=== PATIENT | female | born 1960 | race Caucasian/White ===

== ENCOUNTER 2022-04-22 12:53 | Inpatient (IN) | payer OTHER, SELFPAY ==
--- NOTE | 2022-04-22 | ECG_ITS ---
Test Reason : MED CLEARANCE Blood Pressure : / mmHG Vent. Rate : 072 BPM Atrial Rate : 072 BPM P-R Int : 142 ms QRS Dur : 066 ms QT Int : 376 ms P-R-T Axes : 040 073 053 degrees QTc Int : 411 ms Normal sinus rhythm Normal ECG No previous ECGs available Referred By: Emma Shelton Electronically Signed By:VONNIE BURLESON
--- NOTE | ~2022-04-22 | XR_ITS ---
EXAMINATION: XR ABDOMEN KUB CLINICAL INDICATION: Constipation. COMPARISON: None TECHNIQUE: AP view of the abdomen. FINDINGS: There is a nonobstructive bowel gas pattern. Mild to moderate gas and stool are seen within the colon distally to the rectum. The osseous structures are unremarkable. XR/XR KUB IMPRESSION: Nonobstructive bowel gas pattern. Mild to moderate colonic stool burden.
--- NOTE | 2022-04-22 13:24 | ED_ITS ---
HPI - General Adult General Chief complaint: Psychiatric Symptoms Stated complaint: SI Time Seen by Provider: 04/22/22 13:24 Source: patient Mode of arrival: ambulatory Limitations: no limitations History of Present Illness HPI narrative: Patient is a 61 year old female presenting to the emergency department today with suicidal ideation and depression. Patient states that lately she has been much more depressed and yesterday, she had thoughts of hurting herself. Patient denies any dizziness, lightheadedness, abdominal pain, nausea, vomiting, fever, chills, blurry vision, double vision, loss of vision, chest pain, difficulty breathing, shortness of breath, back pain, night sweats, pain with urination, increased urinary frequency, increased urinary urgency, blood in her urine or stool, syncope or a near syncopal episode, recent trauma or falls, bowel incontinence, bladder incontinence, bowel retention, bladder retention, or any other complaints at this time. Onset (ago): day(s) Severity: mild Severity scale (1-10): 2 Relieving factors: none Exacerbating factors: none Associated symptoms: denies other symptoms Treatments prior to arrival: none Related Data Allergies Allergy/AdvReac Type Severity Reaction Status Date / Time Unable to Assess Allergy Verified 04/22/22 13:28 Review of Systems Constitutional: Constitutional: Reports no additional constitutional complaints, Denies chills, Denies fever(s) and Denies night sweats Eyes: Eyes: Reports no additional eye complaints, Denies blurry vision, Denies change in vision, Denies diplopia, Denies eye discharge, Denies loss of vision and Denies eye pain ENT: Denies dizziness Cardiovascular: Cardiovascular: Reports no additional cardiovascular complaints, Denies chest pain, Denies lightheadedness, Denies Loss of Consciousness and Denies dyspnea Respiratory: Respiratory: Reports no additional respiratory complaints and Denies dyspnea Gastrointestinal: Gastrointestinal: Reports no additional gastrointestinal complaints, Denies abdominal pain, Denies melena, Denies hematochezia, Denies change in bowel habits and Denies change in stool character Genitourinary: Genitourinary: Denies hematuria, Denies urinary frequency, Denies dysuria, Denies urinary incontinence, Denies urinary hesitancy and Denies urinary urgency Musculoskeletal: Musculoskeletal: Reports no additional musculoskeletal complaints, Denies numbness and Denies tingling Neurologic: Denies dizziness, Denies loss of vision, Denies numbness and De nies tingling Psychiatric: Psychiatric: Reports no additional psychiatric complaints, Reports depression and Reports suicidal ideation Endocrine: Endocrine: Reports no additional endocrine complaints Hematologic/Lymphatic: Hematologic/Lymphatic: Reports no additional hematologic/lymphatic complaints Allergic/Immunologic: Allergic/Immunologic: Reports no additional allergic/immunologic complaints [facility] Past Medical History Attestation statement: The following information was validated with the patient. Source: old records reviewed Social History Social History Advance Directives: No Advance Directives Information Provided: Yes Physical Exam ED Vital Signs: Vital Signs - 24 hr 04/22/22 15:02 Temperature 97.9 F Blood Pressure 130/79 Pulse Oximetry 97 Oxygen Delivery Method Room Air BMI result Body Mass Index 22.6 Const General: cooperative, no acute distress, alert and awake Nutritional Appearance: well nourished Orientation/consciousness: patient oriented x3 Limitations: no limitations HENMT Head: Yes normal to inspection and Yes atraumatic Ears: hearing grossly normal bilaterally and external ears normal General nose exam: Normal external nose present, no nasal discharge noted and no epistaxis Face and sinus: Yes normal facial exam, No abrasion and No laceration Mouth: Normal oral and palatal mucosa present, no drooling and no muffled voice Eyes General: appearance normal, both eyes and all related structures Periorbital: periorbital findings normal Eyelids: Yes eyelids normal Conjunctivae: conjunctivae normal Pupils: Equal, round and reactive pupils present EOM: EOMs intact bilaterally Neck Neck: Yes normal visual inspection, Yes full ROM and Yes no lymphadenopathy Chest Chest palpation & inspection: normal inspection of the chest Resp Effort & Inspection: normal respiratory effort and able to speak in complete se ntences Auscultation: clear to auscultation bilaterally Cardio Rate: regular rate Rhythm: regular rhythm GI Inspection: Yes normal to inspection Neuro General: patient oriented x3 and moves all extremities Cranial nerves: Yes Equal, round and reactive pupils present Cognition (Neuro): normal cognition Motor exam (neuro): 5/5 motor strength present throughout Sensory Exam: Normal double simultaneous stimulation for sensation Coordination: [id number] test normal Extrem General: Yes normal to inspection, Yes full ROM and Yes capillary refill normal Psych Appearance: grossly normal Mental Status: mental status grossly normal Affect: Sad affect present Attitude: cooperative Thought process: Normal thought process present Thought content: Suicidality present Insight: Good insight present (Psych) Medical Decision Making MDM Narrative Medical decision making narrative: Patient is a 61 year old female presenting to the emergency department today with increased depression and suicidal ideation. Patient's physical exam was unremarkable. Patient's blood work was unremarkable. Patient's urine showed an acute urinary tract infection. I explained my physical exam findings as well as all test results to the patient. I answered all questions asked by the patient. Patient was started on PO Keflex for her urinary tract infection. Patient is currently awaiting crisis evaluation. Differential Diagnosis Differential Diagnosis: depression, SI, UTI Medical Records Medical records reviewed: Yes I reviewed the patient's medical records. Lab Data Lab results reviewed: Yes I reviewed the patient's lab results. Labs: Lab Results 04/22/22 04/22/22 04/22/22 Range/Units 13:24 14:17 14:17 Urine Color Yellow Urine Appearance Clear Urine pH 7.0 (5.0-8.0) Ur Specific [place] 1.020 (1.005-1.025) Urine Protein Negative (Neg-Trace) mg/dL Urine Glucose (UA) Negative (Negative) mg/dL Urine Ketones 40 (Negative) mg/dL Urine Blood Negative (Negative) Urine Nitrite Negative (Negative) Ur Leukocyte Esterase Moderate (2+) H (Negative) Urine RBC 6-10 H (0-2) /HPF Urine WBC 11-20 H (0-5) /HPF Ur Squamous Epith Cells 3-5 (0-2) /HPF Urine Bacteria None Seen (None Seen) Hyaline Casts 0-2 (0-2) /LPF Urine Opiates Screen Not Detected (Not Detect) Urine Fentanyl Screen POSITIVE H (Not Detect) Ur Barbiturates Screen Not Detected (Not Detect) Valproic Acid (50.0-100.0) mcg/mL Ur Phencyclidine Scrn Not Detected (Not Detect) Ur Amphetamines Screen Not Detected (Not Detect) U Benzodiazepines Scrn Not Detected (Not Detect) Urine Cocaine Screen Not Detected (Not Detect) U Marijuana (THC) Screen Not Detected (Not Detect) COVID-19 ([facility]) Negative (Negative) COVID-19 Clin Com See Note 04/22/22 Range/Units 16:23 Urine Color Urine Appearance Urine pH (5.0-8.0) Ur Specific [place] (1.005-1.025) Urine Protein (Neg-Trace) mg/dL Urine Glucose (UA) (Negative) mg/dL Urine Ketones (Negative) mg/dL Urine Blood (Negative) Urine Nitrite (Negative) Ur Leukocyte Esterase (Negative) Urine RBC (0-2) /HPF Urine WBC (0-5) /HPF Ur Squamous Epith Cells (0-2) /HPF Urine Bacteria (None Seen) Hyaline Casts (0-2) /LPF Urine Opiates Screen (Not Detect) Urine Fentanyl Screen (Not Detect) Ur Barbiturates Screen (Not Detect) Valproic Acid 92.3 (50.0-100.0) mcg/mL Ur Phencyclidine Scrn (Not Detect) Ur Amphetamines Screen (Not Detect) U Benzodiazepines Scrn (Not Detect) Urine Cocaine Screen (Not Detect) U Marijuana (THC) Screen (Not Detect) COVID-19 ([facility]IS) (Negative) COVID-19 Clin Com Discharge Plan Discharge Clinical Impression: Depression, Suicidal ideation, Urinary tract infection Patient Disposition: Still a Patient Instructions: Depression (ED), Urinary Tract Infection in Women (ED) Print Language: Chinese
[2022-04-22 13:51] LABS: COVID-19 Test Negative (Negative); IDNOW Serial# 16C4AD1C
[2022-04-22 14:33] LABS: Appearance Urine Clear; Color Urine Yellow; Glucose Urine UA Negative (Negative); Leukocyte Esterase Urine Moderate (2+) (Negative); Nitrite Urine Negative (Negative); Urine Blood Negative (Negative); Urine Ketones 40 mg/dL (Negative); Urine Protein Negative (Neg-Trace)
[2022-04-22 14:47] LABS: Bacteria Urine None Seen (None Seen); Hyaline Casts Urine 0-2 /LPF (0-2); UACC Culture Trigger YES
[2022-04-22 14:49] LABS: Amphetamine Screen Urine Not Detected (Not Detect); Barbiturates, Urine Not Detected (Not Detect); Benzodiazepines Screen Urine Not Detected (Not Detect); Cannabinoid Screen Urine Not Detected (Not Detect); Cocaine Screen Urine Not Detected (Not Detect); Fentanyl, urine POSITIVE (Not Detect); Opiate Screen Urine Not Detected (Not Detect); Phencyclidine Screen Urine Not Detected (Not Detect)
[2022-04-22 15:02] VITALS: BP 130/79; TEMP 36.6; O2SAT 97; BMI 22.6
[2022-04-22 16:49] LABS: Valproate 92.3 mcg/mL (50.0-100.0)
[2022-04-22] MEDS: LORazepam 1 MG TABLET 2 MG PO (17:28)
[2022-04-22] MEDS: cephALEXin 500 MG CAPSULE PO ×2 (17:28→22:07)
[2022-04-22 21:35] LABS: Glucose, Whole Blood 106 mg/dL (60-115)
[2022-04-22 21:50] LABS: Alanine Aminotransferase 15 U/L (0-31); Albumin Level 3.8 g/dL (3.5-5.0); Alkaline Phosphatase 52 U/L (39-117); Anion Gap 13 (12-20); Aspartate Amino Transferase 20 U/L (5-31); Bilirubin Total < 0.2 mg/dL (0.0-1.0); Blood Urea Nitrogen 15 mg/dL (9-16); Calcium 8.5 mg/dL (8.4-10.2); Carbon Dioxide 30 mmol/L (22-29); Chloride 105 mmol/L (96-108); Creatinine Clr Calc Pharmacy 63.1; Estimated Glomerular Filt Rate > 60; Glucose Random 127 mg/dL (60-115); Potassium 5.3 mmol/L (3.3-5.1); Sodium 143 mmol/L (135-145); Total Protein 6.1 g/dL (6.5-8.0)
[2022-04-22 23:02] LABS: TSH reflex Free T4 2.42 uIU/mL (0.32-4.0)
[2022-04-23 04:25] VITALS: BP 129/69; PULSE 79; RESP 14; TEMP 36.4; O2SAT 95
--- NOTE | 2022-04-23 06:45 | PC.NURSE ---
Patient slept through the night, no distress observed/reported, med rec completed/pending provider's approval, medication will be resumed after psych consult, patient's daughter Ti cell # [phone] called to jazmin barrera hand, daughter reported it all started after patient was started on Depakote early March, provider notified of the news, behavior appropriate, VSS, disposition per [facility] is section 12 inpatient bed search, will continue to monitor.
--- NOTE | 2022-04-23 07:31 | PC.NURSE ---
patient appears to remain asleep at present respirations are even and unlabored patient appears in no distress
[2022-04-23 09:53] LABS: Ammonia 50 umol/L (13-55)
[2022-04-23 09:57] LABS: Basophils Percent Auto 0.6 % (0-2); Eosinophils Absolute Auto 0.1 X10*3/uL (0.0-0.4); Eosinophils Percent Auto 2.7 % (0-4); Hematocrit 44.8 % (37.0-47.0); Hemoglobin 14.4 g/dl (12.0-16.0); Imm Gran Abs Auto 0.01 X10*3/uL (0.00-0.03); Imm Gran Pct Auto 0.2 % (0.0-0.4); Lymphocytes Absolute Auto 1.9 X10*3/uL (1.2-4.9); Lymphocytes Percent Auto 35.7 % (20-40); MANUAL DIFF FLAG SCAN; Mean Corpuscular HGB Conc 32.1 g/dl (31.0-35.0); Mean Corpuscular Hemoglobin 29.6 pg (27.0-33.0); Mean Corpuscular Volume 92.2 fL (80.0-98.0); Mean Platelet Volume 11.9 fL (9.4-12.3); Monocytes Absolute Auto 0.4 X10*3/uL (0.1-1.2); Monocytes Percent Auto 7.6 % (2-11); Neutrophils Absolute Auto 2.8 x10*3/uL (2.0-8.3); Neutrophils Percent Auto 53.2 % (45-73); PLT CLUMP 1; Red Blood Count 4.86 X10*6/uL (4.20-5.50); Red Cell Distribution Width 13.8 % (11.0-16.0); SCAN SMEAR FLAG 1
[2022-04-23] MEDS: cephALEXin 500 MG CAPSULE PO ×4 (10:15→21:44)
[2022-04-23] MEDS: hydrOXYzine HCL 25 MG TABLET PO (10:15)
--- NOTE | 2022-04-23 10:24 | PC.NURSE ---
while administering meds, patient exhibits continued confusion aeb client took meds in mouth then placed pills back in med cup and floated them in water, patient started to hand back to t/w and i explained she should take the medication.
[2022-04-23 10:46] LABS: White Blood Count 5.3 X10*3/uL (4.8-10.8)
[2022-04-23 10:49] LABS: SLIDE REVIEW VERIFIED
--- NOTE | 2022-04-23 13:35 | PHA.MEDREC ---
Pharmacy Consult ? Medication Reconciliation Pharmacy has completed the medication reconciliation. Reviewed med rec done by nursing
[2022-04-23 14:06] VITALS: BP 92/48; PULSE 80; RESP 12; TEMP 36.4; O2SAT 97
[2022-04-23] MEDS: FLUoxetine HCl 20 MG CAPSULE PO (14:42)
[2022-04-23] MEDS: Divalproex Sodium ER 250 MG TAB.ER.24H PO (14:43)
[2022-04-23] MEDS: ARIPiprazole 10 MG TABLET PO ×2 (14:43→21:40)
--- NOTE | 2022-04-23 15:22 | PC.NURSE ---
Pt seen this date for individual OT tx. Pt presents with depressed mood however reports feeling better than yesterday as well as sleeping through the night. Pt is receptive to crossword puzzles, coloring pages, and sensory item provided.
[2022-04-23 17:25] VITALS: BP 120/77; PULSE 85; RESP 16; TEMP 36.4; O2SAT 98
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
--- NOTE | 2022-04-23 19:30 | PC.NURSE ---
Pt is a COVID-negative female who presented to ED with depression and passive SI at request of daughter due to pt?s erratic, paranoid and bizarre behavior, not sleeping, talking to herself, AVH, possibly olfactory hallucinations, impaired insight and judgment. Recent weight loss of up to 20+ lbs., low appetite, low energy. Pt reports a fall at [facility] where she tripped. MedHx: Trouble opening right eye in a.m., reports intermittent tachycardia, reports left lung pain/points to back, poor appetite per daughter, UTI per [id number] (on Keflex), dry skin, right leg swelling in stein area. Reports hx of sleep apnea but inability to use the CPAP. PsycheHx: Schizoaffective disorder, bipolar type. Daughter reported pt packing bag and dressing in heels to go to the bathroom, letting dogs out in middle of the night, and VH of worms on food and on her hands.? High fall risk due to unclear fall hx. Pt reported falling at [facility] in the past few days.
[2022-04-23] MEDS: Divalproex Sodium ER 500 MG TAB.ER.24H 1000 MG PO (21:40)
[2022-04-24] MEDS: Levothyroxine Sodium 25 MCG TABLET PO (06:17)
[2022-04-24] MEDS: Omeprazole 40 MG CAPSULE.DR PO (06:17)
[2022-04-24 09:44] LABS: Estimated Average Glucose 111 mg/dL; Hemoglobin A1c % 5.5 %
[2022-04-24 10:00] LABS: Alanine Aminotransferase 16 U/L (0-31); Alkaline Phosphatase 43 U/L (39-117); Anion Gap 15 (12-20); Aspartate Amino Transferase 21 U/L (5-31); Bilirubin Total 0.4 mg/dL (0.0-1.0); Blood Urea Nitrogen 16 mg/dL (9-16); Carbon Dioxide 29 mmol/L (22-29); Chloride 103 mmol/L (96-108); Cholesterol 195 mg/dL; Creatinine Clr Calc Pharmacy 59.1; Estimated Glomerular Filt Rate > 60; Glucose Fasting 96 mg/dL (60-99); HDL Cholesterol 73 mg/dL; LDL Cholesterol Calculated 110 mg/dl; Potassium 4.6 mmol/L (3.3-5.1); Sodium 142 mmol/L (135-145); Total Protein 6.6 g/dL (6.5-8.0); Triglycerides 61 mg/dL
[2022-04-24 10:13] VITALS: BP 128/65; PULSE 87; RESP 16; TEMP 36.6; O2SAT 99
[2022-04-24] MEDS: Divalproex Sodium ER 250 MG TAB.ER.24H PO (10:15)
[2022-04-24] MEDS: FLUoxetine HCl 20 MG CAPSULE PO (10:15)
[2022-04-24] MEDS: ARIPiprazole 10 MG TABLET PO (10:15)
[2022-04-24] MEDS: cephALEXin 500 MG CAPSULE PO ×4 (10:15→20:20)
[2022-04-24] MEDS: Cholecalciferol (Vitamin D3) 10 MCG TABLET PO (10:16)
[2022-04-24 10:22] LABS: Thyroid Stimulating Hormone 5.06 uIU/mL (0.32-4.0)
[2022-04-24 10:36] LABS: Vitamin B12 885 pg/mL (200-900)
[2022-04-24] MEDS: Acetaminophen 325 MG TABLET 650 MG PO ×2 (14:50→20:20)
[2022-04-24] MEDS: Throat Lozenge, Medicated LOZENGE 1 LOZENGE MUCOUS MEM ×2 (17:09→19:08)
--- NOTE | 2022-04-24 17:24 | P.PNPSI_ITS ---
Subjective Subjective Date of Service: 04/24/22 Reason For Visit: psychosis Subjective Notes: Benjamin Warning and Conditional Voluntary Healthcare Proxy: No Guardianship: No Medical Problems Affecting Mental Status: No Interim History: I discussed pt with team. I evaluated pt this evening and upon interview pt reports she feels ?better,? has a cough. Still feels ?depressed.? She slept 8-7 hours last night. Anxiety is ?so, so.? Endorses AH, but says ?I dont understand? what they are saying. Denies having fears. Ate all of her dinner. Denies SI/SIB/HI. Says she feels safe. Mental Status Exam Mental Status Exam Narrative: A&O. In casual attire, appears older than stated age. Good eye contact, attentive. No Tics or Tremors. No abnormal involuntary movements. Calm, however appears to be minimizing sx or has poor insight, guarded. Non-pressured speech, spontaneous with regular rate and rhythm, normal volume and prosody. No prolonged speech latency or dysarthria. Mood is ?depressed,? affect is constricted. Denies SI/SIB/HI upon inquiry. Endorses AH, denies VH. Has paranoid delusional thought content. Thoughts are concrete, linear. No known cognitive or memory impairment. Insight/ Judgment limited. Diagnostics Vital Signs (24Hr): Vital Signs - 24 hr 04/23/22 17:25 04/24/22 10:13 Temperature 97.5 F 97.9 F Pulse Rate 85 87 Respiratory Rate 16 16 Blood Pressure 120/77 128/65 Pulse Oximetry 98 99 Oxygen Delivery Method Room Air Room Air BMI result Body Mass Index 22.6 Labs Results: 04/23/22 09:40 04/24/22 09:16 Labs: Laboratory Results - last 48 hr 04/22/22 04/22/22 04/23/22 21:20 21:21 09:40 WBC 5.3 RBC 4.86 Hgb 14.4 Hct 44.8 MCV 92.2 MCH 29.6 MCHC 32.1 RDW 13.8 Plt Count TNP MPV 11.9 Immature Gran % (Auto) 0.2 Neut % (Auto) 53.2 Lymph % (Auto) 35.7 [place] % (Auto) 7.6 Eos % (Auto) 2.7 Baso % (Auto) 0.6 Lymph # (Auto) 1.9 [place] # (Auto) 0.4 Eos # (Auto) 0.1 Baso # (Auto) 0.0 Abs Immat Gran (auto) 0.01 Absolute Neuts (auto) 2.8 Absolute Nucleated RBC 0.000 Nucleated RBC % (auto) 0.0 Smear Tech's Comments VERIFIED Sodium 143 Potassium 5.3 H Chloride 105 Carbon Dioxide 30 H Anion Gap 13 BUN 15 Creatinine 0.74 Estim Creat Clear Calc 63.1 Estimated GFR > 60 POC Glucose 106 Random Glucose 127 H Fasting Glucose Estimat Average Glucose Hemoglobin A1c % Calcium 8.5 Total Bilirubin < 0.2 AST 20 ALT 15 Alkaline Phosphatase 52 Ammonia Total Protein 6.1 L Albumin 3.8 Triglycerides Cholesterol LDL Cholesterol, Calc HDL Cholesterol Vitamin B12 TSH 2.42 04/23/22 04/24/22 04/24/22 09:41 09:16 09:16 WBC RBC Hgb Hct MCV MCH MCHC RDW Plt Count MPV Immature Gran % (Auto) Neut % (Auto) Lymph % (Auto) [place] % (Auto) Eos % (Auto) Baso % (Auto) Lymph # (Auto) [place] # (Auto) Eos # (Auto) Baso # (Auto) Abs Immat Gran (auto) Absolute Neuts (auto) Absolute Nucleated RBC Nucleated RBC % (auto) Smear Tech's Comments Sodium 142 Potassium 4.6 Chloride 103 Carbon Dioxide 29 Anion Gap 15 BUN 16 Creatinine 0.79 Estim Creat Clear Calc 59.1 Estimated GFR > 60 POC Glucose Random Glucose Fasting Glucose 96 Estimat Average Glucose 111 Hemoglobin A1c % 5.5 Calcium 9.0 Total Bilirubin 0.4 AST 21 ALT 16 Alkaline Phosphatase 43 Ammonia 50 Total Protein 6.6 Albumin 4.0 Triglycerides 61 Cholesterol 195 LDL Cholesterol, Calc 110 HDL Cholesterol 73 Vitamin B12 TSH 5.06 H 04/24/22 09:16 WBC RBC Hgb Hct MCV MCH MCHC RDW Plt Count MPV Immature Gran % (Auto) Neut % (Auto) Lymph % (Auto) [place] % (Auto) Eos % (Auto) Baso % (Auto) Lymph # (Auto) [place] # (Auto) Eos # (Auto) Baso # (Auto) Abs Immat Gran (auto) Absolute Neuts (auto) Absolute Nucleated RBC Nucleated RBC % (auto) Smear Tech's Comments Sodium Potassium Chloride Carbon Dioxide Anion Gap BUN Creatinine Estim Creat Clear Calc Estimated GFR POC Glucose Random Glucose Fasting Glucose Estimat Average Glucose Hemoglobin A1c % Calcium Total Bilirubin AST ALT Alkaline Phosphatase Ammonia Total Protein Albumin Triglycerides Cholesterol LDL Cholesterol, Calc HDL Cholesterol Vitamin B12 885 TSH Medications Medications Current Medications Acetaminophen (Acetaminophen 325 Mg Tablet) 650 mg PO Q6H PRN PRN Reason: Headache/Pain Mild Scale (1-3) Last Admin: 04/24/22 14:50 Dose: 650 mg Al Hydroxide/Mg Hydroxide (Magnesium Hydrox/Alum Hydrox 30 Ml Oral.Susp) 30 ml PO Q6H PRN PRN Reason: Heartburn/Nausea Aripiprazole (Aripiprazole 10 Mg Tablet) 10 mg PO BID [facility] Last Admin: 04/24/22 10:15 Dose: 10 mg Benzocaine (Throat Lozenge, Medicated Lozenge) 1 lozenge MUCOUS MEM Q2H PRN PRN Reason: Sore Throat Last Admin: 04/24/22 17:09 Dose: 1 lozenge Benztropine Mesylate (Benztropine Mesylate 0.5 Mg Tablet) 0.5 mg PO BID PRN PRN Reason: Extrapyramidal Effects/Symptoms Cephalexin HCl (Cephalexin 500 Mg Capsule) 500 mg PO QID [facility] Stop: 04/29/22 17:10 Last Admin: 04/24/22 17:09 Dose: 500 mg Divalproex Sodium (Divalproex Sodium Er 500 Mg Tab.Er.24h) 1,000 mg PO BEDTIME [facility] Last Admin: 04/23/22 21:40 Dose: 1,000 mg Divalproex Sodium (Divalproex Sodium Er 250 Mg Tab.Er.24h) 250 mg PO DAILY [facility] Last Admin: 04/24/22 10:15 Dose: 250 mg Fluoxetine HCl (Fluoxetine Hcl 20 Mg Capsule) 20 mg PO DAILY [facility] Last Admin: 04/24/22 10:15 Dose: 20 mg Hydroxyzine HCl (Hydroxyzine Hcl 25 Mg Tablet) 25 mg PO Q6H PRN PRN Reason: Anxiety Levothyroxine Sodium (Levothyroxine Sodium 25 Mcg Tablet) 25 mcg PO DAILY@0600 [facility] Last Admin: 04/24/22 06:17 Dose: 25 mcg Magnesium Hydroxide (Milk Of Magnesia 30 Ml Oral.Susp) 30 ml PO DAILY PRN PRN Reason: Constipation Omeprazole (Omeprazole 40 Mg Capsule.Dr) 40 mg PO DAILY@0630 [facility] Last Admin: 04/24/22 06:17 Dose: 40 mg Trazodone HCl (Trazodone Hcl 50 Mg Tablet) 50 mg PO BEDTIME PRN PRN Reason: Insomnia Trazodone HCl (Trazodone Hcl 50 Mg Tablet) 50 mg PO BEDTIME PRN PRN Reason: Insomnia Vitamin D (Cholecalciferol (Vitamin D3) 10 Mcg Tablet) 10 mcg PO DAILY [facility] Last Admin: 04/24/22 10:16 Dose: 10 mcg Allergies Allergies Allergy/AdvReac Type Severity Reaction Status Date / Time No Known Allergies Allergy Verified 04/22/22 18:53 Assessment & Plan Assessment & Plan (1) Schizoaffective disorder, bipolar type: Status: Acute Code(s): F25.0 - Schizoaffective disorder, bipolar type Plan Martina is a 61 y.o. Female who carries a dx schizoaffective disorder, bipolar type. She presented to [facility] on 04/22/22 due to her daughter being concerned with her behavior i.e. has not slept x 2 weeks, packs her bags and tries to leave the house in the middle of the night, pouring bleach on meat due to believing there are worms in it. Pt recently discharged from [facility] in 03/2022 due to med non-adherence and decompensation. She has been med adherent since discharge, however daughter does not notice any change in behavior. Pt has hx of paranoid ideations, believing she has worms in her body, and AH. ? of dementia. Plan: Pt's daughter reports depakote is causing tremor, this was not observed but will consider tapering down due to questionable benefit VPA 92.3 on admission. Pt's abilify recently increased on 04/15/22 from 15 mg daily to 10 mg BID, unclear benefit. Pt has hx of med non-adherence but daughter does not want NÚÑEZ again due to hx of EPS on invega sustenna. Will consider zydis to help with sleep and psychosis. 04/24: Will start propranolol 10 mg BID for depakote related tremor and lower depakote to 750 mg daily due to stated SE. Will start zydis 5 mg QHS and lower abilify to 5 mg BID as cross titration for sx of psychosis. Q15 min safety checks, CV Monitor response to medications. Monitor for safety in the milieu. Discharge on stabilization. Patient seen. Chart reviewed. Discussed with team. Obtain collateral contact info?as needed I spent minutes with the patient and/or on the patient floor today, greater than?50% of which was spent counseling/coordinating care. Patient educated on: diagnosis, medication risk/benefits and therapeutic strategies Reason for contiued inpatient stay Substantial Risk for: inability to function, rapid decompensation and med/psych decompensation
[2022-04-24 20:20] VITALS: BP 135/77; PULSE 95; RESP 18; TEMP 36.8; O2SAT 99
[2022-04-24] MEDS: OLANZapine ODT 10 MG TAB.RAPDIS 5 MG TRANSLINGU (20:20)
[2022-04-24] MEDS: Divalproex Sodium ER 500 MG TAB.ER.24H PO (20:21)
[2022-04-24] MEDS: Propranolol HCL 10 MG TABLET PO (20:21)
[2022-04-24] MEDS: ARIPiprazole 5 MG TABLET PO (20:21)
[2022-04-24 21:47] LABS: COVID-19 Test Negative (Negative)
[2022-04-25] MEDS: Throat Lozenge, Medicated LOZENGE 1 LOZENGE MUCOUS MEM ×2 (02:39→21:03)
[2022-04-25 09:00] VITALS: BP 133/87; PULSE 77; RESP 18; TEMP 36.4; O2SAT 98
--- NOTE | 2022-04-25 09:12 | HO.PSYCHPN ---
Subjective Subjective Date of Service: 04/25/22 Reason For Visit: psychosis Subjective Notes: Benjamin Warning and Conditional Voluntary Healthcare Proxy: No Guardianship: No Medical Problems Affecting Mental Status: No Interim History: I spoke with pt's team and evaluated pt with dock grader. She says she alright, tremors are a little better. Denies dizziness on propranolol. Appetite is good, but says it has been 3-4 or more days since last BM, will prescrie SANDRA nunez. Sleep is okay, improved on olanzapine. Says she still hears voices but doesnt know what they are saying. Says depression is the same. Feels a little anxious, unable to say why. Medication Compliance: Yes Side effects from medications: No Attending Groups: No Review of Systems Acute medical concerns: No Medical Review of Systems: unchanged Mental Status Exam Mental Status Exam Narrative: A&O. In casual attire, appears older than stated age. Good eye contact, attentive. No Tics or Tremors. No abnormal involuntary movements. Calm, however appears to be minimizing sx or has poor insight, guarded. Non-pressured speech, spontaneous with regular rate and rhythm, normal volume and prosody. No prolonged speech latency or dysarthria. Mood is ?depressed,? affect is constricted. Denies SI/SIB/HI upon inquiry. Endorses AH, denies VH. Has paranoid delusional thought content. Thoughts are concrete, linear. No known cognitive or memory impairment. Insight/ Judgment limited. Diagnostics Vital Signs (24Hr): Vital Signs - 24 hr 04/24/22 10:13 04/24/22 20:20 Temperature 97.9 F 98.2 F Pulse Rate 87 95 Respiratory Rate 16 18 Blood Pressure 128/65 135/77 Pulse Oximetry 99 99 Oxygen Delivery Method Room Air Room Air BMI result Body Mass Index 22.6 Labs Results: 04/23/22 09:40 04/24/22 09:16 Labs: Laboratory Results - last 48 hr 04/23/22 04/23/22 04/24/22 09:40 09:41 09:16 WBC 5.3 RBC 4.86 Hgb 14.4 Hct 44.8 MCV 92.2 MCH 29.6 MCHC 32.1 RDW 13.8 Plt Count TNP MPV 11.9 Immature Gran % (Auto) 0.2 Neut % (Auto) 53.2 Lymph % (Auto) 35.7 [place] % (Auto) 7.6 Eos % (Auto) 2.7 Baso % (Auto) 0.6 Lymph # (Auto) 1.9 [place] # (Auto) 0.4 Eos # (Auto) 0.1 Baso # (Auto) 0.0 Abs Immat Gran (auto) 0.01 Absolute Neuts (auto) 2.8 Absolute Nucleated RBC 0.000 Nucleated RBC % (auto) 0.0 Smear Tech's Comments VERIFIED Sodium 142 Potassium 4.6 Chloride 103 Carbon Dioxide 29 Anion Gap 15 BUN 16 Creatinine 0.79 Estim Creat Clear Calc 59.1 Estimated GFR > 60 Fasting Glucose 96 Estimat Average Glucose Hemoglobin A1c % Calcium 9.0 Total Bilirubin 0.4 AST 21 ALT 16 Alkaline Phosphatase 43 Ammonia 50 Total Protein 6.6 Albumin 4.0 Triglycerides 61 Cholesterol 195 LDL Cholesterol, Calc 110 HDL Cholesterol 73 Vitamin B12 TSH 5.06 H COVID-19 ([facility]) [id number] 04/24/22 04/24/22 04/24/22 09:16 09:16 21:15 WBC RBC Hgb Hct MCV MCH MCHC RDW Plt Count MPV Immature Gran % (Auto) Neut % (Auto) Lymph % (Auto) [place] % (Auto) Eos % (Auto) Baso % (Auto) Lymph # (Auto) [place] # (Auto) Eos # (Auto) Baso # (Auto) Abs Immat Gran (auto) Absolute Neuts (auto) Absolute Nucleated RBC Nucleated RBC % (auto) Smear Tech's Comments Sodium Potassium Chloride Carbon Dioxide Anion Gap BUN Creatinine Estim Creat Clear Calc Estimated GFR Fasting Glucose Estimat Average Glucose 111 Hemoglobin A1c % 5.5 Calcium Total Bilirubin AST ALT Alkaline Phosphatase Ammonia Total Protein Albumin Triglycerides Cholesterol LDL Cholesterol, Calc HDL Cholesterol Vitamin B12 885 TSH COVID-19 ([facility]) Negative COVID-19 [employer] See Note Medications Medications Current Medications Acetaminophen (Acetaminophen 325 Mg Tablet) 650 mg PO Q6H PRN PRN Reason: Headache/Pain Mild Scale (1-3) Last Admin: 04/24/22 20:20 Dose: 650 mg Al Hydroxide/Mg Hydroxide (Magnesium Hydrox/Alum Hydrox 30 Ml Oral.Susp) 30 ml PO Q6H PRN PRN Reason: Heartburn/Nausea Aripiprazole (Aripiprazole 5 Mg Tablet) 5 mg PO BID [facility] Last Admin: 04/24/22 20:21 Dose: 5 mg Benzocaine (Throat Lozenge, Medicated Lozenge) 1 lozenge MUCOUS MEM Q2H PRN PRN Reason: Sore Throat Last Admin: 04/25/22 02:39 Dose: 1 lozenge Benztropine Mesylate (Benztropine Mesylate 0.5 Mg Tablet) 0.5 mg PO BID PRN PRN Reason: Extrapyramidal Effects/Symptoms Cephalexin HCl (Cephalexin 500 Mg Capsule) 500 mg PO QID [facility] Stop: 04/29/22 17:10 Last Admin: 04/24/22 20:20 Dose: 500 mg Divalproex Sodium (Divalproex Sodium Er 250 Mg Tab.Er.24h) 250 mg PO DAILY [facility] Last Admin: 04/24/22 10:15 Dose: 250 mg Divalproex Sodium (Divalproex Sodium Er 500 Mg Tab.Er.24h) 500 mg PO BEDTIME [facility] Last Admin: 04/24/22 20:21 Dose: 500 mg Guaifenesin/Dextromethorphan (Guaifenesin Dm 100/10/5 Ml 5 Ml Syrup) 5 ml PO Q6H PRN PRN Reason: cough Hydroxyzine HCl (Hydroxyzine Hcl 25 Mg Tablet) 25 mg PO Q6H PRN PRN Reason: Anxiety Levothyroxine Sodium (Levothyroxine Sodium 25 Mcg Tablet) 25 mcg PO DAILY@0600 [facility] Last Admin: 04/24/22 06:17 Dose: 25 mcg Magnesium Hydroxide (Milk Of Magnesia 30 Ml Oral.Susp) 30 ml PO DAILY PRN PRN Reason: Constipation Olanzapine (Olanzapine Odt 10 Mg Tab.Rapdis) 5 mg TRANSLINGU BEDTIME [facility] Last Admin: 04/24/22 20:20 Dose: 5 mg Omeprazole (Omeprazole 40 Mg Capsule.Dr) 40 mg PO DAILY@0630 [facility] Last Admin: 04/24/22 06:17 Dose: 40 mg Propranolol HCl (Propranolol Hcl 10 Mg Tablet) 10 mg PO BID [facility]; Protocol Last Admin: 04/24/22 20:21 Dose: 10 mg Trazodone HCl (Trazodone Hcl 50 Mg Tablet) 50 mg PO BEDTIME PRN PRN Reason: Insomnia Vitamin D (Cholecalciferol (Vitamin D3) 10 Mcg Tablet) 10 mcg PO DAILY [facility] Last Admin: 04/24/22 10:16 Dose: 10 mcg Allergies Allergies Allergy/AdvReac Type Severity Reaction Status Date / Time No Known Allergies Allergy Verified 04/22/22 18:53 Assessment & Plan Assessment & Plan (1) Schizoaffective disorder, bipolar type: Status: Acute Code(s): F25.0 - Schizoaffective disorder, bipolar type Plan Martina is a 61 y.o. Female who carries a dx schizoaffective disorder, bipolar type. She presented to [facility] on 04/22/22 due to her daughter being concerned with her behavior i.e. has not slept x 2 weeks, packs her bags and tries to leave the house in the middle of the night, pouring bleach on meat due to believing there are worms in it. Pt recently discharged from [facility] in 03/2022 due to med non-adherence and decompensation. She has been med adherent since discharge, however daughter does not notice any change in behavior. Pt has hx of paranoid ideations, believing she has worms in her body, and AH. ? of dementia. Plan: Pt's daughter reports depakote is causing tremor, this was not observed but will consider tapering down due to questionable benefit VPA 92.3 on admission. Pt's abilify recently increased on 04/15/22 from 15 mg daily to 10 mg BID, unclear benefit. Pt has hx of med non-adherence but daughter does not want NÚÑEZ again due to hx of EPS on invega sustenna. Will consider zydis to help with sleep and psychosis. 04/24: Will start propranolol 10 mg BID for depakote related tremor and lower depakote to 750 mg daily due to stated SE. Will start zydis 5 mg QHS and lower abilify to 5 mg BID as cross titration for sx of psychosis. 04/25: No medication changes, tremor improved Q15 min safety checks, CV Monitor response to medications. Monitor for safety in the milieu. Discharge on stabilization. Patient seen. Chart reviewed. Discussed with team. Obtain collateral contact info?as needed I spent minutes with the patient and/or on the patient floor today, greater than?50% of which was spent counseling/coordinating care. Patient educated on: diagnosis, medication risk/benefits and therapeutic strategies Reason for contiued inpatient stay Substantial Risk for: rapid decompensation and med/psych decompensation
[2022-04-25] MEDS: Cholecalciferol (Vitamin D3) 10 MCG TABLET PO (10:48)
[2022-04-25] MEDS: cephALEXin 500 MG CAPSULE PO ×4 (10:48→21:57)
[2022-04-25] MEDS: Divalproex Sodium ER 250 MG TAB.ER.24H PO (10:48)
[2022-04-25] MEDS: Omeprazole 40 MG CAPSULE.DR PO (10:49)
[2022-04-25] MEDS: ARIPiprazole 5 MG TABLET PO ×2 (10:49→21:57)
[2022-04-25] MEDS: Propranolol HCL 10 MG TABLET PO ×2 (10:49→21:02)
[2022-04-25] MEDS: Levothyroxine Sodium 25 MCG TABLET PO (11:29)
[2022-04-25] MEDS: Acetaminophen 325 MG TABLET 650 MG PO (21:03)
[2022-04-25 21:55] VITALS: BP 133/93; PULSE 87; RESP 18; TEMP 36.2; O2SAT 97
[2022-04-25] MEDS: OLANZapine ODT 10 MG TAB.RAPDIS 5 MG TRANSLINGU (21:57)
[2022-04-25] MEDS: polyethylene glycoL 3350 17 GM POWD.PACK PO (21:59)
[2022-04-25] MEDS: Divalproex Sodium ER 500 MG TAB.ER.24H PO (22:00)
[2022-04-26] MEDS: Throat Lozenge, Medicated LOZENGE 1 LOZENGE MUCOUS MEM (01:30)
[2022-04-26 10:00] VITALS: BP 130/83; PULSE 88; RESP 18; TEMP 36.3; O2SAT 98
[2022-04-26] MEDS: ARIPiprazole 5 MG TABLET PO (10:23)
[2022-04-26] MEDS: Omeprazole 40 MG CAPSULE.DR PO (10:24)
[2022-04-26] MEDS: Cholecalciferol (Vitamin D3) 10 MCG TABLET PO (10:25)
[2022-04-26] MEDS: Divalproex Sodium ER 250 MG TAB.ER.24H PO (10:25)
[2022-04-26] MEDS: Levothyroxine Sodium 25 MCG TABLET PO (10:25)
[2022-04-26] MEDS: cephALEXin 500 MG CAPSULE PO ×4 (10:25→22:43)
[2022-04-26] MEDS: Propranolol HCL 10 MG TABLET PO ×2 (10:26→22:44)
[2022-04-26] MEDS: polyethylene glycoL 3350 17 GM POWD.PACK PO ×2 (10:28→22:44)
--- NOTE | 2022-04-26 12:47 | P.PNPSI_ITS ---
Subjective Subjective Date of Service: 04/26/22 Reason For Visit: psychosis Subjective Notes: Benjamin Warning and Conditional Voluntary Interim History: I spoke with pt with fpga engineer. Says she has no voice today due to sore throat, covid swab negative. Denies concerns or questions. Sleep was okay, mood is good, tremors are a lot less. Still sometimes hears voices, does not understand them. Says she feels safe, denies SI/SIB. She does not endorse delusional thought content about worms or parasites. Medication Compliance: Yes Side effects from medications: No Attending Groups: No Review of Systems Acute medical concerns: No Medical Review of Systems: unchanged Mental Status Exam Mental Status Exam Narrative: A&O. In casual attire, appears older than stated age. Good eye contact, attentive. No Tics or Tremors. No abnormal involuntary movements. Calm, however appears to be minimizing sx or has poor insight, guarded. Non-pressured speech, spontaneous with regular rate and rhythm, normal volume and prosody. No prolonged speech latency or dysarthria. Mood is ?depressed,? affect is constricted. Denies SI/SIB/HI upon inquiry. Endorses AH, denies VH. Has paranoid delusional thought content. Thoughts are concrete, linear. No known cognitive or memory impairment. Insight/ Judgment limited. Diagnostics Vital Signs (24Hr): Vital Signs - 24 hr 04/25/22 21:55 Temperature 97.2 F Pulse Rate 87 Respiratory Rate 18 Blood Pressure 133/93 H Pulse Oximetry 97 Oxygen Delivery Method Room Air BMI result Body Mass Index 22.6 Labs Results: 04/23/22 09:40 04/24/22 09:16 Labs: Laboratory Results - last 48 hr 04/24/22 21:15 COVID-19 ([facility]) Negative COVID-19 [facility] See Note Imaging Radiology Impressions: ITS Impressions [facility] X-Ray 04/25/22 12:06 IMPRESSION: Nonobstructive bowel gas pattern. Mild to moderate colonic stool burden. Medications Medications Current Medications Acetaminophen (Acetaminophen 325 Mg Tablet) 650 mg PO Q6H PRN PRN Reason: Headache/Pain Mild Scale (1-3) Last Admin: 04/25/22 21:03 Dose: 650 mg Al Hydroxide/Mg Hydroxide (Magnesium Hydrox/Alum Hydrox 30 Ml Oral.Susp) 30 ml PO Q6H PRN PRN Reason: Heartburn/Nausea Aripiprazole (Aripiprazole 5 Mg Tablet) 5 mg PO BID [facility] Last Admin: 04/26/22 10:23 Dose: 5 mg Benzocaine (Throat Lozenge, Medicated Lozenge) 1 lozenge MUCOUS MEM Q2H PRN PRN Reason: Sore Throat Last Admin: 04/26/22 01:30 Dose: 1 lozenge Benztropine Mesylate (Benztropine Mesylate 0.5 Mg Tablet) 0.5 mg PO BID PRN PRN Reason: Extrapyramidal Effects/Symptoms Cephalexin HCl (Cephalexin 500 Mg Capsule) 500 mg PO QID [facility] Stop: 04/29/22 17:10 Last Admin: 04/26/22 10:25 Dose: 500 mg Divalproex Sodium (Divalproex Sodium Er 250 Mg Tab.Er.24h) 250 mg PO DAILY [facility] Last Admin: 04/26/22 10:25 Dose: 250 mg Divalproex Sodium (Divalproex Sodium Er 500 Mg Tab.Er.24h) 500 mg PO BEDTIME [facility] Last Admin: 04/25/22 22:00 Dose: 500 mg Guaifenesin/Dextromethorphan (Guaifenesin Dm 100/10/5 Ml 5 Ml Syrup) 5 ml PO Q6H PRN PRN Reason: cough Hydroxyzine HCl (Hydroxyzine Hcl 25 Mg Tablet) 25 mg PO Q6H PRN PRN Reason: Anxiety Levothyroxine Sodium (Levothyroxine Sodium 25 Mcg Tablet) 25 mcg PO DAILY@0600 [facility] Last Admin: 04/26/22 10:25 Dose: 25 mcg Magnesium Hydroxide (Milk Of Magnesia 30 Ml Oral.Susp) 30 ml PO DAILY PRN PRN Reason: Constipation Olanzapine (Olanzapine Odt 10 Mg Tab.Rapdis) 5 mg TRANSLINGU BEDTIME [facility] Last Admin: 04/25/22 21:57 Dose: 5 mg Omeprazole (Omeprazole 40 Mg Capsule.Dr) 40 mg PO DAILY@0630 [facility] Last Admin: 04/26/22 10:24 Dose: 40 mg Polyethylene Glycol (Polyethylene Glycol 3350 17 Gm Powd.Pack) 17 gm PO BID [facility] Last Admin: 04/26/22 10:28 Dose: 17 gm Propranolol HCl (Propranolol Hcl 10 Mg Tablet) 10 mg PO BID [facility]; Protocol Last Admin: 04/26/22 10:26 Dose: 10 mg Trazodone HCl (Trazodone Hcl 50 Mg Tablet) 50 mg PO BEDTIME PRN PRN Reason: Insomnia Vitamin D (Cholecalciferol (Vitamin D3) 10 Mcg Tablet) 10 mcg PO DAILY [facility] Last Admin: 04/26/22 10:25 Dose: 10 mcg Allergies Allergies Allergy/AdvReac Type Severity Reaction Status Date / Time No Known Allergies Allergy Verified 04/22/22 18:53 Assessment & Plan Assessment & Plan (1) Schizoaffective disorder, bipolar type: Status: Acute Code(s): F25.0 - Schizoaffective disorder, bipolar type Plan Martina is a 61 y.o. Female who carries a dx schizoaffective disorder, bipolar type. She presented to [facility] on 04/22/22 due to her daughter being concerned with her behavior i.e. has not slept x 2 weeks, packs her bags and tries to leave the house in the middle of the night, pouring bleach on meat due to believing there are worms in it. Pt recently discharged from [facility] in 03/2022 due to med non-adherence and decompensation. She has been med adherent since discharge, however daughter does not notice any change in behavior. Pt has hx of paranoid ideations, believing she has worms in her body, and AH. ? of dementia. Plan: Pt's daughter reports depakote is causing tremor, this was not observed but will consider tapering down due to questionable benefit VPA 92.3 on admission. Pt's abilify recently increased on 04/15/22 from 15 mg daily to 10 mg BID, unclear benefit. Pt has hx of med non-adherence but daughter does not want NÚÑEZ again due to hx of EPS on invega sustenna. Will consider zydis to help with sleep and psychosis. 04/24: Will start propranolol 10 mg BID for depakote related tremor and lower depakote to 750 mg daily due to stated SE. Will start zydis 5 mg QHS and lower abilify to 5 mg BID as cross titration for sx of psychosis. 04/25: No medication changes, tremor improved 04/26: Decrease abilify to 5 mg daily to reduce polypharm, continue zydis trial Q15 min safety checks, CV Monitor response to medications. Monitor for safety in the milieu. Discharge on stabilization. Patient seen. Chart reviewed. Discussed with team. Obtain collateral contact info?as needed I spent minutes with the patient and/or on the patient floor today, [address]?50% of which was spent counseling/coordinating care. Patient educated on: medication risk/benefits and therapeutic strategies Reason for contiued inpatient stay Substantial Risk for: rapid decompensation and med/psych decompensation
[2022-04-26] MEDS: Acetaminophen 325 MG TABLET 650 MG PO (14:26)
[2022-04-26 22:40] VITALS: BP 132/74; PULSE 88; RESP 16; TEMP 36.2; O2SAT 96
[2022-04-26] MEDS: OLANZapine ODT 10 MG TAB.RAPDIS 5 MG TRANSLINGU (22:43)
[2022-04-26] MEDS: Divalproex Sodium ER 500 MG TAB.ER.24H PO (22:44)
[2022-04-27] MEDS: Acetaminophen 325 MG TABLET 650 MG PO ×3 (02:41→21:27)
[2022-04-27 08:29] VITALS: BP 126/79; PULSE 88; RESP 16; TEMP 36.3; O2SAT 100
[2022-04-27] MEDS: Levothyroxine Sodium 25 MCG TABLET PO (08:33)
[2022-04-27] MEDS: cephALEXin 500 MG CAPSULE PO ×4 (08:33→21:19)
[2022-04-27] MEDS: Omeprazole 40 MG CAPSULE.DR PO (08:34)
[2022-04-27] MEDS: Divalproex Sodium ER 250 MG TAB.ER.24H PO (08:34)
[2022-04-27] MEDS: Propranolol HCL 10 MG TABLET PO ×2 (08:35→21:19)
[2022-04-27] MEDS: polyethylene glycoL 3350 17 GM POWD.PACK PO ×2 (08:35→21:45)
[2022-04-27] MEDS: Cholecalciferol (Vitamin D3) 10 MCG TABLET PO (08:35)
[2022-04-27] MEDS: ARIPiprazole 5 MG TABLET PO (08:35)
--- NOTE | 2022-04-27 12:14 | HO.PSYCHPN ---
Subjective Subjective Date of Service: 04/27/22 Reason For Visit: psychosis Subjective Notes: Conditional Voluntary Interim History: Pt soft spoken. Pt reports she feels better than when she first came in as she feels less depressed, sleeping better. She reports feeling less anxious. She reports fair sleep. She reports she plans to return to her daughter's house once stable. No behavioral concerns. 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: c/o dizziness, denies headache GI: c/o Nausea, denies Vomiting, diarrhea, constipation or heartburn Constitutional: Reports no additional constitutional complaints, Denies chills, Denies fever(s) and Denies night sweats Eyes: Reports no additional eye complaints, Denies blurry vision, Denies change in vision, Denies diplopia, Denies eye discharge, Denies loss of vision and Denies eye pain Denies dizziness Cardiovascular: Reports no additional cardiovascular complaints, Denies chest pain, Denies lightheadedness, Denies Loss of Consciousness and Denies dyspnea Respiratory: Reports no additional respiratory complaints and Denies dyspnea Gastrointestinal: Reports no additional gastrointestinal complaints, Denies abdominal pain, Denies melena, Denies hematochezia, Denies change in bowel habits and Denies change in stool character Musculoskeletal: Reports no additional musculoskeletal complaints, Denies numbness and Denies tingling Denies dizziness, Denies loss of vision, Denies numbness and Denies tingling Psychiatric: Reports no additional psychiatric complaints, Reports depression and Reports suicidal ideation Endocrine: Reports no additional endocrine complaints Hematologic/Lymphatic: Reports no additional hematologic/lymphatic complaints Allergic/Immunologic: Reports no additional allergic/immunologic complaints Mental Status Exam Mental Status Exam Narrative: A&O. In casual attire, appears older than stated age. Good eye contact, attentive. No Tics or Tremors. No abnormal involuntary movements. Calm, however appears to be minimizing sx or has poor insight, guarded. Non-pressured speech, spontaneous with regular rate and rhythm, normal volume and prosody. No prolonged speech latency or dysarthria. Mood is ?depressed,? affect is constricted. Denies SI/SIB/HI upon inquiry. Endorses AH, denies VH. Has paranoid delusional thought content. Thoughts are concrete, linear. No known cognitive or memory impairment. Insight/ Judgment limited. Diagnostics Vital Signs (24Hr): Vital Signs - 24 hr 04/26/22 22:40 04/27/22 08:29 Temperature 97.2 F 97.4 F Pulse Rate 88 88 Respiratory Rate 16 16 Blood Pressure 132/74 126/79 Pulse Oximetry 96 100 Oxygen Delivery Method Room Air Room Air BMI result Body Mass Index 22.6 Labs Results: 04/23/22 09:40 04/24/22 09:16 Imaging Radiology Impressions: ITS Impressions KUB X-Ray 04/25/22 12:06 IMPRESSION: Nonobstructive bowel gas pattern. Mild to moderate colonic stool burden. Medications Medications Current Medications Acetaminophen (Acetaminophen 325 Mg Tablet) 650 mg PO Q6H PRN PRN Reason: Headache/Pain Mild Scale (1-3) Last Admin: 04/27/22 14:36 Dose: 650 mg Al Hydroxide/Mg Hydroxide (Magnesium Hydrox/Alum Hydrox 30 Ml Oral.Susp) 30 ml PO Q6H PRN PRN Reason: Heartburn/Nausea Aripiprazole (Aripiprazole 5 Mg Tablet) 5 mg PO DAILY [facility] Last Admin: 04/27/22 08:35 Dose: 5 mg Benzocaine (Throat Lozenge, Medicated Lozenge) 1 lozenge MUCOUS MEM Q2H PRN PRN Reason: Sore Throat Last Admin: 04/26/22 01:30 Dose: 1 lozenge Benztropine Mesylate (Benztropine Mesylate 0.5 Mg Tablet) 0.5 mg PO BID PRN PRN Reason: Extrapyramidal Effects/Symptoms Cephalexin HCl (Cephalexin 500 Mg Capsule) 500 mg PO QID [facility] Stop: 04/29/22 17:10 Last Admin: 04/27/22 13:46 Dose: 500 mg Divalproex Sodium (Divalproex Sodium Er 250 Mg Tab.Er.24h) 250 mg PO DAILY [facility] Last Admin: 04/27/22 08:34 Dose: 250 mg Divalproex Sodium (Divalproex Sodium Er 500 Mg Tab.Er.24h) 500 mg PO BEDTIME [facility] Last Admin: 04/26/22 22:44 Dose: 500 mg Guaifenesin/Dextromethorphan (Guaifenesin Dm 100/10/5 Ml 5 Ml Syrup) 5 ml PO Q6H PRN PRN Reason: cough Hydroxyzine HCl (Hydroxyzine Hcl 25 Mg Tablet) 25 mg PO Q6H PRN PRN Reason: Anxiety Levothyroxine Sodium (Levothyroxine Sodium 25 Mcg Tablet) 25 mcg PO DAILY@0600 [facility] Last Admin: 04/27/22 08:33 Dose: 25 mcg Magnesium Hydroxide (Milk Of Magnesia 30 Ml Oral.Susp) 30 ml PO DAILY PRN PRN Reason: Constipation Olanzapine (Olanzapine Odt 10 Mg Tab.Rapdis) 5 mg TRANSLINGU BEDTIME [facility] Last Admin: 04/26/22 22:43 Dose: 5 mg Omeprazole (Omeprazole 40 Mg Capsule.Dr) 40 mg PO DAILY@0630 [facility] Last Admin: 04/27/22 08:34 Dose: 40 mg Polyethylene Glycol (Polyethylene Glycol 3350 17 Gm Powd.Pack) 17 gm PO BID [facility] Last Admin: 04/27/22 08:35 Dose: 17 gm Propranolol HCl (Propranolol Hcl 10 Mg Tablet) 10 mg PO BID [facility]; Protocol Last Admin: 04/27/22 08:35 Dose: 10 mg Trazodone HCl (Trazodone Hcl 50 Mg Tablet) 50 mg PO BEDTIME PRN PRN Reason: Insomnia Vitamin D (Cholecalciferol (Vitamin D3) 10 Mcg Tablet) 10 mcg PO DAILY [facility] Last Admin: 04/27/22 08:35 Dose: 10 mcg Allergies Allergies Allergy/AdvReac Type Severity Reaction Status Date / Time No Known Allergies Allergy Verified 04/22/22 18:53 Assessment & Plan Assessment & Plan (1) Schizoaffective disorder, bipolar type: Status: Acute Code(s): F25.0 - Schizoaffective disorder, bipolar type Plan Martina is a 61 y.o. Female who carries a dx schizoaffective disorder, bipolar type. She presented to [facility] on 04/22/22 due to her daughter being concerned with her behavior i.e. has not slept x 2 weeks, packs her bags and tries to leave the house in the middle of the night, pouring bleach on meat due to believing there are worms in it. Pt recently discharged from [facility] in 03/2022 due to med non-adherence and decompensation. She has been med adherent since discharge, however daughter does not notice any change in behavior. Pt has hx of paranoid ideations, believing she has worms in her body, and AH. ? of dementia. Plan: Pt's daughter reports depakote is causing tremor, this was not observed but will consider tapering down due to questionable benefit VPA 92.3 on admission. Pt's abilify recently increased on 04/15/22 from 15 mg daily to 10 mg BID, unclear benefit. Pt has hx of med non-adherence but daughter does not want NÚÑEZ again due to hx of EPS on invega sustenna. Will consider zydis to help with sleep and psychosis. 04/24: Will start propranolol 10 mg BID for depakote related tremor and lower depakote to 750 mg daily due to stated SE. Will start zydis 5 mg QHS and lower abilify to 5 mg BID as cross titration for sx of psychosis. 04/25: No medication changes, tremor improved 04/26: Decrease abilify to 5 mg daily to reduce polypharm, continue zydis trial 04/27 continue current medications. I spent minutes with the patient and/or on the patient floor today, greater than?50% of which was spent counseling/coordinating care. Reason for contiued inpatient stay Substantial Risk for: inability to function
[2022-04-27 21:10] VITALS: BP 130/66; PULSE 90; RESP 16; TEMP 36.4; O2SAT 99
[2022-04-27] MEDS: Divalproex Sodium ER 500 MG TAB.ER.24H PO (21:19)
[2022-04-27] MEDS: OLANZapine ODT 10 MG TAB.RAPDIS 5 MG TRANSLINGU (21:19)
[2022-04-27] MEDS: Throat Lozenge, Medicated LOZENGE 1 LOZENGE MUCOUS MEM (21:27)
[2022-04-28 06:00] VITALS: BP 142/93; PULSE 89; RESP 18; TEMP 36.4; O2SAT 100
[2022-04-28] MEDS: Levothyroxine Sodium 25 MCG TABLET PO (06:36)
[2022-04-28] MEDS: Cholecalciferol (Vitamin D3) 10 MCG TABLET PO (09:44)
[2022-04-28] MEDS: Propranolol HCL 10 MG TABLET PO ×2 (09:44→21:36)
[2022-04-28] MEDS: cephALEXin 500 MG CAPSULE PO ×4 (09:44→21:35)
[2022-04-28] MEDS: polyethylene glycoL 3350 17 GM POWD.PACK PO ×2 (09:44→21:41)
[2022-04-28] MEDS: Divalproex Sodium ER 250 MG TAB.ER.24H PO (09:44)
[2022-04-28 09:51] VITALS: BP 132/71; PULSE 102; RESP 20; TEMP 36.6; O2SAT 100
[2022-04-28] MEDS: Throat Lozenge, Medicated LOZENGE 1 LOZENGE MUCOUS MEM ×2 (11:06→15:45)
[2022-04-28] MEDS: guaiFENesin DM 100/10/5 ML 5 ML SYRUP PO (11:06)
--- NOTE | 2022-04-28 12:08 | HO.PSYCHPN ---
Subjective Subjective Date of Service: 04/28/22 Reason For Visit: psychosis Subjective Notes: Conditional Voluntary Interim History: Pt reports sore throat but no other respiratory symptoms. She denies AH/VH but seen self dialoguing. Pt denies SI/HI. She reports she is feeling fine. Per daughter, pt continues to present as suspicious, guarded and paranoia reporting her daughter's house is infested with bugs. She is taking medications as prescribed. daughter reports pt appears increasingly more confused since started on depakote. 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 GI: c/o Nausea, denies Vomiting, diarrhea, constipation or heartburn Constitutional: Reports no additional constitutional complaints, Denies chills, Denies fever(s) and Denies night sweats Eyes: Reports no additional eye complaints, Denies blurry vision, Denies change in vision, Denies diplopia, Denies eye discharge, Denies loss of vision and Denies eye pain Denies dizziness Cardiovascular: Reports no additional cardiovascular complaints, Denies chest pain, Denies lightheadedness, Denies Loss of Consciousness and Denies dyspnea Respiratory: Reports no additional respiratory complaints and Denies dyspnea Gastrointestinal: Reports no additional gastrointestinal complaints, Denies abdominal pain, Denies melena, Denies hematochezia, Denies change in bowel habits and Denies change in stool character Musculoskeletal: Reports no additional musculoskeletal complaints, Denies numbness and Denies tingling Denies dizziness, Denies loss of vision, Denies numbness and Denies tingling Psychiatric: Reports no additional psychiatric complaints, Reports depression and Reports suicidal ideation Endocrine: Reports no additional endocrine complaints Hematologic/Lymphatic: Reports no additional hematologic/lymphatic complaints Allergic/Immunologic: Reports no additional allergic/immunologic complaints Mental Status Exam Mental Status Exam Narrative: A&O. In casual attire, appears older than stated age. Good eye contact, attentive. No Tics or Tremors. No abnormal involuntary movements. Calm, however appears to be minimizing sx or has poor insight, guarded. Non-pressured speech, spontaneous with regular rate and rhythm, normal volume and prosody. No prolonged speech latency or dysarthria. Mood is ?depressed,? affect is constricted. Denies SI/SIB/HI upon inquiry. Endorses AH, denies VH. Has paranoid delusional thought content. Thoughts are concrete, linear. No known cognitive or memory impairment. Insight/ Judgment limited. Diagnostics Vital Signs (24Hr): Vital Signs - 24 hr 04/29/22 20:18 Temperature 97.2 F Pulse Rate 107 H Respiratory Rate 16 Blood Pressure 128/87 Pulse Oximetry 99 Oxygen Delivery Method Room Air BMI result Body Mass Index 22.6 Labs Results: 04/23/22 09:40 04/24/22 09:16 Imaging Radiology Impressions: ITS Impressions [facility] X-Ray 04/25/22 12:06 IMPRESSION: Nonobstructive bowel gas pattern. Mild to moderate colonic stool burden. Medications Medications Current Medications Acetaminophen (Acetaminophen 325 Mg Tablet) 650 mg PO Q6H PRN PRN Reason: Headache/Pain Mild Scale (1-3) Last Admin: 04/28/22 15:45 Dose: 650 mg Al Hydroxide/Mg Hydroxide (Magnesium Hydrox/Alum Hydrox 30 Ml Oral.Susp) 30 ml PO Q6H PRN PRN Reason: Heartburn/Nausea Benzocaine (Throat Lozenge, Medicated Lozenge) 1 lozenge MUCOUS MEM Q2H PRN PRN Reason: Sore Throat Last Admin: 04/28/22 15:45 Dose: 1 lozenge Benztropine Mesylate (Benztropine Mesylate 0.5 Mg Tablet) 0.5 mg PO BID PRN PRN Reason: Extrapyramidal Effects/Symptoms Guaifenesin/Dextromethorphan (Guaifenesin Dm 100/10/5 Ml 5 Ml Syrup) 5 ml PO Q6H PRN PRN Reason: cough Last Admin: 04/28/22 11:06 Dose: 5 ml Hydroxyzine HCl (Hydroxyzine Hcl 25 Mg Tablet) 25 mg PO Q6H PRN PRN Reason: Anxiety Levothyroxine Sodium (Levothyroxine Sodium 25 Mcg Tablet) 25 mcg PO DAILY@0600 [facility] Last Admin: 04/29/22 06:33 Dose: 25 mcg Magnesium Hydroxide (Milk Of Magnesia 30 Ml Oral.Susp) 30 ml PO DAILY PRN PRN Reason: Constipation Olanzapine (Olanzapine Odt 10 Mg Tab.Rapdis) 10 mg TRANSLINGU BEDTIME [facility] Last Admin: 04/29/22 22:49 Dose: 10 mg Polyethylene Glycol (Polyethylene Glycol 3350 17 Gm Powd.Pack) 17 gm PO BID [facility] Last Admin: 04/29/22 22:49 Dose: 17 gm Trazodone HCl (Trazodone Hcl 50 Mg Tablet) 50 mg PO BEDTIME PRN PRN Reason: Insomnia Vitamin D (Cholecalciferol (Vitamin D3) 10 Mcg Tablet) 10 mcg PO DAILY [facility] Last Admin: 04/29/22 08:55 Dose: 10 mcg Allergies Allergies Allergy/AdvReac Type Severity Reaction Status Date / Time No Known Allergies Allergy Verified 04/22/22 18:53 Assessment & Plan Assessment & Plan (1) Schizoaffective disorder, bipolar type: Status: Acute Code(s): F25.0 - Schizoaffective disorder, bipolar type Plan Martina is a 61 y.o. Female who carries a dx schizoaffective disorder, bipolar type. She presented to [facility] [place] [place] [facility] on 04/22/22 due to her daughter being concerned with her behavior i.e. has not slept x 2 weeks, packs her bags and tries to leave the house in the middle of the night, pouring bleach on meat due to believing there are worms in it. Pt recently discharged from [facility] in 03/2022 due to med non-adherence and decompensation. She has been med adherent since discharge, however daughter does not notice any change in behavior. Pt has hx of paranoid ideations, believing she has worms in her body, and AH. ? of dementia. Plan: Pt's daughter reports depakote is causing tremor, this was not observed but will consider tapering down due to questionable benefit VPA 92.3 on admission. Pt's abilify recently increased on 04/15/22 from 15 mg daily to 10 mg BID, unclear benefit. Pt has hx of med non-adherence but daughter does not want NÚÑEZ again due to hx of EPS on invega sustenna. Will consider zydis to help with sleep and psychosis. 04/24: Will start propranolol 10 mg BID for depakote related tremor and lower depakote to 750 mg daily due to stated SE. Will start zydis 5 mg QHS and lower abilify to 5 mg BID as cross titration for sx of psychosis. 04/25: No medication changes, tremor improved 04/26: Decrease abilify to 5 mg daily to reduce polypharm, continue zydis trial 04/27 continue current medications. 04/28 increase olanzapine to 10mg po qhs. d/c depakote. I spent minutes with the patient and/or on the patient floor today, greater than?50% of which was spent counseling/coordinating care. Reason for contiued inpatient stay Substantial Risk for: inability to function
[2022-04-28] MEDS: Acetaminophen 325 MG TABLET 650 MG PO (15:45)
[2022-04-28] MEDS: OLANZapine ODT 10 MG TAB.RAPDIS 5 MG TRANSLINGU (21:35)
[2022-04-28] MEDS: Divalproex Sodium ER 500 MG TAB.ER.24H PO (21:36)
[2022-04-28 21:39] VITALS: BP 124/76; PULSE 80; TEMP 36.6; O2SAT 98
[2022-04-29] MEDS: Levothyroxine Sodium 25 MCG TABLET PO (06:33)
[2022-04-29 08:54] VITALS: BP 125/79; PULSE 80; RESP 16; TEMP 36.6; O2SAT 98
[2022-04-29] MEDS: Cholecalciferol (Vitamin D3) 10 MCG TABLET PO (08:55)
[2022-04-29] MEDS: Propranolol HCL 10 MG TABLET PO (08:55)
[2022-04-29] MEDS: cephALEXin 500 MG CAPSULE PO ×3 (08:55→18:25)
[2022-04-29] MEDS: Divalproex Sodium ER 250 MG TAB.ER.24H PO (08:55)
[2022-04-29] MEDS: polyethylene glycoL 3350 17 GM POWD.PACK PO ×2 (08:57→22:49)
--- NOTE | 2022-04-29 09:10 | HO.PSYCHPN ---
Subjective Subjective Date of Service: 04/29/22 Reason For Visit: psychosis Subjective Notes: Conditional Voluntary Interim History: Pt denies SI/IH. She continues to denied AH/VH but continues to be seen self dialoguing. She continues to report some suspiciousness towards staff. She is taking medications as prescribed. No behavioral concerns. 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 GI: c/o Nausea, denies Vomiting, diarrhea, constipation or heartburn Constitutional: Reports no additional constitutional complaints, Denies chills, Denies fever(s) and Denies night sweats Eyes: Reports no additional eye complaints, Denies blurry vision, Denies change in vision, Denies diplopia, Denies eye discharge, Denies loss of vision and Denies eye pain Denies dizziness Cardiovascular: Reports no additional cardiovascular complaints, Denies chest pain, Denies lightheadedness, Denies Loss of Consciousness and Denies dyspnea Respiratory: Reports no additional respiratory complaints and Denies dyspnea Gastrointestinal: Reports no additional gastrointestinal complaints, Denies abdominal pain, Denies melena, Denies hematochezia, Denies change in bowel habits and Denies change in stool character Musculoskeletal: Reports no additional musculoskeletal complaints, Denies numbness and Denies tingling Denies dizziness, Denies loss of vision, Denies numbness and Denies tingling Psychiatric: Reports no additional psychiatric complaints, Reports depression and Reports suicidal ideation Endocrine: Reports no additional endocrine complaints Hematologic/Lymphatic: Reports no additional hematologic/lymphatic complaints Allergic/Immunologic: Reports no additional allergic/immunologic complaints Mental Status Exam Mental Status Exam Narrative: A&O. In casual attire, appears older than stated age. Good eye contact, attentive. No Tics or Tremors. No abnormal involuntary movements. Calm, however appears to be minimizing sx or has poor insight, guarded. Non-pressured speech, spontaneous with regular rate and rhythm, normal volume and prosody. No prolonged speech latency or dysarthria. Mood is ?depressed,? affect is constricted. Denies SI/SIB/HI upon inquiry. Endorses AH, denies VH. Has paranoid delusional thought content. Thoughts are concrete, linear. No known cognitive or memory impairment. Insight/ Judgment limited. Diagnostics Vital Signs (24Hr): Vital Signs - 24 hr 04/29/22 20:18 Temperature 97.2 F Pulse Rate 107 H Respiratory Rate 16 Blood Pressure 128/87 Pulse Oximetry 99 Oxygen Delivery Method Room Air BMI result Body Mass Index 22.6 Labs Results: 04/23/22 09:40 04/24/22 09:16 Imaging Radiology Impressions: ITS Impressions KUB X-Ray 04/25/22 12:06 IMPRESSION: Nonobstructive bowel gas pattern. Mild to moderate colonic stool burden. Medications Medications Current Medications Acetaminophen (Acetaminophen 325 Mg Tablet) 650 mg PO Q6H PRN PRN Reason: Headache/Pain Mild Scale (1-3) Last Admin: 04/28/22 15:45 Dose: 650 mg Al Hydroxide/Mg Hydroxide (Magnesium Hydrox/Alum Hydrox 30 Ml Oral.Susp) 30 ml PO Q6H PRN PRN Reason: Heartburn/Nausea Benzocaine (Throat Lozenge, Medicated Lozenge) 1 lozenge MUCOUS MEM Q2H PRN PRN Reason: Sore Throat Last Admin: 04/28/22 15:45 Dose: 1 lozenge Benztropine Mesylate (Benztropine Mesylate 0.5 Mg Tablet) 0.5 mg PO BID PRN PRN Reason: Extrapyramidal Effects/Symptoms Guaifenesin/Dextromethorphan (Guaifenesin Dm 100/10/5 Ml 5 Ml Syrup) 5 ml PO Q6H PRN PRN Reason: cough Last Admin: 04/28/22 11:06 Dose: 5 ml Hydroxyzine HCl (Hydroxyzine Hcl 25 Mg Tablet) 25 mg PO Q6H PRN PRN Reason: Anxiety Levothyroxine Sodium (Levothyroxine Sodium 25 Mcg Tablet) 25 mcg PO DAILY@0600 [facility] Last Admin: 04/29/22 06:33 Dose: 25 mcg Magnesium Hydroxide (Milk Of Magnesia 30 Ml Oral.Susp) 30 ml PO DAILY PRN PRN Reason: Constipation Olanzapine (Olanzapine Odt 10 Mg Tab.Rapdis) 10 mg TRANSLINGU BEDTIME [facility] Last Admin: 04/29/22 22:49 Dose: 10 mg Polyethylene Glycol (Polyethylene Glycol 3350 17 Gm Powd.Pack) 17 gm PO BID [facility] Last Admin: 04/29/22 22:49 Dose: 17 gm Trazodone HCl (Trazodone Hcl 50 Mg Tablet) 50 mg PO BEDTIME PRN PRN Reason: Insomnia Vitamin D (Cholecalciferol (Vitamin D3) 10 Mcg Tablet) 10 mcg PO DAILY [facility] Last Admin: 04/29/22 08:55 Dose: 10 mcg Allergies Allergies Allergy/AdvReac Type Severity Reaction Status Date / Time No Known Allergies Allergy Verified 04/22/22 18:53 Assessment & Plan Assessment & Plan (1) Schizoaffective disorder, bipolar type: Status: Acute Code(s): F25.0 - Schizoaffective disorder, bipolar type Plan Martina is a 61 y.o. Female who carries a dx schizoaffective disorder, bipolar type. She presented to [facility] [place] [facility] on 04/22/22 due to her daughter being concerned with her behavior i.e. has not slept x 2 weeks, packs her bags and tries to leave the house in the middle of the night, pouring bleach on meat due to believing there are worms in it. Pt recently discharged from [facility] in 03/2022 due to med non-adherence and decompensation. She has been med adherent since discharge, however daughter does not notice any change in behavior. Pt has hx of paranoid ideations, believing she has worms in her body, and AH. ? of dementia. Plan: Pt's daughter reports depakote is causing tremor, this was not observed but will consider tapering down due to questionable benefit VPA 92.3 on admission. Pt's abilify recently increased on 04/15/22 from 15 mg daily to 10 mg BID, unclear benefit. Pt has hx of med non-adherence but daughter does not want NÚÑEZ again due to hx of EPS on invega sustenna. Will consider zydis to help with sleep and psychosis. 04/24: Will start propranolol 10 mg BID for depakote related tremor and lower depakote to 750 mg daily due to stated SE. Will start zydis 5 mg QHS and lower abilify to 5 mg BID as cross titration for sx of psychosis. 04/25: No medication changes, tremor improved 04/26: Decrease abilify to 5 mg daily to reduce polypharm, continue zydis trial 04/27 continue current medications. 04/28 increase olanzapine to 10mg po qhs. d/c depakote. 04/29 continue olanzapine 10mg po qhs. I spent minutes with the patient and/or on the patient floor today, greater than?50% of which was spent counseling/coordinating care. Reason for contiued inpatient stay Substantial Risk for: inability to function
[2022-04-29 20:18] VITALS: BP 128/87; PULSE 107; RESP 16; TEMP 36.2; O2SAT 99
[2022-04-29] MEDS: OLANZapine ODT 10 MG TAB.RAPDIS TRANSLINGU (22:49)
[2022-04-30 06:00] VITALS: BP 125/71; PULSE 101; RESP 16; TEMP 36.3; O2SAT 98
[2022-04-30] MEDS: Levothyroxine Sodium 25 MCG TABLET PO (06:46)
[2022-04-30 07:00] VITALS: BMI 22.4
[2022-04-30] MEDS: Cholecalciferol (Vitamin D3) 10 MCG TABLET PO (09:58)
[2022-04-30] MEDS: polyethylene glycoL 3350 17 GM POWD.PACK PO (09:58)
--- NOTE | 2022-04-30 12:23 | P.PNPSI_ITS ---
Subjective Subjective Date of Service: 04/30/22 Reason For Visit: psychosis Subjective Notes: Conditional Voluntary Interim History: Pt reports sleeping well. She reports feeling depressed. She continues to be seen self dialoging. She denies SI/HI. She denies AH when asked but appears internally preoccupied. She is usually pacing moreno. Some interactions with peer s. No behavioral concerns. 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, denies headache GI: c/o Nausea, denies Vomiting, diarrhea, constipation or heartburn Constitutional: Reports no additional constitutional complaints, Denies chills, Denies fever(s) and Denies night sweats Eyes: Reports no additional eye complaints, Denies blurry vision, Denies change in vision, Denies diplopia, Denies eye discharge, Denies loss of vision and Denies eye pain Denies dizziness Cardiovascular: Reports no additional cardiovascular complaints, Denies chest pain, Denies lightheadedness, Denies Loss of Consciousness and Denies dyspnea Respiratory: Reports no additional respiratory complaints and Denies dyspnea Gastrointestinal: Reports no additional gastrointestinal complaints, Denies abdominal pain, Denies melena, Denies hematochezia, Denies change in bowel habits and Denies change in stool character Musculoskeletal: Reports no additional musculoskeletal complaints, Denies numbness and Denies tingling Denies dizziness, Denies loss of vision, Denies numbness and Denies tingling Psychiatric: Reports no additional psychiatric complaints, Reports depression and Reports suicidal ideation Endocrine: Reports no additional endocrine complaints Hematologic/Lymphatic: Reports no additional hematologic/lymphatic complaints Allergic/Immunologic: Reports no additional allergic/immunologic complaints Mental Status Exam Mental Status Exam Narrative: A&O. In casual attire, appears older than stated age. Good eye contact, attentive. No Tics or Tremors. No abnormal involuntary movements. Calm, however appears to be minimizing sx or has poor insight, guarded. Non-pressured speech, spontaneous with regular rate and rhythm, normal volume and prosody. No prolonged speech latency or dysarthria. Mood is ?depressed,? affect is constricted. Denies SI/SIB/HI upon inquiry. Endorses AH, denies VH. Has paranoid delusional thought content. Thoughts are concrete, linear. No known cognitive or memory impairment. Insight/ Judgment limited. Diagnostics Vital Signs (24Hr): Vital Signs - 24 hr 05/01/22 10:18 05/01/22 20:45 Temperature 97.3 F 97.1 F Pulse Rate 114 H 98 Respiratory Rate 16 18 Blood Pressure 120/75 90/66 Pulse Oximetry 95 99 Oxygen Delivery Method Room Air Room Air BMI result Body Mass Index 22.4 Labs Results: 04/23/22 09:40 04/24/22 09:16 Imaging Radiology Impressions: ITS Impressions KUB X-Ray 04/25/22 12:06 IMPRESSION: Nonobstructive bowel gas pattern. Mild to moderate colonic stool burden. Medications Medications Current Medications Acetaminophen (Acetaminophen 325 Mg Tablet) 650 mg PO Q6H PRN PRN Reason: Headache/Pain Mild Scale (1-3) Last Admin: 04/30/22 22:30 Dose: 650 mg Al Hydroxide/Mg Hydroxide (Magnesium Hydrox/Alum Hydrox 30 Ml Oral.Susp) 30 ml PO Q6H PRN PRN Reason: Heartburn/Nausea Benzocaine (Throat Lozenge, Medicated Lozenge) 1 lozenge MUCOUS MEM Q2H PRN PRN Reason: Sore Throat Last Admin: 04/28/22 15:45 Dose: 1 lozenge Benztropine Mesylate (Benztropine Mesylate 0.5 Mg Tablet) 0.5 mg PO BID PRN PRN Reason: Extrapyramidal Effects/Symptoms Hydroxyzine HCl (Hydroxyzine Hcl 25 Mg Tablet) 25 mg PO Q6H PRN PRN Reason: Anxiety Levothyroxine Sodium (Levothyroxine Sodium 25 Mcg Tablet) 25 mcg PO DAILY@0600 [facility] Last Admin: 05/02/22 05:46 Dose: 25 mcg [place] Carbonate ([place] Carbonate 300 Mg Capsule) 300 mg PO BID [facility] Magnesium Hydroxide (Milk Of Magnesia 30 Ml Oral.Susp) 30 ml PO DAILY PRN PRN Reason: Constipation Olanzapine (Olanzapine Odt 10 Mg Tab.Rapdis) 15 mg TRANSLINGU BEDTIME [facility] Polyethylene Glycol (Polyethylene Glycol 3350 17 Gm Powd.Pack) 17 gm PO BID [facility] Last Admin: 05/01/22 21:02 Dose: 17 gm Trazodone HCl (Trazodone Hcl 50 Mg Tablet) 50 mg PO BEDTIME PRN PRN Reason: Insomnia Vitamin D (Cholecalciferol (Vitamin D3) 10 Mcg Tablet) 10 mcg PO DAILY [facility] Last Admin: 05/01/22 09:54 Dose: 10 mcg Allergies Allergies Allergy/AdvReac Type Severity Reaction Status Date / Time No Known Allergies Allergy Verified 04/22/22 18:53 Assessment & Plan Assessment & Plan (1) Schizoaffective disorder, bipolar type: Status: Acute Code(s): F25.0 - Schizoaffective disorder, bipolar type Plan Martina is a 61 y.o. Female who carries a dx schizoaffective disorder, bipolar type. She presented to [facility] on 04/22/22 due to her daughter being concerned with her behavior i.e. has not slept x 2 weeks, packs her bags and tries to leave the house in the middle of the night, pouring bleach on meat due to believing there are worms in it. Pt recently discharged from [facility] in 03/2022 due to med non-adherence and decompensation. She has been med adherent since discharge, however daughter does not notice any change in behavior. Pt has hx of paranoid ideations, believing she has worms in her body, and AH. ? of dementia. Plan: Pt's daughter reports depakote is causing tremor, this was not observed but will consider tapering down due to questionable benefit VPA 92.3 on admission. Pt's abilify recently increased on 04/15/22 from 15 mg daily to 10 mg BID, unclear benefit. Pt has hx of med non-adherence but daughter does not want NÚÑEZ again due to hx of EPS on invega sustenna. Will consider zydis to help with sleep and psychosis. 04/24: Will start propranolol 10 mg BID for depakote related tremor and lower d epakote to 750 mg daily due to stated SE. Will start zydis 5 mg QHS and lower abilify to 5 mg BID as cross titration for sx of psychosis. 04/25: No medication changes, tremor improved 04/26: Decrease abilify to 5 mg daily to reduce polypharm, continue zydis trial 04/27 continue current medications. 04/28 increase olanzapine to 10mg po qhs. d/c depakote. 04/29 continue olanzapine 10mg po qhs. 04/30 continue current medications. I spent minutes with the patient and/or on the patient floor today, greater than?50% of which was spent counseling/coordinating care. Reason for contiued inpatient stay Substantial Risk for: inability to function
[2022-04-30 18:00] VITALS: BP 128/76; PULSE 105; RESP 16; TEMP 36.1; O2SAT 98
[2022-04-30] MEDS: OLANZapine ODT 10 MG TAB.RAPDIS TRANSLINGU (22:28)
[2022-04-30] MEDS: Acetaminophen 325 MG TABLET 650 MG PO (22:30)
[2022-05-01] MEDS: Levothyroxine Sodium 25 MCG TABLET PO (09:54)
[2022-05-01] MEDS: Cholecalciferol (Vitamin D3) 10 MCG TABLET PO (09:54)
[2022-05-01] MEDS: polyethylene glycoL 3350 17 GM POWD.PACK PO ×2 (09:56→21:02)
[2022-05-01 10:18] VITALS: BP 120/75; PULSE 114; RESP 16; TEMP 36.3; O2SAT 95
--- NOTE | 2022-05-01 11:25 | HO.PSYCHPN ---
Subjective Subjective Date of Service: 05/01/22 Reason For Visit: psychosis Subjective Notes: Conditional Voluntary Interim History: Pt reports sleeping well. She continues to reports feeling depressed, appears with some suspiciousness and paranoia. She continues to be seen self dialoging. She denies SI/HI. She denies AH when asked but appears internally preoccupied. She is usually pacing moreno. Some interactions with peers. No behavioral concerns. we discussed increasing olanzapine, and adding lithium for mood. 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 headache GI: c/o Nausea, denies Vomiting, diarrhea, constipation or heartburn Constitutional: Reports no additional constitutional complaints, Denies chills, Denies fever(s) and Denies night sweats Eyes: Reports no additional eye complaints, Denies blurry vision, Denies change in vision, Denies diplopia, Denies eye discharge, Denies loss of vision and Denies eye pain Denies dizziness Cardiovascular: Reports no additional cardiovascular complaints, Denies chest pain, Denies lightheadedness, Denies Loss of Consciousness and Denies dyspnea Respiratory: Reports no additional respiratory complaints and Denies dyspnea Gastrointestinal: Reports no additional gastrointestinal complaints, Denies abdominal pain, Denies melena, Denies hematochezia, Denies change in bowel habits and Denies change in stool character Musculoskeletal: Reports no additional musculoskeletal complaints, Denies numbness and Denies tingling Denies dizziness, Denies loss of vision, Denies numbness and Denies tingling Psychiatric: Reports no additional psychiatric complaints, Reports depression and Reports suicidal ideation Endocrine: Reports no additional endocrine complaints Hematologic/Lymphatic: Reports no additional hematologic/lymphatic complaints Allergic/Immunologic: Reports no additional allergic/immunologic complaints Mental Status Exam Mental Status Exam Narrative: A&O. In casual attire, appears older than stated age. Good eye contact, attentive. No Tics or Tremors. No abnormal involuntary movements. Calm, however appears to be minimizing sx or has poor insight, guarded. Non-pressured speech, spontaneous with regular rate and rhythm, normal volume and prosody. No prolonged speech latency or dysarthria. Mood is ?depressed,? affect is constricted. Denies SI/SIB/HI upon inquiry. Endorses AH, denies VH. Has paranoid delusional thought content. Thoughts are concrete, linear. No known cognitive or memory impairment. Insight/ Judgment limited. Diagnostics Vital Signs (24Hr): Vital Signs - 24 hr 05/01/22 10:18 05/01/22 20:45 Temperature 97.3 F 97.1 F Pulse Rate 114 H 98 Respiratory Rate 16 18 Blood Pressure 120/75 90/66 Pulse Oximetry 95 99 Oxygen Delivery Method Room Air Room Air BMI result Body Mass Index 22.4 Labs Results: 04/23/22 09:40 04/24/22 09:16 Imaging Radiology Impressions: ITS Impressions KUB X-Ray 04/25/22 12:06 IMPRESSION: Nonobstructive bowel gas pattern. Mild to moderate colonic stool burden. Medications Medications Current Medications Acetaminophen (Acetaminophen 325 Mg Tablet) 650 mg PO Q6H PRN PRN Reason: Headache/Pain Mild Scale (1-3) Last Admin: 04/30/22 22:30 Dose: 650 mg Al Hydroxide/Mg Hydroxide (Magnesium Hydrox/Alum Hydrox 30 Ml Oral.Susp) 30 ml PO Q6H PRN PRN Reason: Heartburn/Nausea Benzocaine (Throat Lozenge, Medicated Lozenge) 1 lozenge MUCOUS MEM Q2H PRN PRN Reason: Sore Throat Last Admin: 04/28/22 15:45 Dose: 1 lozenge Benztropine Mesylate (Benztropine Mesylate 0.5 Mg Tablet) 0.5 mg PO BID PRN PRN Reason: Extrapyramidal Effects/Symptoms Hydroxyzine HCl (Hydroxyzine Hcl 25 Mg Tablet) 25 mg PO Q6H PRN PRN Reason: Anxiety Levothyroxine Sodium (Levothyroxine Sodium 25 Mcg Tablet) 25 mcg PO DAILY@0600 [facility]PLACED [facility] Last Admin: 05/02/22 05:46 Dose: 25 mcg [place] Carbonate ([place] Carbonate 300 Mg Capsule) 300 mg PO BID [facility] Magnesium Hydroxide (Milk Of Magnesia 30 Ml Oral.Susp) 30 ml PO DAILY PRN PRN Reason: Constipation Olanzapine (Olanzapine Odt 10 Mg Tab.Rapdis) 15 mg TRANSLINGU BEDTIME REPLACED BY [facility] Polyethylene Glycol (Polyethylene Glycol 3350 17 Gm Powd.Pack) 17 gm PO BID [facility] Last Admin: 05/01/22 21:02 Dose: 17 gm Trazodone HCl (Trazodone Hcl 50 Mg Tablet) 50 mg PO BEDTIME PRN PRN Reason: Insomnia Vitamin D (Cholecalciferol (Vitamin D3) 10 Mcg Tablet) 10 mcg PO DAILY [facility] Last Admin: 05/01/22 09:54 Dose: 10 mcg Allergies Allergies Allergy/AdvReac Type Severity Reaction Status Date / Time No Known Allergies Allergy Verified 04/22/22 18:53 Assessment & Plan Assessment & Plan (1) Schizoaffective disorder, bipolar type: Status: Acute Code(s): F25.0 - Schizoaffective disorder, bipolar type Plan Martina is a 61 y.o. Female who carries a dx schizoaffective disorder, bipolar type. She presented to [facility] on 04/22/22 due to her daughter being concerned with her behavior i.e. has not slept x 2 weeks, packs her bags and tries to leave the house in the middle of the night, pouring bleach on meat due to believing there are worms in it. Pt recently discharged from [facility] in 03/2022 due to med non-adherence and decompensation. She has been med adherent since discharge, however daughter does not notice any change in behavior. Pt has hx of paranoid ideations, believing she has worms in her body, and AH. ? of dementia. Plan: Pt's daughter reports depakote is causing tremor, this was not observed but will consider tapering down due to questionable benefit VPA 92.3 on admission. Pt's abilify recently increased on 04/15/22 from 15 mg daily to 10 mg BID, unclear benefit. Pt has hx of med non-adherence but daughter does not want NÚÑEZ again due to hx of EPS on invega sustenna. Will consider zydis to help with sleep and psychosis. 04/24: Will start propranolol 10 mg BID for depakote related tremor and lower depakote to 750 mg daily due to stated SE. Will start zydis 5 mg QHS and lower abilify to 5 mg BID as cross titration for sx of psychosis. 04/25: No medication changes, tremor improved 04/26: Decrease abilify to 5 mg daily to reduce polypharm, continue zydis trial 04/27 continue current medications. 04/28 increase olanzapine to 10mg po qhs. d/c depakote. 04/29 continue olanzapine 10mg po qhs. 04/30 continue current medications. 05/01 increase olanzapine to 15 mg qhs. start lithium 300mg po bid. I spent minutes with the patient and/or on the patient floor today, greater than?50% of which was spent counseling/coordinating care. Reason for contiued inpatient stay Substantial Risk for: inability to function
[2022-05-01 20:45] VITALS: BP 90/66; PULSE 98; RESP 18; TEMP 36.2; O2SAT 99
[2022-05-01] MEDS: OLANZapine ODT 10 MG TAB.RAPDIS TRANSLINGU (21:02)
[2022-05-02] MEDS: Levothyroxine Sodium 25 MCG TABLET PO (05:46)
[2022-05-02] MEDS: polyethylene glycoL 3350 17 GM POWD.PACK PO (09:06)
[2022-05-02] MEDS: Lithium Carbonate 300 MG CAPSULE PO ×2 (09:06→20:32)
[2022-05-02] MEDS: Cholecalciferol (Vitamin D3) 10 MCG TABLET PO (09:06)
--- NOTE | 2022-05-02 09:59 | P.PNPSI_ITS ---
Subjective Subjective Date of Service: 05/02/22 Reason For Visit: psychosis Subjective Notes: Conditional Voluntary Healthcare Proxy: No Guardianship: No Medical Problems Affecting Mental Status: No Interim History: Patient was seen and discussed in rounds today. Records and plans were revie wed. She continues to be pacing, appears to be responding to internal stimuli. No groups or attended. She is safe on the unit. Some anxiety and depression persisting. No suicidal ideations. She would like her MiraLax decreased to once a day which I will do. Eating and sleeping adequately. No changes were made today other than the MiraLax Medication Compliance: Yes Side effects from medications: No Attending Groups: No Review of Systems Review of Systems Yes all other systems are reviewed and are negative Mental Status Exam Mental Status Exam Narrative: In today's visit she is alert, oriented and pleasant. Normal speech. Little eye contact. Affect is appropriate and constricted. Reports auditory hallucinations. No overt delusions. Some paranoia reported. No SI. Cognitively she has slow thought processes. Judgment is intact Diagnostics Vital Signs (24Hr): Vital Signs - 24 hr 05/01/22 10:18 05/01/22 20:45 Temperature 97.3 F 97.1 F Pulse Rate 114 H 98 Respiratory Rate 16 18 Blood Pressure 120/75 90/66 Pulse Oximetry 95 99 Oxygen Delivery Method Room Air Room Air BMI result Body Mass Index 22.4 Labs Results: 04/23/22 09:40 04/24/22 09:16 Imaging Radiology Impressions: ITS Impressions KUB X-Ray 04/25/22 12:06 IMPRESSION: Nonobstructive bowel gas pattern. Mild to moderate colonic stool burden. Medications Medications Current Medications Acetaminophen (Acetaminophen 325 Mg Tablet) 650 mg PO Q6H PRN PRN Reason: Headache/Pain Mild Scale (1-3) Last Admin: 04/30/22 22:30 Dose: 650 mg Al Hydroxide/Mg Hydroxide (Magnesium Hydrox/Alum Hydrox 30 Ml Oral.Susp) 30 ml PO Q6H PRN PRN Reason: Heartburn/Nausea Benzocaine (Throat Lozenge, Medicated Lozenge) 1 lozenge MUCOUS MEM Q2H PRN PRN Reason: Sore Throat Last Admin: 04/28/22 15:45 Dose: 1 lozenge Benztropine Mesylate (Benztropine Mesylate 0.5 Mg Tablet) 0.5 mg PO BID PRN PRN Reason: Extrapyramidal Effects/Symptoms Hydroxyzine HCl (Hydroxyzine Hcl 25 Mg Tablet) 25 mg PO Q6H PRN PRN Reason: Anxiety Levothyroxine Sodium (Levothyroxine Sodium 25 Mcg Tablet) 25 mcg PO DAILY@0600 [facility] Last Admin: 05/02/22 05:46 Dose: 25 mcg [place] Carbonate ([place] Carbonate 300 Mg Capsule) 300 mg PO BID [facility] Last Admin: 05/02/22 09:06 Dose: 300 mg Magnesium Hydroxide (Milk Of Magnesia 30 Ml Oral.Susp) 30 ml PO DAILY PRN PRN Reason: Constipation Olanzapine (Olanzapine Odt 10 Mg Tab.Rapdis) 15 mg TRANSLINGU BEDTIME [facility] Polyethylene Glycol (Polyethylene Glycol 3350 17 Gm Powd.Pack) 17 gm PO BID [facility] Last Admin: 05/02/22 09:06 Dose: 17 gm Trazodone HCl (Trazodone Hcl 50 Mg Tablet) 50 mg PO BEDTIME PRN PRN Reason: Insomnia Vitamin D (Cholecalciferol (Vitamin D3) 10 Mcg Tablet) 10 mcg PO DAILY [facility] Last Admin: 05/02/22 09:06 Dose: 10 mcg Allergies Allergies Allergy/AdvReac Type Severity Reaction Status Date / Time No Known Allergies Allergy Verified 04/22/22 18:53 Assessment & Plan Assessment & Plan (1) Schizoaffective disorder, bipolar type: Status: Acute Code(s): F25.0 - Schizoaffective disorder, bipolar type Plan Martina is a 61 y.o. Female who carries a dx schizoaffective disorder, bipolar type. She presented to [facility] on 04/22/22 due to her daughter being concerned with her behavior i.e. has not slept x 2 weeks, packs her bags and tries to leave the house in the middle of the night, pouring bleach on meat due to believing there are worms in it. Pt recently discharged from [facility] in 03/2022 due to med non-adherence and decompensation. She has been med adherent since discharge, however daughter does not notice any change in behavior. Pt has hx of paranoid ideations, believing she has worms in her body, and AH. ? of dementia. Plan: Pt's daughter reports depakote is causing tremor, this was not observed but will consider tapering down due to questionable benefit VPA 92.3 on admission. Pt's abilify recently increased on 04/15/22 from 15 mg daily to 10 mg BID, unclear benefit. Pt has hx of med non-adherence but daughter does not want NÚÑEZ again due to hx of EPS on invega sustenna. Will consider zydis to help with sleep and psychosis. 04/24: Will start propranolol 10 mg BID for depakote related tremor and lower depakote to 750 mg daily due to stated SE. Will start zydis 5 mg QHS and lower abilify to 5 mg BID as cross titration for sx of psychosis. 04/25: No medication changes, tremor improved 04/26: Decrease abilify to 5 mg daily to reduce polypharm, continue zydis trial 04/27 continue current medications. 04/28 increase olanzapine to 10mg po qhs. d/c depakote. 04/29 continue olanzapine 10mg po qhs. 04/30 continue current medications. 05/01 increase olanzapine to 15 mg qhs. start lithium 300mg po bid. 05/02 continue current regimen and plans I spent minutes with the patient and/or on the patient floor today, greater than?50% of which was spent counseling/coordinating care. Patient educated on: medication risk/benefits Reason for contiued inpatient stay Substantial Risk for: med/psych decompensation
[2022-05-02 10:31] VITALS: BP 121/77; PULSE 90; RESP 16; TEMP 36; O2SAT 99
[2022-05-02 20:25] VITALS: BP 100/64; PULSE 92; RESP 16; TEMP 36.6; O2SAT 97
[2022-05-02] MEDS: OLANZapine ODT 10 MG TAB.RAPDIS 15 MG TRANSLINGU (20:32)
[2022-05-03] MEDS: Levothyroxine Sodium 25 MCG TABLET PO (05:54)
[2022-05-03] MEDS: polyethylene glycoL 3350 17 GM POWD.PACK PO (08:21)
[2022-05-03] MEDS: Cholecalciferol (Vitamin D3) 10 MCG TABLET PO (08:21)
[2022-05-03] MEDS: Lithium Carbonate 300 MG CAPSULE PO ×2 (08:21→21:10)
--- NOTE | 2022-05-03 08:22 | P.PNPSI_ITS ---
Subjective Subjective Date of Service: 05/03/22 Reason For Visit: psychosis Subjective Notes: Conditional Voluntary Healthcare Proxy: No Guardianship: No Medical Problems Affecting Mental Status: No Interim History: Patient was seen and discussed in rounds today. Records and plans were revie wed. She is doing a little better and has more social interactions but mostly isolative. Pacing a lot. Eating and sleeping adequately. No complaints or side effects. She is medication compliant. No SI. No changes were made today Medication Compliance: Yes Side effects from medications: No Attending Groups: No Diagnostics Vital Signs (24Hr): Vital Signs - 24 hr 05/02/22 10:31 05/02/22 20:25 Temperature 96.8 F 97.9 F Pulse Rate 90 92 Respiratory Rate 16 16 Blood Pressure 121/77 100/64 Pulse Oximetry 99 97 Oxygen Delivery Method Room Air Room Air BMI result Body Mass Index 22.4 Labs Results: 04/23/22 09:40 04/24/22 09:16 Imaging Radiology Impressions: ITS Impressions KUB X-Ray 04/25/22 12:06 IMPRESSION: Nonobstructive bowel gas pattern. Mild to moderate colonic stool burden. Medications Medications Current Medications Acetaminophen (Acetaminophen 325 Mg Tablet) 650 mg PO Q6H PRN PRN Reason: Headache/Pain Mild Scale (1-3) Last Admin: 04/30/22 22:30 Dose: 650 mg Al Hydroxide/Mg Hydroxide (Magnesium Hydrox/Alum Hydrox 30 Ml Oral.Susp) 30 ml PO Q6H PRN PRN Reason: Heartburn/Nausea Benzocaine (Throat Lozenge, Medicated Lozenge) 1 lozenge MUCOUS MEM Q2H PRN PRN Reason: Sore Throat Last Admin: 04/28/22 15:45 Dose: 1 lozenge Benztropine Mesylate (Benztropine Mesylate 0.5 Mg Tablet) 0.5 mg PO BID PRN PRN Reason: Extrapyramidal Effects/Symptoms Hydroxyzine HCl (Hydroxyzine Hcl 25 Mg Tablet) 25 mg PO Q6H PRN PRN Reason: Anxiety Levothyroxine Sodium (Levothyroxine Sodium 25 Mcg Tablet) 25 mcg PO DAILY@0600 [facility] Last Admin: 05/03/22 05:54 Dose: 25 mcg [place] Carbonate ([place] Carbonate 300 Mg Capsule) 300 mg PO BID [facility] Last Admin: 05/02/22 20:32 Dose: 300 mg Magnesium Hydroxide (Milk Of Magnesia 30 Ml Oral.Susp) 30 ml PO DAILY PRN PRN Reason: Constipation Olanzapine (Olanzapine Odt 10 Mg Tab.Rapdis) 15 mg TRANSLINGU BEDTIME [facility] Last Admin: 05/02/22 20:32 Dose: 15 mg Polyethylene Glycol (Polyethylene Glycol 3350 17 Gm Powd.Pack) 17 gm PO DAILY [facility] Trazodone HCl (Trazodone Hcl 50 Mg Tablet) 50 mg PO BEDTIME PRN PRN Reason: Insomnia Vitamin D (Cholecalciferol (Vitamin D3) 10 Mcg Tablet) 10 mcg PO DAILY [facility] Last Admin: 05/02/22 09:06 Dose: 10 mcg Allergies Allergies Allergy/AdvReac Type Severity Reaction Status Date / Time No Known Allergies Allergy Verified 04/22/22 18:53 Assessment & Plan Assessment & Plan (1) Schizoaffective disorder, bipolar type: Status: Acute Code(s): F25.0 - Schizoaffective disorder, bipolar type Plan Martina is a 61 y.o. Female who carries a dx schizoaffective disorder, bipolar type. She presented to [facility] on 04/22/22 due to her daughter being concerned with her behavior i.e. has not slept x 2 weeks, packs her bags and tries to leave the house in the middle of the night, pouring bleach on meat due to believing there are worms in it. Pt recently discharged from [facility] in 03/2022 due to med non-adherence and decompensation. She has been med adherent since discharge, however daughter does not notice any change in behavior. Pt has hx of paranoid ideations, believing she has worms in her body, and AH. ? of dementia. Plan: Pt's daughter reports depakote is causing tremor, this was not observed but will consider tapering down due to questionable benefit VPA 92.3 on admission. Pt's abilify recently increased on 04/15/22 from 15 mg daily to 10 mg BID, unclear benefit. Pt has hx of med non-adherence but daughter does not want NÚÑEZ again due to hx of EPS on invega sustenna. Will consider zydis to help with sleep and psychosis. 04/24: Will start propranolol 10 mg BID for depakote related tremor and lower depakote to 750 mg daily due to stated SE. Will start zydis 5 mg QHS and lower abilify to 5 mg BID as cross titration for sx of psychosis. 04/25: No medication changes, tremor improved 04/26: Decrease abilify to 5 mg daily to reduce polypharm, continue zydis trial 04/27 continue current medications. 04/28 increase olanzapine to 10mg po qhs. d/c depakote. 04/29 continue olanzapine 10mg po qhs. 04/30 continue current medications. 05/01 increase olanzapine to 15 mg qhs. start lithium 300mg po bid. 05/02 continue current regimen and plans 05/03: Continue current plans and regimen I spent minutes with the patient and/or on the patient floor today, greater than?50% of which was spent counseling/coordinating care. Reason for contiued inpatient stay Substantial Risk for: med/psych decompensation
[2022-05-03 08:37] VITALS: BP 140/85; PULSE 89; RESP 16; TEMP 36.2; O2SAT 100
[2022-05-03 08:58] LABS: TSH reflex Free T4 3.68 uIU/mL (0.32-4.0)
[2022-05-03] MEDS: Acetaminophen 325 MG TABLET 650 MG PO ×2 (09:03→17:42)
[2022-05-03 19:05] VITALS: BP 122/71; PULSE 108; RESP 16; TEMP 36.1; O2SAT 100
[2022-05-03] MEDS: OLANZapine ODT 10 MG TAB.RAPDIS 15 MG TRANSLINGU (21:10)
[2022-05-03 21:48] VITALS: BP 121/76; PULSE 95; RESP 16; TEMP 36.3; O2SAT 100
--- NOTE | 2022-05-03 21:49 | PC.NURSE ---
Pt asked about medications, c/o dizziness. 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 VS @2145 97.4, 95, 16, 121/76, 100%. Pt has had some medication adjustments past couple days. Offered and gave to patient some gingerale. Explained to pt she may be adjusting to new doses. Printed and gave to client summaries of olanzapine and lithium medications. Advised pt we can provide an welt cutter if she has questions. Pt verbalizes understanding and agrees. At end of conversation, pt sts she is no longer dizzy. Advised pt to sit before standing and stand before walking and to return to bed if she experiences any dizziness. She verbalizes undersanding and agrees. Continue to monitor.
[2022-05-04 06:00] VITALS: BP 139/78; PULSE 91; RESP 18; TEMP 36.4; O2SAT 98
[2022-05-04] MEDS: Levothyroxine Sodium 25 MCG TABLET PO (07:00)
--- NOTE | 2022-05-04 10:05 | P.PNPSI_ITS ---
Subjective Subjective Date of Service: 05/04/22 Reason For Visit: psychosis Subjective Notes: Conditional Voluntary Interim History: Pt reports feeling less depressed. She continues to report hearing voices but can't understand what they are saying. She reports sleeping well. She is visible on the unit, affecxt continues to be constricted. She denies SI/HI. 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 GI: c/o Nausea, denies Vomiting, diarrhea, constipation or heartburn Yes all other systems are reviewed and are negative Constitutional: Reports no additional constitutional complaints, Denies chills, Denies fever(s) and Denies night sweats Eyes: Reports no additional eye complaints, Denies blurry vision, Denies change in vision, Denies diplopia, Denies eye discharge, Denies loss of vision and Denies eye pain Denies dizziness Cardiovascular: Reports no additional cardiovascular complaints, Denies chest pain, Denies lightheadedness, Denies Loss of Consciousness and Denies dyspnea Respiratory: Reports no additional respiratory complaints and Denies dyspnea Gastrointestinal: Reports no additional gastrointestinal complaints, Denies abdominal pain, Denies melena, Denies hematochezia, Denies change in bowel habits and Denies change in stool character Musculoskeletal: Reports no additional musculoskeletal complaints, Denies numbness and Denies tingling Denies dizziness, Denies loss of vision, Denies numbness and Denies tingling Psychiatric: Reports no additional psychiatric complaints, Reports depression and Reports suicidal ideation Endocrine: Reports no additional endocrine complaints Hematologic/Lymphatic: Reports no additional hematologic/lymphatic complaints Allergic/Immunologic: Reports no additional allergic/immunologic complaints Mental Status Exam Mental Status Exam Narrative: In today's visit she is alert, oriented and pleasant. Normal speech. Little eye contact. Affect is appropriate and constricted. Reports auditory hallucina tions. No overt delusions. Some paranoia reported. No SI. Cognitively she has slow thought processes. Judgment is fair. Diagnostics Vital Signs (24Hr): Vital Signs - 24 hr 05/04/22 20:45 Temperature 98.4 F Pulse Rate 92 Respiratory Rate 16 Blood Pressure 116/77 Pulse Oximetry 100 Oxygen Delivery Method Room Air BMI result Body Mass Index 22.4 Labs Results: 04/23/22 09:40 04/24/22 09:16 Imaging Radiology Impressions: ITS Impressions KUB X-Ray 04/25/22 12:06 IMPRESSION: Nonobstructive bowel gas pattern. Mild to moderate colonic stool burden. Medications Medications Current Medications Acetaminophen (Acetaminophen 325 Mg Tablet) 650 mg PO Q6H PRN PRN Reason: Headache/Pain Mild Scale (1-3) Last Admin: 05/04/22 20:49 Dose: 650 mg Al Hydroxide/Mg Hydroxide (Magnesium Hydrox/Alum Hydrox 30 Ml Oral.Susp) 30 ml PO Q6H PRN PRN Reason: Heartburn/Nausea Benzocaine (Throat Lozenge, Medicated Lozenge) 1 lozenge MUCOUS MEM Q2H PRN PRN Reason: Sore Throat Last Admin: 04/28/22 15:45 Dose: 1 lozenge Benztropine Mesylate (Benztropine Mesylate 0.5 Mg Tablet) 0.5 mg PO BID PRN PRN Reason: Extrapyramidal Effects/Symptoms Hydroxyzine HCl (Hydroxyzine Hcl 25 Mg Tablet) 25 mg PO Q6H PRN PRN Reason: Anxiety Levothyroxine Sodium (Levothyroxine Sodium 25 Mcg Tablet) 25 mcg PO DAILY@0600 [facility] Last Admin: 05/04/22 07:00 Dose: 25 mcg [place] Carbonate ([place] Carbonate 300 Mg Capsule) 300 mg PO BID [facility] Last Admin: 05/04/22 22:01 Dose: 300 mg Magnesium Hydroxide (Milk Of Magnesia 30 Ml Oral.Susp) 30 ml PO DAILY PRN PRN Reason: Constipation Olanzapine (Olanzapine Odt 10 Mg Tab.Rapdis) 15 mg TRANSLINGU BEDTIME [facility] Last Admin: 05/04/22 22:01 Dose: 15 mg Polyethylene Glycol (Polyethylene Glycol 3350 17 Gm Powd.Pack) 17 gm PO DAILY [facility] Last Admin: 05/04/22 10:32 Dose: 17 gm Trazodone HCl (Trazodone Hcl 50 Mg Tablet) 50 mg PO BEDTIME PRN PRN Reason: Insomnia Vitamin D (Cholecalciferol (Vitamin D3) 10 Mcg Tablet) 10 mcg PO DAILY [facility] Last Admin: 05/04/22 10:32 Dose: 10 mcg Allergies Allergies Allergy/AdvReac Type Severity Reaction Status Date / Time No Known Allergies Allergy Verified 04/22/22 18:53 Assessment & Plan Assessment & Plan (1) Schizoaffective disorder, bipolar type: Status: Acute Code(s): F25.0 - Schizoaffective disorder, bipolar type Plan Martina is a 61 y.o. Female who carries a dx schizoaffective disorder, bipolar type. She presented to [facility] on 04/22/22 due to her daughter being concerned with her behavior i.e. has not slept x 2 weeks, packs her bags and tries to leave the house in the middle of the night, pouring bleach on meat due to believing there are worms in it. Pt recently discharged from [facility] in 03/2022 due to med non-adherence and decompensation. She has been med adherent since discharge, however daughter does not notice any change in behavior. Pt has hx of paranoid ideations, believing she has worms in her body, and AH. ? of dementia. Plan: Pt's daughter reports depakote is causing tremor, this was not observed but will consider tapering down due to questionable benefit VPA 92.3 on admission. Pt's abilify recently increased on 04/15/22 from 15 mg daily to 10 mg BID, unclear benefit. Pt has hx of med non-adherence but daughter does not want NÚÑEZ again due to hx of EPS on invega sustenna. Will consider zydis to help with sleep and psychosis. 04/24: Will start propranolol 10 mg BID for depakote related tremor and lower depakote to 750 mg daily due to stated SE. Will start zydis 5 mg QHS and lower a bilify to 5 mg BID as cross titration for sx of psychosis. 04/25: No medication changes, tremor improved 04/26: Decrease abilify to 5 mg daily to reduce polypharm, continue zydis trial 04/27 continue current medications. 04/28 increase olanzapine to 10mg po qhs. d/c depakote. 04/29 continue olanzapine 10mg po qhs. 04/30 continue current medications. 05/01 increase olanzapine to 15 mg qhs. start lithium 300mg po bid. 05/02 continue current regimen and plans 05/03: Continue current plans and regimen 05/04 continue current medications, pending lithium level. I spent minutes with the patient and/or on the patient floor today, greater than?50% of which was spent counseling/coordinating care. Reason for contiued inpatient stay Substantial Risk for: harm to self and inability to function
[2022-05-04] MEDS: polyethylene glycoL 3350 17 GM POWD.PACK PO (10:32)
[2022-05-04] MEDS: Lithium Carbonate 300 MG CAPSULE PO ×2 (10:32→22:01)
[2022-05-04] MEDS: Cholecalciferol (Vitamin D3) 10 MCG TABLET PO (10:32)
[2022-05-04 20:45] VITALS: BP 116/77; PULSE 92; RESP 16; TEMP 36.9; O2SAT 100
[2022-05-04] MEDS: Acetaminophen 325 MG TABLET 650 MG PO (20:49)
[2022-05-04] MEDS: OLANZapine ODT 10 MG TAB.RAPDIS 15 MG TRANSLINGU (22:01)
[2022-05-05 06:00] VITALS: BP 122/76; PULSE 74; RESP 16; TEMP 36.8; O2SAT 97
--- NOTE | 2022-05-05 09:38 | HO.PSYCHPN ---
Subjective Subjective Date of Service: 05/05/22 Reason For Visit: psychosis Subjective Notes: Conditional Voluntary Interim History: Pt reports feeling anxious, less depressed, pacing. Somewhat constricted affect, denies SI/HI. She continues to report hearing voices, and seeing some shadows. Per daughter, pt's orientation is better, but pt appears to present withdrawn and internally preoccupied. Pt slept throught the night, pt has been eating more consistently. 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 GI: c/o Nausea, denies Vomiting, diarrhea, constipation or heartburn Yes all other systems are reviewed and are negative Constitutional: Reports no additional constitutional complaints, Denies chills, Denies fever(s) and Denies night sweats Eyes: Reports no additional eye complaints, Denies blurry vision, Denies change in vision, Denies diplopia, Denies eye discharge, Denies loss of vision and Denies eye pain Denies dizziness Cardiovascular: Reports no additional cardiovascular complaints, Denies chest pain, Denies lightheadedness, Denies Loss of Consciousness and Denies dyspnea Respiratory: Reports no additional respiratory complaints and Denies dyspnea Gastrointestinal: Reports no additional gastrointestinal complaints, Denies abdominal pain, Denies melena, Denies hematochezia, Denies change in bowel habits and Denies change in stool character Musculoskeletal: Reports no additional musculoskeletal complaints, Denies numbness and Denies tingling Denies dizziness, Denies loss of vision, Denies numbness and Denies tingling Psychiatric: Reports no additional psychiatric complaints, Reports depression and Reports suicidal ideation Endocrine: Reports no additional endocrine complaints Hematologic/Lymphatic: Reports no additional hematologic/lymphatic complaints Allergic/Immunologic: Reports no additional allergic/immunologic complaints Mental Status Exam Mental Status Exam Narrative: In today's visit she is alert, oriented and pleasant. Normal speech. Little eye contact. Affect is appropriate and constricted. Reports auditory hallucinations. No overt delusions. Some paranoia reported. No SI. Cognitively she has slow thought processes. Judgment is fair. Diagnostics Vital Signs (24Hr): Vital Signs - 24 hr 05/06/22 19:00 05/07/22 09:01 Temperature 97.2 F 97.8 F Pulse Rate 87 100 Respiratory Rate 16 16 Blood Pressure 153/70 H 108/64 Pulse Oximetry 99 100 Oxygen Delivery Method Room Air Room Air BMI result Body Mass Index 22.4 Labs Results: 04/23/22 09:40 05/07/22 08:20 Labs: Laboratory Results - last 48 hr 05/06/22 05/06/22 05/07/22 07:39 07:39 08:20 Sodium 142 Potassium 4.3 Chloride 108 Carbon Dioxide 25 Anion Gap 13 BUN 12 Creatinine 0.64 Estim Creat Clear Calc 72.9 Estimated GFR > 60 Random Glucose 92 Calcium 8.6 Total Bilirubin 0.2 AST 37 H D ALT 36 H Alkaline Phosphatase 42 Total Protein 5.6 L Albumin 3.4 L TSH 4.52 H Free T4 0.90 [place] 0.56 L Imaging Radiology Impressions: ITS Impressions KUB X-Ray 04/25/22 12:06 IMPRESSION: Nonobstructive bowel gas pattern. Mild to moderate colonic stool burden. Medications Medications Current Medications Acetaminophen (Acetaminophen 325 Mg Tablet) 650 mg PO Q6H PRN PRN Reason: Headache/Pain Mild Scale (1-3) Last Admin: 05/07/22 09:09 Dose: 650 mg Al Hydroxide/Mg Hydroxide (Magnesium Hydrox/Alum Hydrox 30 Ml Oral.Susp) 30 ml PO Q6H PRN PRN Reason: Heartburn/Nausea Benzocaine (Throat Lozenge, Medicated Lozenge) 1 lozenge MUCOUS MEM Q2H PRN PRN Reason: Sore Throat Last Admin: 04/28/22 15:45 Dose: 1 lozenge Benztropine Mesylate (Benztropine Mesylate 0.5 Mg Tablet) 0.5 mg PO BID [facility] Last Admin: 05/07/22 09:09 Dose: 0.5 mg Hydroxyzine HCl (Hydroxyzine Hcl 25 Mg Tablet) 25 mg PO Q6H PRN PRN Reason: Anxiety Last Admin: 05/05/22 11:01 Dose: 25 mg Levothyroxine Sodium (Levothyroxine Sodium 25 Mcg Tablet) 25 mcg PO DAILY@0600 [facility] Last Admin: 05/07/22 09:10 Dose: 25 mcg [place] Carbonate ([place] Carbonate 300 Mg Capsule) 300 mg PO BID [facility] Last Admin: 05/07/22 09:10 Dose: 300 mg Magnesium Hydroxide (Milk Of Magnesia 30 Ml Oral.Susp) 30 ml PO DAILY PRN PRN Reason: Constipation Olanzapine (Olanzapine 5 Mg Tablet) 5 mg PO BID [facility] Last Admin: 05/07/22 09:10 Dose: 5 mg Polyethylene Glycol (Polyethylene Glycol 3350 17 Gm Powd.Pack) 17 gm PO DAILY [facility] Last Admin: 05/07/22 09:13 Dose: Not Given Trazodone HCl (Trazodone Hcl 50 Mg Tablet) 50 mg PO BEDTIME PRN PRN Reason: Insomnia Vitamin D (Cholecalciferol (Vitamin D3) 10 Mcg Tablet) 10 mcg PO DAILY [facility] Last Admin: 05/07/22 09:10 Dose: 10 mcg Allergies Allergies Allergy/AdvReac Type Severity Reaction Status Date / Time No Known Allergies Allergy Verified 04/22/22 18:53 Assessment & Plan Assessment & Plan (1) Schizoaffective disorder, bipolar type: Status: Acute Code(s): F25.0 - Schizoaffective disorder, bipolar type Plan Martina is a 61 y.o. Female who carries a dx schizoaffective disorder, bipolar type. She presented [place] [facility] [place]22 due to her daughter being concerned with her behavior i.e. has not slept x 2 weeks, packs her bags and tries to leave the house in the middle of the night, pouring bleach on meat due to believing there are worms in it. Pt recently discharged from [facility] in 03/2022 due to med non-adherence and decompensation. She has been med adherent since discharge, however daughter does not notice any change in behavior. Pt has hx of paranoid ideations, believing she has worms in her body, and AH. ? of dementia. Plan: Pt's daughter reports depakote is causing tremor, this was not observed but will consider tapering down due to questionable benefit VPA 92.3 on admission. Pt's abilify recently increased on 04/15/22 from 15 mg daily to 10 mg BID, unclear benefit. Pt has hx of med non-adherence but daughter does not want NÚÑEZ again due to hx of EPS on invega sustenna. Will consider zydis to help with sleep and psychosis. 04/24: Will start propranolol 10 mg BID for depakote related tremor and lower depakote to 750 mg daily due to stated SE. Will start zydis 5 mg QHS and lower abilify to 5 mg BID as cross titration for sx of psychosis. 04/25: No medication changes, tremor improved 04/26: Decrease abilify to 5 mg daily to reduce polypharm, continue zydis trial 04/27 continue current medications. 04/28 increase olanzapine to 10mg po qhs. d/c depakote. 04/29 continue olanzapine 10mg po qhs. 04/30 continue current medications. 05/01 increase olanzapine to 15 mg qhs. start lithium 300mg po bid. 05/02 continue current regimen and plans 05/03: Continue current plans and regimen 05/04 continue current medications, pending lithium level. 05/05 will increase olanzapine to 20mg po qhs. monitor EPS I spent minutes with the patient and/or on the patient floor today, greater than?50% of which was spent counseling/coordinating care. Reason for contiued inpatient stay Substantial Risk for: inability to function
[2022-05-05] MEDS: Cholecalciferol (Vitamin D3) 10 MCG TABLET PO (10:57)
[2022-05-05] MEDS: Levothyroxine Sodium 25 MCG TABLET PO (10:57)
[2022-05-05] MEDS: Lithium Carbonate 300 MG CAPSULE PO ×2 (10:57→20:00)
[2022-05-05] MEDS: hydrOXYzine HCL 25 MG TABLET PO (11:01)
[2022-05-05] MEDS: Acetaminophen 325 MG TABLET 650 MG PO ×2 (16:14→23:13)
[2022-05-05 19:57] VITALS: BP 130/58; PULSE 95; RESP 16; TEMP 36.6; O2SAT 96
[2022-05-05] MEDS: OLANZapine ODT 10 MG TAB.RAPDIS 20 MG TRANSLINGU (20:01)
[2022-05-06] MEDS: Levothyroxine Sodium 25 MCG TABLET PO (06:47)
[2022-05-06 08:00] VITALS: BP 115/80; PULSE 80; RESP 18; TEMP 36.5; O2SAT 100
[2022-05-06 09:04] LABS: Lithium 0.56 mmol/L (0.60-1.20)
[2022-05-06 09:36] LABS: TSH reflex Free T4 4.52 uIU/mL (0.32-4.0)
--- NOTE | 2022-05-06 09:50 | HO.PSYCHPN ---
Subjective Subjective Date of Service: 05/06/22 Reason For Visit: psychosis Subjective Notes: Conditional Voluntary Interim History: Pt with bilat cogwheel- pt does have hx of hypersensitivity to EPS with antipsychotics. Pt reports feeling anxious, no tapping feet, sleep is good, less likely to have akathisia, but possibility. She continues to report AH, seeing some shadows. She reports feeling less depressed, no SI. 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 GI: c/o Nausea, denies Vomiting, diarrhea, constipation or heartburn Yes all other systems are reviewed and are negative Constitutional: Reports no additional constitutional complaints, Denies chills, Denies fever(s) and Denies night sweats Eyes: Reports no additional eye complaints, Denies blurry vision, Denies change in vision, Denies diplopia, Denies eye discharge, Denies loss of vision and Denies eye pain Denies dizziness Cardiovascular: Reports no additional cardiovascular complaints, Denies chest pain, Denies lightheadedness, Denies Loss of Consciousness and Denies dyspnea Respiratory: Reports no additional respiratory complaints and Denies dyspnea Gastrointestinal: Reports no additional gastrointestinal complaints, Denies abdominal pain, Denies melena, Denies hematochezia, Denies change in bowel habits and Denies change in stool character Musculoskeletal: Reports no additional musculoskeletal complaints, Denies numbness and Denies tingling Denies dizziness, Denies loss of vision, Denies numbness and Denies tingling Psychiatric: Reports no additional psychiatric complaints, Reports depression and Reports suicidal ideation Endocrine: Reports no additional endocrine complaints Hematologic/Lymphatic: Reports no additional hematologic/lymphatic complaints Allergic/Immunologic: Reports no additional allergic/immunologic complaints Mental Status Exam Mental Status Exam Narrative: In today's visit she is alert, oriented and pleasant. Normal speech. Little eye contact. Affect is appropriate and constricted. Reports auditory hallucinations. No overt delusions. Some paranoia reported. No SI. Cognitively she has slow thought processes. Judgment is fair. Diagnostics Vital Signs (24Hr): Vital Signs - 24 hr 05/06/22 19:00 05/07/22 09:01 Temperature 97.2 F 97.8 F Pulse Rate 87 100 Respiratory Rate 16 16 Blood Pressure 153/70 H 108/64 Pulse Oximetry 99 100 Oxygen Delivery Method Room Air Room Air BMI result Body Mass Index 22.4 Labs Results: 04/23/22 09:40 05/07/22 08:20 Labs: Laboratory Results - last 48 hr 05/06/22 05/06/22 05/07/22 07:39 07:39 08:20 Sodium 142 Potassium 4.3 Chloride 108 Carbon Dioxide 25 Anion Gap 13 BUN 12 Creatinine 0.64 Estim Creat Clear Calc 72.9 Estimated GFR > 60 Random Glucose 92 Calcium 8.6 Total Bilirubin 0.2 AST 37 H D ALT 36 H Alkaline Phosphatase 42 Total Protein 5.6 L Albumin 3.4 L TSH 4.52 H Free T4 0.90 [place] 0.56 L Imaging Radiology Impressions: ITS Impressions KUB X-Ray 04/25/22 12:06 IMPRESSION: Nonobstructive bowel gas pattern. Mild to moderate colonic stool burden. Medications Medications Current Medications Acetaminophen (Acetaminophen 325 Mg Tablet) 650 mg PO Q6H PRN PRN Reason: Headache/Pain Mild Scale (1-3) Last Admin: 05/07/22 09:09 Dose: 650 mg Al Hydroxide/Mg Hydroxide (Magnesium Hydrox/Alum Hydrox 30 Ml Oral.Susp) 30 ml PO Q6H PRN PRN Reason: Heartburn/Nausea Benzocaine (Throat Lozenge, Medicated Lozenge) 1 lozenge MUCOUS MEM Q2H PRN PRN Reason: Sore Throat Last Admin: 04/28/22 15:45 Dose: 1 lozenge Benztropine Mesylate (Benztropine Mesylate 0.5 Mg Tablet) 0.5 mg PO BID [facility] Last Admin: 05/07/22 09:09 Dose: 0.5 mg Hydroxyzine HCl (Hydroxyzine Hcl 25 Mg Tablet) 25 mg PO Q6H PRN PRN Reason: Anxiety Last Admin: 05/05/22 11:01 Dose: 25 mg Levothyroxine Sodium (Levothyroxine Sodium 25 Mcg Tablet) 25 mcg PO DAILY@0600 [facility] Last Admin: 05/07/22 09:10 Dose: 25 mcg [place] Carbonate ([place] Carbonate 300 Mg Capsule) 300 mg PO BID [facility] Last Admin: 05/07/22 09:10 Dose: 300 mg Magnesium Hydroxide (Milk Of Magnesia 30 Ml Oral.Susp) 30 ml PO DAILY PRN PRN Reason: Constipation Olanzapine (Olanzapine 5 Mg Tablet) 5 mg PO BID [facility] Last Admin: 05/07/22 09:10 Dose: 5 mg Polyethylene Glycol (Polyethylene Glycol 3350 17 Gm Powd.Pack) 17 gm PO DAILY [facility] Last Admin: 05/07/22 09:13 Dose: Not Given Trazodone HCl (Trazodone Hcl 50 Mg Tablet) 50 mg PO BEDTIME PRN PRN Reason: Insomnia Vitamin D (Cholecalciferol (Vitamin D3) 10 Mcg Tablet) 10 mcg PO DAILY [facility] Last Admin: 05/07/22 09:10 Dose: 10 mcg Allergies Allergies Allergy/AdvReac Type Severity Reaction Status Date / Time No Known Allergies Allergy Verified 04/22/22 18:53 Assessment & Plan Assessment & Plan (1) Schizoaffective disorder, bipolar type: Status: Acute Code(s): F25.0 - Schizoaffective disorder, bipolar type Plan Martina is a 61 y.o. Female who carries a dx schizoaffective disorder, bipolar type. She [place] [facility] [place] due to her daughter being concerned with her behavior i.e. has not slept x 2 weeks, packs her bags and tries to leave the house in the middle of the night, pouring bleach on meat due to believing there are worms in it. Pt recently discharged from [facility] in 03/2022 due to med non-adherence and decompensation. She has been med adherent since discharge, however daughter does not notice any change in behavior. Pt has hx of paranoid ideations, believing she has worms in her body, and AH. ? of dementia. Plan: Pt's daughter reports depakote is causing tremor, this was not observed but will consider tapering down due to questionable benefit VPA 92.3 on admission. Pt's abilify recently increased on 04/15/22 from 15 mg daily to 10 mg BID, unclear benefit. Pt has hx of med non-adherence but daughter does not want NÚÑEZ again due to hx of EPS on invega sustenna. Will consider zydis to help with sleep and psychosis. 04/24: Will start propranolol 10 mg BID for depakote related tremor and lower depakote to 750 mg daily due to stated SE. Will start zydis 5 mg QHS and lower abilify to 5 mg BID as cross titration for sx of psychosis. 04/25: No medication changes, tremor improved 04/26: Decrease abilify to 5 mg daily to reduce polypharm, continue zydis trial 04/27 continue current medications. 04/28 increase olanzapine to 10mg po qhs. d/c depakote. 04/29 continue olanzapine 10mg po qhs. 04/30 continue current medications. 05/01 increase olanzapine to 15 mg qhs. start lithium 300mg po bid. 05/02 continue current regimen and plans 05/03: Continue current plans and regimen 05/04 continue current medications, pending lithium level. 05/05 will increase olanzapine to 20mg po qhs. monitor EPS 05/06 decrease olanzapine due to bilat cogwheel, add cogentin. monitor renal fnx with lithium, TSH. I spent minutes with the patient and/or on the patient floor today, greater than?50% of which was spent counseling/coordinating care. Reason for contiued inpatient stay Substantial Risk for: inability to function
[2022-05-06] MEDS: OLANZapine 5 MG TABLET PO ×2 (10:10→20:38)
[2022-05-06] MEDS: Lithium Carbonate 300 MG CAPSULE PO ×2 (10:11→20:38)
[2022-05-06] MEDS: Cholecalciferol (Vitamin D3) 10 MCG TABLET PO (10:12)
[2022-05-06 19:00] VITALS: BP 153/70; PULSE 87; RESP 16; TEMP 36.2; O2SAT 99
[2022-05-06] MEDS: Benztropine Mesylate 0.5 MG TABLET PO (20:38)
--- NOTE | 2022-05-06 23:10 | PC.NURSE ---
Pt reports anxiety /10, Depression /10, denies pain, SI/HI/VH. Reports AH mostly at night, declines PRN medication for anxiety. Pt is A&O, displays no outward signs of distress, however appears concerned and obtunded, and states she does not know how to express? what is bothering her, ?I just deal with it.? ?I?m okay. I want to go home.? Medication adherent, slow but appropriate response to questions, pacing the halls, attended art group.
[2022-05-07 09:01] VITALS: BP 108/64; PULSE 100; RESP 16; TEMP 36.6; O2SAT 100
[2022-05-07] MEDS: Benztropine Mesylate 0.5 MG TABLET PO ×2 (09:09→22:33)
[2022-05-07] MEDS: Acetaminophen 325 MG TABLET 650 MG PO ×2 (09:09→22:37)
[2022-05-07 09:10] LABS: Alanine Aminotransferase 36 U/L (0-31); Albumin Level 3.4 g/dL (3.5-5.0); Alkaline Phosphatase 42 U/L (39-117); Anion Gap 13 (12-20); Aspartate Amino Transferase 37 U/L (5-31); Bilirubin Total 0.2 mg/dL (0.0-1.0); Blood Urea Nitrogen 12 mg/dL (9-16); Calcium 8.6 mg/dL (8.4-10.2); Carbon Dioxide 25 mmol/L (22-29); Chloride 108 mmol/L (96-108); Creatinine Clr Calc Pharmacy 72.9; Estimated Glomerular Filt Rate > 60; Glucose Random 92 mg/dL (60-115); Potassium 4.3 mmol/L (3.3-5.1); Sodium 142 mmol/L (135-145); Total Protein 5.6 g/dL (6.5-8.0)
[2022-05-07] MEDS: OLANZapine 5 MG TABLET PO ×2 (09:10→22:34)
[2022-05-07] MEDS: Lithium Carbonate 300 MG CAPSULE PO ×2 (09:10→22:33)
[2022-05-07] MEDS: Cholecalciferol (Vitamin D3) 10 MCG TABLET PO (09:10)
[2022-05-07] MEDS: Levothyroxine Sodium 25 MCG TABLET PO (09:10)
--- NOTE | 2022-05-07 09:14 | HO.PSYCHPN ---
Subjective Subjective Date of Service: 05/07/22 Reason For Visit: psychosis Subjective Notes: Conditional Voluntary Interim History: Pt reports feeling slightly less anxious, sleeping better. She continues to report hearing voices when she wakes up at night but less so during the day. She denies SI/HI. Affect slightly brighter, less paranoid. slight cogwheel. 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, denies headache GI: c/o Nausea, denies Vomiting, diarrhea, constipation or heartburn Yes all other systems are reviewed and are negative Constitutional: Reports no additional constitutional complaints, Denies chills, Denies fever(s) and Denies night sweats Eyes: Reports no additional eye complaints, Denies blurry vision, Denies change in vision, Denies diplopia, Denies eye discharge, Denies loss of vision and Denies eye pain Denies dizziness Cardiovascular: Reports no additional cardiovascular complaints, Denies chest pain, Denies lightheadedness, Denies Loss of Consciousness and Denies dyspnea Respiratory: Reports no additional respiratory complaints and Denies dyspnea Gastrointestinal: Reports no additional gastrointestinal complaints, Denies abdominal pain, Denies melena, Denies hematochezia, Denies change in bowel habits and Denies change in stool character Musculoskeletal: Reports no additional musculoskeletal complaints, Denies numbness and Denies tingling Denies dizziness, Denies loss of vision, Denies numbness and Denies tingling Psychiatric: Reports no additional psychiatric complaints, Reports depression and Reports suicidal ideation Endocrine: Reports no additional endocrine complaints Hematologic/Lymphatic: Reports no additional hematologic/lymphatic complaints Allergic/Immunologic: Reports no additional allergic/immunologic complaints Mental Status Exam Mental Status Exam Narrative: In today's visit she is alert, oriented and pleasant. Normal speech. Little eye contact. Affect is appropriate and constricted. Reports auditory hallucinations. No overt delusions. Some paranoia reported. No SI. Cognitively she has slow thought processes. Judgment is fair. Diagnostics Vital Signs (24Hr): Vital Signs - 24 hr 05/08/22 23:00 Temperature 97.4 F Pulse Rate 73 Respiratory Rate 16 Blood Pressure 125/62 Pulse Oximetry 98 Oxygen Delivery Method Room Air BMI result Body Mass Index 22.4 Labs Results: 04/23/22 09:40 05/07/22 08:20 Imaging Radiology Impressions: ITS Impressions KUB X-Ray 04/25/22 12:06 IMPRESSION: Nonobstructive bowel gas pattern. Mild to moderate colonic stool burden. Medications Medications Current Medications Acetaminophen (Acetaminophen 325 Mg Tablet) 650 mg PO Q6H PRN PRN Reason: Headache/Pain Mild Scale (1-3) Last Admin: 05/08/22 08:08 Dose: 650 mg Al Hydroxide/Mg Hydroxide (Magnesium Hydrox/Alum Hydrox 30 Ml Oral.Susp) 30 ml PO Q6H PRN PRN Reason: Heartburn/Nausea Benzocaine (Throat Lozenge, Medicated Lozenge) 1 lozenge MUCOUS MEM Q2H PRN PRN Reason: Sore Throat Last Admin: 04/28/22 15:45 Dose: 1 lozenge Hydroxyzine HCl (Hydroxyzine Hcl 25 Mg Tablet) 25 mg PO Q6H PRN PRN Reason: Anxiety Last Admin: 05/05/22 11:01 Dose: 25 mg Levothyroxine Sodium (Levothyroxine Sodium 25 Mcg Tablet) 25 mcg PO DAILY@0600 [facility] Last Admin: 05/08/22 06:42 Dose: 25 mcg [place] Carbonate ([place] Carbonate 300 Mg Capsule) 300 mg PO BID [facility] Last Admin: 05/08/22 22:59 Dose: 300 mg Magnesium Hydroxide (Milk Of Magnesia 30 Ml Oral.Susp) 30 ml PO DAILY PRN PRN Reason: Constipation Olanzapine (Olanzapine 5 Mg Tablet) 5 mg PO BID [facility] Last Admin: 05/08/22 22:59 Dose: 5 mg Polyethylene Glycol (Polyethylene Glycol 3350 17 Gm Powd.Pack) 17 gm PO DAILY [facility] Last Admin: 05/08/22 08:10 Dose: Not Given Trazodone HCl (Trazodone Hcl 50 Mg Tablet) 50 mg PO BEDTIME PRN PRN Reason: Insomnia Vitamin D (Cholecalciferol (Vitamin D3) 10 Mcg Tablet) 10 mcg PO DAILY [facility] Last Admin: 05/08/22 08:09 Dose: 10 mcg Allergies Allergies Allergy/AdvReac Type Severity Reaction Status Date / Time No Known Allergies Allergy Verified 04/22/22 18:53 Assessment & Plan Assessment & Plan (1) Schizoaffective disorder, bipolar type: Status: Acute Code(s): F25.0 - Schizoaffective disorder, bipolar type Plan Martina is a 61 y.o. Female who carries a dx schizoaffective disorder, bipolar type. She presented to [facility] ED on 04/22/22 due to her daughter being concerned with her behavior i.e. has not slept x 2 weeks, packs her bags and tries to leave the house in the middle of the night, pouring bleach on meat due to believing there are worms in it. Pt recently discharged from [facility] in 03/2022 due to med non-adherence and decompensation. She has been med adherent since discharge, however daughter does not notice any change in behavior. Pt has hx of paranoid ideations, believing she has worms in her body, and AH. ? of dementia. Plan: Pt's daughter reports depakote is causing tremor, this was not observed but will consider tapering down due to questionable benefit VPA 92.3 on admission. Pt's abilify recently increased on 04/15/22 from 15 mg daily to 10 mg BID, unclear benefit. Pt has hx of med non-adherence but daughter does not want NÚÑEZ again due to hx of EPS on invega sustenna. Will consider zydis to help with sleep and psychosis. 04/24: Will start propranolol 10 mg BID for depakote related tremor and lower depakote to 750 mg daily due to stated SE. Will start zydis 5 mg QHS and lower abilify to 5 mg BID as cross titration for sx of psychosis. 04/25: No medication changes, tremor improved 04/26: Decrease abilify to 5 mg daily to reduce polypharm, continue zydis trial 04/27 continue current medications. 04/28 increase olanzapine to 10mg po qhs. d/c depakote. 04/29 continue olanzapine 10mg po qhs. 04/30 continue current medications. 05/01 increase olanzapine to 15 mg qhs. start lithium 300mg po bid. 05/02 continue current regimen and plans 05/03: Continue current plans and regimen 05/04 continue current medications, pending lithium level. 05/05 will increase olanzapine to 20mg po qhs. monitor EPS 05/06 decrease olanzapine due to bilat cogwheel, add cogentin. monitor renal fnx with lithium, TSH. 05/07 continue meds I spent minutes with the patient and/or on the patient floor today, greater than?50% of which was spent counseling/coordinating care. Reason for contiued inpatient stay Substantial Risk for: inability to function
[2022-05-07 22:32] VITALS: BP 123/75; PULSE 74; RESP 16; TEMP 36.2; O2SAT 98
[2022-05-08] MEDS: Levothyroxine Sodium 25 MCG TABLET PO (06:42)
[2022-05-08 08:00] VITALS: BP 118/73; PULSE 92; RESP 16; TEMP 36.4; O2SAT 97
[2022-05-08] MEDS: Acetaminophen 325 MG TABLET 650 MG PO (08:08)
[2022-05-08] MEDS: OLANZapine 5 MG TABLET PO ×2 (08:09→22:59)
[2022-05-08] MEDS: Benztropine Mesylate 0.5 MG TABLET PO ×2 (08:09→22:59)
[2022-05-08] MEDS: Lithium Carbonate 300 MG CAPSULE PO ×2 (08:09→22:59)
[2022-05-08] MEDS: Cholecalciferol (Vitamin D3) 10 MCG TABLET PO (08:09)
--- NOTE | 2022-05-08 09:11 | P.PNPSI_ITS ---
Subjective Subjective Date of Service: 05/08/22 Reason For Visit: psychosis Subjective Notes: Conditional Voluntary Interim History: Pt reports feeling less anxious, sleeping better. She does report hearing voices when she wakes up at night but less so during the day. She denies SI/HI. Affect slightly brighter, less paranoid. slight cogwheel. 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, denies headache GI: c/o Nausea, denies Vomiting, diarrhea, constipation or heartburn Yes all other systems are reviewed and are negative Constitutional: Reports no additional constitutional complaints, Denies chills, Denies fever(s) and Denies night sweats Eyes: Reports no additional eye complaints, Denies blurry vision, Denies change in vision, Denies diplopia, Denies eye discharge, Denies loss of vision and Denies eye pain Denies dizziness Cardiovascular: Reports no additional cardiovascular complaints, Denies chest pain, Denies lightheadedness, Denies Loss of Consciousness and Denies dyspnea Respiratory: Reports no additional respiratory complaints and Denies dyspnea Gastrointestinal: Reports no additional gastrointestinal complaints, Denies a bdominal pain, Denies melena, Denies hematochezia, Denies change in bowel habits and Denies change in stool character Musculoskeletal: Reports no additional musculoskeletal complaints, Denies numbness and Denies tingling Denies dizziness, Denies loss of vision, Denies numbness and Denies tingling Psychiatric: Reports no additional psychiatric complaints, Reports depression and Reports suicidal ideation Endocrine: Reports no additional endocrine complaints Hematologic/Lymphatic: Reports no additional hematologic/lymphatic complaints Allergic/Immunologic: Reports no additional allergic/immunologic complaints Mental Status Exam Mental Status Exam Narrative: In today's visit she is alert, oriented and pleasant. Normal speech. Little eye contact. Affect is appropriate and constricted. Reports auditory hallucinations. No overt delusions. Some paranoia reported. No SI. Cognitive ly she has slow thought processes. Judgment is fair. Diagnostics Vital Signs (24Hr): Vital Signs - 24 hr 05/08/22 23:00 Temperature 97.4 F Pulse Rate 73 Respiratory Rate 16 Blood Pressure 125/62 Pulse Oximetry 98 Oxygen Delivery Method Room Air BMI result Body Mass Index 22.4 Labs Results: 04/23/22 09:40 05/07/22 08:20 Imaging Radiology Impressions: ITS Impressions KUB X-Ray 04/25/22 12:06 IMPRESSION: Nonobstructive bowel gas pattern. Mild to moderate colonic stool burden. Medications Medications Current Medications Acetaminophen (Acetaminophen 325 Mg Tablet) 650 mg PO Q6H PRN PRN Reason: Headache/Pain Mild Scale (1-3) Last Admin: 05/08/22 08:08 Dose: 650 mg Al Hydroxide/Mg Hydroxide (Magnesium Hydrox/Alum Hydrox 30 Ml Oral.Susp) 30 ml PO Q6H PRN PRN Reason: Heartburn/Nausea Benzocaine (Throat Lozenge, Medicated Lozenge) 1 lozenge MUCOUS MEM Q2H PRN PRN Reason: Sore Throat Last Admin: 04/28/22 15:45 Dose: 1 lozenge Benztropine Mesylate (Benztropine Mesylate 0.5 Mg Tablet) 0.5 mg PO BID [facility] Last Admin: 05/08/22 22:59 Dose: 0.5 mg Hydroxyzine HCl (Hydroxyzine Hcl 25 Mg Tablet) 25 mg PO Q6H PRN PRN Reason: Anxiety Last Admin: 05/05/22 11:01 Dose: 25 mg Levothyroxine Sodium (Levothyroxine Sodium 25 Mcg Tablet) 25 mcg PO DAILY@0600 [facility] Last Admin: 05/08/22 06:42 Dose: 25 mcg [place]ie Carbonate (Ritchie Carbonate 300 Mg Capsule) 300 mg PO BID [facility] Last Admin: 05/08/22 22:59 Dose: 300 mg Magnesium Hydroxide (Milk Of Magnesia 30 Ml Oral.Susp) 30 ml PO DAILY PRN PRN Reason: Constipation Olanzapine (Olanzapine 5 Mg Tablet) 5 mg PO BID [facility] Last Admin: 05/08/22 22:59 Dose: 5 mg Polyethylene Glycol (Polyethylene Glycol 3350 17 Gm Powd.Pack) 17 gm PO DAILY [facility] Last Admin: 05/08/22 08:10 Dose: Not Given Trazodone HCl (Trazodone Hcl 50 Mg Tablet) 50 mg PO BEDTIME PRN PRN Reason: Insomnia Vitamin D (Cholecalciferol (Vitamin D3) 10 Mcg Tablet) 10 mcg PO DAILY [facility] Last Admin: 05/08/22 08:09 Dose: 10 mcg Allergies Allergies Allergy/AdvReac Type Severity Reaction Status Date / Time No Known Allergies Allergy Verified 04/22/22 18:53 Assessment & Plan Assessment & Plan (1) Schizoaffective disorder, bipolar type: Status: Acute Code(s): F25.0 - Schizoaffective disorder, bipolar type Plan Martina is a 61 y.o. Female who carries a dx schizoaffective disorder, bipolar type. She presented to [facility] on 04/22/22 due to her daughter being concerned with her behavior i.e. has not slept x 2 weeks, packs her bags and tries to leave the house in the middle of the night, pouring bleach on meat due to believing there are worms in it. Pt recently discharged from [facility] in 03/2022 due to med non-adherence and decompensation. She has been med adherent since discharge, however daughter does not notice any change in behavior. Pt has hx of paranoid ideations, believing she has worms in her body, and AH. ? of dementia. Plan: Pt's daughter reports depakote is causing tremor, this was not observed but will consider tapering down due to questionable benefit VPA 92.3 on admission. Pt's abilify recently increased on 04/15/22 from 15 mg daily to 10 mg BID, unclear benefit. Pt has hx of med non-adherence but daughter does not want NÚÑEZ again due to hx of EPS on invega sustenna. Will consider zydis to help with sleep and psychosis. 04/24: Will start propranolol 10 mg BID for depakote related tremor and lower depakote to 750 mg daily due to stated SE. Will start zydis 5 mg QHS and lower abilify to 5 mg BID as cross titration for sx of psychosis. 04/25: No medication changes, tremor improved 04/26: Decrease abilify to 5 mg daily to reduce polypharm, continue zydis trial 04/27 continue current medications. 04/28 increase olanzapine to 10mg po qhs. d/c depakote. 04/29 continue olanzapine 10mg po qhs. 04/30 continue current medications. 05/01 increase olanzapine to 15 mg qhs. start lithium 300mg po bid. 05/02 continue current regimen and plans 05/03: Continue current plans and regimen 05/04 continue current medications, pending lithium level. 05/05 will increase olanzapine to 20mg po qhs. monitor EPS 05/06 decrease olanzapine due to bilat cogwheel, add cogentin. monitor renal fnx with lithium, TSH. 05/07 continue meds 05/08 continue current medication, I spent minutes with the patient and/or on the patient floor today, greater than?50% of which was spent counseling/coordinating care. Reason for contiued inpatient stay Substantial Risk for: inability to function
[2022-05-08 23:00] VITALS: BP 125/62; PULSE 73; RESP 16; TEMP 36.3; O2SAT 98
--- NOTE | 2022-05-09 09:29 | HO.PSYCHPN ---
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 Pt says she is a little bit better and feels her medication is working, although she does feel like Im in slow motion and that this is more mental than physical. Sleep is pretty good, but wakes up throughout the night. Energy is good. Eating well. Denies anxiety. Does not want med changes. Says tremor is less, no cogwheeling noticed when assessed. Misses her grandkids, somewhat sad about this but otherwise denies mood or behavioral concerns. Denies SI/SIB. Medication Compliance: Yes Side effects from medications: No Attending Groups: No Review of Systems Acute medical concerns: No Medical Review of Systems: unchanged Mental Status Exam Mental Status Exam Narrative: In today's visit she is alert, oriented and pleasant.? Normal speech.? Little eye contact.? Affect is appropriate and constricted.? Reports auditory hallucinations.? No overt delusions.? Some paranoia reported.? No SI.? Cognitively she has slow thought processes.? Judgment is fair. Diagnostics Vital Signs (24Hr): Vital Signs - 24 hr 05/08/22 23:00 Temperature 97.4 F Pulse Rate 73 Respiratory Rate 16 Blood Pressure 125/62 Pulse Oximetry 98 Oxygen Delivery Method Room Air BMI result Body Mass Index 22.4 Labs Results: 04/23/22 09:40 05/07/22 08:20 Imaging Radiology Impressions: ITS Impressions KUB X-Ray 04/25/22 12:06 IMPRESSION: Nonobstructive bowel gas pattern. Mild to moderate colonic stool burden. Medications Medications Current Medications Acetaminophen (Acetaminophen 325 Mg Tablet) 650 mg PO Q6H PRN PRN Reason: Headache/Pain Mild Scale (1-3) Last Admin: 05/08/22 08:08 Dose: 650 mg Al Hydroxide/Mg Hydroxide (Magnesium Hydrox/Alum Hydrox 30 Ml Oral.Susp) 30 ml PO Q6H PRN PRN Reason: Heartburn/Nausea Benzocaine (Throat Lozenge, Medicated Lozenge) 1 lozenge MUCOUS MEM Q2H PRN PRN Reason: Sore Throat Last Admin: 04/28/22 15:45 Dose: 1 lozenge Benztropine Mesylate (Benztropine Mesylate 1 Mg Tablet) 1 mg PO BID [facility] Hydroxyzine HCl (Hydroxyzine Hcl 25 Mg Tablet) 25 mg PO Q6H PRN PRN Reason: Anxiety Last Admin: 05/05/22 11:01 Dose: 25 mg Levothyroxine Sodium (Levothyroxine Sodium 25 Mcg Tablet) 25 mcg PO DAILY@0600 [facility] Last Admin: 05/08/22 06:42 Dose: 25 mcg [place] Carbonate ([place] Carbonate 300 Mg Capsule) 300 mg PO BID [facility] Last Admin: 05/08/22 22:59 Dose: 300 mg Magnesium Hydroxide (Milk Of Magnesia 30 Ml Oral.Susp) 30 ml PO DAILY PRN PRN Reason: Constipation Olanzapine (Olanzapine 5 Mg Tablet) 5 mg PO BID [facility] Last Admin: 05/08/22 22:59 Dose: 5 mg Polyethylene Glycol (Polyethylene Glycol 3350 17 Gm Powd.Pack) 17 gm PO DAILY [facility] Last Admin: 05/08/22 08:10 Dose: Not Given Trazodone HCl (Trazodone Hcl 50 Mg Tablet) 50 mg PO BEDTIME PRN PRN Reason: Insomnia Vitamin D (Cholecalciferol (Vitamin D3) 10 Mcg Tablet) 10 mcg PO DAILY [facility] Last Admin: 05/08/22 08:09 Dose: 10 mcg Allergies Allergies Allergy/AdvReac Type Severity Reaction Status Date / Time No Known Allergies Allergy Verified 04/22/22 18:53 Assessment & Plan Assessment & Plan (1) Schizoaffective disorder, bipolar type: Status: Acute Code(s): F25.0 - Schizoaffective disorder, bipolar type Plan Martina is a 61 y.o. Female who carries a dx schizoaffective disorder, bipolar type. She presented to [facility] on 04/22/22 due to her daughter being concerned with her behavior i.e. has not slept x 2 weeks, packs her bags and tries to leave the house in the middle of the night, pouring bleach on meat due to believing there are worms in it. Pt recently discharged from [facility] in 03/2022 due to med non-adherence and decompensation. She has been med adherent since discharge, however daughter does not notice any change in behavior. Pt has hx of paranoid ideations, believing she has worms in her body, and AH. ? of dementia. Plan: Pt's daughter reports depakote is causing tremor, this was not observed but will consider tapering down due to questionable benefit VPA 92.3 on admission. Pt's abilify recently increased on 04/15/22 from 15 mg daily to 10 mg BID, unclear benefit. Pt has hx of med non-adherence but daughter does not want NÚÑEZ again due to hx of EPS on invega sustenna. Will consider zydis to help with sleep and psychosis. 04/24: Will start propranolol 10 mg BID for depakote related tremor and lower depakote to 750 mg daily due to stated SE. Will start zydis 5 mg QHS and lower abilify to 5 mg BID as cross titration for sx of psychosis. 04/25: No medication changes, tremor improved 04/26: Decrease abilify to 5 mg daily to reduce polypharm, continue zydis trial 04/27 continue current medications. 04/28 increase olanzapine to 10mg po qhs. d/c depakote. 04/29 continue olanzapine 10mg po qhs. 04/30 continue current medications. 05/01 increase olanzapine to 15 mg qhs. start lithium 300mg po bid. 05/02 continue current regimen and plans 05/03: Continue current plans and regimen 05/04 continue current medications, pending lithium level. 05/05 will increase olanzapine to 20mg po qhs. monitor EPS 05/06 decrease olanzapine due to bilat cogwheel, add cogentin. monitor renal fnx with lithium, TSH. 05/07 continue meds 05/08 continue meds 05/09 reviewed lab work, Li level 0.56 on 05/06/22, does not want med increases as she is feeling slowed I spent minutes with the patient and/or on the patient floor today, greater than?50% of which was spent counseling/coordinating care. Patient educated on: diagnosis, medication risk/benefits and therapeutic strategies Reason for contiued inpatient stay Substantial Risk for: inability to function and med/psych decompensation
[2022-05-09] MEDS: Levothyroxine Sodium 25 MCG TABLET PO (09:52)
[2022-05-09 09:55] VITALS: BP 104/61; PULSE 84; RESP 18; TEMP 36.6; O2SAT 100
[2022-05-09] MEDS: Lithium Carbonate 300 MG CAPSULE PO ×2 (10:06→20:43)
[2022-05-09] MEDS: Cholecalciferol (Vitamin D3) 10 MCG TABLET PO (10:06)
[2022-05-09] MEDS: OLANZapine 5 MG TABLET PO ×2 (10:07→20:43)
[2022-05-09] MEDS: Benztropine Mesylate 0.5 MG TABLET PO (10:08)
[2022-05-09] MEDS: Benztropine Mesylate 1 MG TABLET PO (20:43)
[2022-05-09 20:45] VITALS: BP 149/68; PULSE 80; RESP 18; TEMP 36.2; O2SAT 97
[2022-05-10 08:15] VITALS: BP 129/77; PULSE 93; RESP 18; TEMP 36.3; O2SAT 97
[2022-05-10] MEDS: Cholecalciferol (Vitamin D3) 10 MCG TABLET PO (08:29)
[2022-05-10] MEDS: OLANZapine 5 MG TABLET PO ×2 (08:29→21:42)
[2022-05-10] MEDS: Lithium Carbonate 300 MG CAPSULE PO ×2 (08:29→21:41)
[2022-05-10] MEDS: Benztropine Mesylate 1 MG TABLET PO ×2 (08:30→21:42)
[2022-05-10] MEDS: Levothyroxine Sodium 25 MCG TABLET PO (08:30)
[2022-05-10] MEDS: Acetaminophen 325 MG TABLET 650 MG PO ×2 (08:44→21:42)
--- NOTE | 2022-05-10 11:00 | P.PNPSI_ITS ---
Subjective Subjective Date of Service: 05/10/22 Reason For Visit: psychosis Subjective Notes: Benjamin Warning Interim History: I spoke with pt with educational interpreter. Says she is anxious to go back home, feeling better. Tolerating medications, no cogwheeling noticed. Sleep is sufficient but wakes up in the middle of the night, pacing, daytime energy is good. Says If it was up to me I would leave yesterday. Still has a little depression and attributes this to missing home and because of the things that are happening or that I watch on the TV. Honestly I dont know how to explain it, sometimes wants to cry. Denies SI/SIB. Feels safe. Denies feeling slowed today but unable to articulate what this means. Appetite is good, eating. Medication Compliance: Yes Side effects from medications: No Attending Groups: No Review of Systems Acute medical concerns: No Medical Review of Systems: unchanged Mental Status Exam Mental Status Exam Narrative: In today's visit she is alert, oriented and pleasant.? Normal speech.? Little eye contact.? Affect is appropriate and constricted.? Reports auditory hallucinations.? No overt delusions.? Some paranoia reported.? No SI.? Cognitively she has slow thought processes.? Judgment is fair. Diagnostics Vital Signs (24Hr): Vital Signs - 24 hr 05/09/22 20:45 05/10/22 08:15 Temperature 97.2 F 97.4 F Pulse Rate 80 93 Respiratory Rate 18 18 Blood Pressure 149/68 H 129/77 Pulse Oximetry 97 97 Oxygen Delivery Method Room Air Room Air BMI result Body Mass Index 22.4 Labs Results: 04/23/22 09:40 05/07/22 08:20 Imaging Radiology Impressions: ITS Impressions KUB X-Ray 04/25/22 12:06 IMPRESSION: Nonobstructive bowel gas pattern. Mild to moderate colonic stool burden. Medications Medications Current Medications Acetaminophen (Acetaminophen 325 Mg Tablet) 650 mg PO Q6H PRN PRN Reason: Headache/Pain Mild Scale (1-3) Last Admin: 05/10/22 08:44 Dose: 650 mg Al Hydroxide/Mg Hydroxide (Magnesium Hydrox/Alum Hydrox 30 Ml Oral.Susp) 30 ml PO Q6H PRN PRN Reason: Heartburn/Nausea Benzocaine (Throat Lozenge, Medicated Lozenge) 1 lozenge MUCOUS MEM Q2H PRN PRN Reason: Sore Throat Last Admin: 04/28/22 15:45 Dose: 1 lozenge Benztropine Mesylate (Benztropine Mesylate 1 Mg Tablet) 1 mg PO BID [facility] Last Admin: 05/10/22 08:30 Dose: 1 mg Hydroxyzine HCl (Hydroxyzine Hcl 25 Mg Tablet) 25 mg PO Q6H PRN PRN Reason: Anxiety Last Admin: 05/05/22 11:01 Dose: 25 mg Levothyroxine Sodium (Levothyroxine Sodium 25 Mcg Tablet) 25 mcg PO DAILY@0600 [facility] Last Admin: 05/10/22 08:30 Dose: 25 mcg [place] Carbonate ([place] Carbonate 300 Mg Capsule) 300 mg PO BID [facility] Last Admin: 05/10/22 08:29 Dose: 300 mg Magnesium Hydroxide (Milk Of Magnesia 30 Ml Oral.Susp) 30 ml PO DAILY PRN PRN Reason: Constipation Olanzapine (Olanzapine 5 Mg Tablet) 5 mg PO BID [facility] Last Admin: 05/10/22 08:29 Dose: 5 mg Polyethylene Glycol (Polyethylene Glycol 3350 17 Gm Powd.Pack) 17 gm PO DAILY [facility] Last Admin: 05/10/22 10:09 Dose: Not Given Trazodone HCl (Trazodone Hcl 50 Mg Tablet) 50 mg PO BEDTIME PRN PRN Reason: Insomnia Vitamin D (Cholecalciferol (Vitamin D3) 10 Mcg Tablet) 10 mcg PO DAILY [facility] Last Admin: 05/10/22 08:29 Dose: 10 mcg Allergies Allergies Allergy/AdvReac Type Severity Reaction Status Date / Time No Known Allergies Allergy Verified 04/22/22 18:53 Assessment & Plan Assessment & Plan (1) Schizoaffective disorder, bipolar type: Status: Acute Code(s): F25.0 - Schizoaffective disorder, bipolar type Plan Martina is a 61 y.o. Female who carries a dx schizoaffective disorder, bipolar type. She presented to [facility] on 04/22/22 due to her daughter being concerned with her behavior i.e. has not slept x 2 weeks, packs her bags and tries to leave the house in the middle of the night, pouring bleach on meat due to believing there are worms in it. Pt recently discharged from [facility] in 03/2022 due to med non-adherence and decompensation. She has been med adherent since discharge, however daughter does not notice any change in behavior. Pt has hx of paranoid ideations, believing she has worms in her body, and AH. ? of dementia. Plan: Pt's daughter reports depakote is causing tremor, this was not observed but will consider tapering down due to questionable benefit VPA 92.3 on admission. Pt's abilify recently increased on 04/15/22 from 15 mg daily to 10 mg BID, unclear benefit. Pt has hx of med non-adherence but daughter does not want NÚÑEZ again due to hx of EPS on invega sustenna. Will consider zydis to help with sleep and psychosis. 04/24: Will start propranolol 10 mg BID for depakote related tremor and lower depakote to 750 mg daily due to stated SE. Will start zydis 5 mg QHS and lower abilify to 5 mg BID as cross titration for sx of psychosis. 04/25: No medication changes, tremor improved 04/26: Decrease abilify to 5 mg daily to reduce polypharm, continue zydis trial 04/27 continue current medications. 04/28 increase olanzapine to 10mg po qhs. d/c depakote. 04/29 continue olanzapine 10mg po qhs. 04/30 continue current medications. 05/01 increase olanzapine to 15 mg qhs. start lithium 300mg po bid. 05/02 continue current regimen and plans 05/03: Continue current plans and regimen 05/04 continue current medications, pending lithium level. 05/05 will increase olanzapine to 20mg po qhs. monitor EPS 05/06 decrease olanzapine due to bilat cogwheel, add cogentin. monitor renal fnx with lithium, TSH. 05/07 continue meds 05/08 continue meds 05/09 reviewed lab work, Li level 0.56 on 05/06/22, does not want med increases as she is feeling slowed 05/10 continue meds I spent minutes with the patient and/or on the patient floor today, greater than?50% of which was spent counseling/coordinating care. Patient educated on: therapeutic strategies Reason for contiued inpatient stay Substantial Risk for: med/psych decompensation
[2022-05-10 20:35] VITALS: BP 126/65; PULSE 104; RESP 18; TEMP 36.3; O2SAT 96
[2022-05-11] MEDS: Levothyroxine Sodium 25 MCG TABLET PO (06:05)
[2022-05-11 07:55] VITALS: BP 112/72; PULSE 71; TEMP 36.6; O2SAT 98
[2022-05-11] MEDS: Cholecalciferol (Vitamin D3) 10 MCG TABLET PO (08:08)
[2022-05-11] MEDS: Benztropine Mesylate 1 MG TABLET PO ×2 (08:08→20:47)
[2022-05-11] MEDS: Lithium Carbonate 300 MG CAPSULE PO ×2 (08:08→20:47)
[2022-05-11] MEDS: OLANZapine 5 MG TABLET PO ×2 (08:09→20:47)
[2022-05-11] MEDS: Acetaminophen 325 MG TABLET 650 MG PO (16:16)
--- NOTE | 2022-05-11 16:52 | P.PNPSI_ITS ---
Subjective Subjective Date of Service: 05/11/22 Reason For Visit: psychosis Subjective Notes: Benjamin Warning Interim History: I spoke with pt with per diem interpreter. Says she is not doing as well today, has worries but doesnt know how to explain what she is worried about. Feels safe. Appetite is good. Still wakes up a lot in the night, was up at 4am. Open to trialing melatonin PRN. Mood is still depressed but not sure why. Says the meds are working well. Denies SI/SIB/HI. Medication Compliance: Yes Side effects from medications: No Attending Groups: No Review of Systems Acute medical concerns: No Medical Review of Systems: unchanged Mental Status Exam Mental Status Exam Narrative: In today's visit she is alert, oriented and pleasant.? Normal speech.? Little eye contact.? Affect is appropriate and constricted.? Reports auditory hallucinations, does not understand what they are saying.? No overt delusions.? Some paranoia reported.? No SI.? Cognitively she has slow thought processes.? Judgment is fair. Diagnostics Vital Signs (24Hr): Vital Signs - 24 hr 05/10/22 20:35 05/11/22 07:55 Temperature 97.4 F 97.8 F Pulse Rate 104 H 71 Respiratory Rate 18 Blood Pressure 126/65 112/72 Pulse Oximetry 96 98 Oxygen Delivery Method Room Air Room Air BMI result Body Mass Index 22.4 Labs Results: 04/23/22 09:40 05/07/22 08:20 Imaging Radiology Impressions: ITS Impressions KUB X-Ray 04/25/22 12:06 IMPRESSION: Nonobstructive bowel gas pattern. Mild to moderate colonic stool burden. Medications Medications Current Medications Acetaminophen (Acetaminophen 325 Mg Tablet) 650 mg PO Q6H PRN PRN Reason: Headache/Pain Mild Scale (1-3) Last Admin: 05/11/22 16:16 Dose: 650 mg Al Hydroxide/Mg Hydroxide (Magnesium Hydrox/Alum Hydrox 30 Ml Oral.Susp) 30 ml PO Q6H PRN PRN Reason: Heartburn/Nausea Benzocaine (Throat Lozenge, Medicated Lozenge) 1 lozenge MUCOUS MEM Q2H PRN PRN Reason: Sore Throat Last Admin: 04/28/22 15:45 Dose: 1 lozenge Benztropine Mesylate (Benztropine Mesylate 1 Mg Tablet) 1 mg PO BID [facility] Last Admin: 05/11/22 08:08 Dose: 1 mg Hydroxyzine HCl (Hydroxyzine Hcl 25 Mg Tablet) 25 mg PO Q6H PRN PRN Reason: Anxiety Last Admin: 05/05/22 11:01 Dose: 25 mg Levothyroxine Sodium (Levothyroxine Sodium 25 Mcg Tablet) 25 mcg PO DAILY@0600 [facility] Last Admin: 05/11/22 06:05 Dose: 25 mcg [place] Carbonate ([place] Carbonate 300 Mg Capsule) 300 mg PO BID [facility] Last Admin: 05/11/22 08:08 Dose: 300 mg Magnesium Hydroxide (Milk Of Magnesia 30 Ml Oral.Susp) 30 ml PO DAILY PRN PRN Reason: Constipation Olanzapine (Olanzapine 5 Mg Tablet) 5 mg PO BID [facility] Last Admin: 05/11/22 08:09 Dose: 5 mg Polyethylene Glycol (Polyethylene Glycol 3350 17 Gm Powd.Pack) 17 gm PO DAILY [facility] Last Admin: 05/11/22 08:09 Dose: Not Given Trazodone HCl (Trazodone Hcl 50 Mg Tablet) 50 mg PO BEDTIME PRN PRN Reason: Insomnia Vitamin D (Cholecalciferol (Vitamin D3) 10 Mcg Tablet) 10 mcg PO DAILY [facility] Last Admin: 05/11/22 08:08 Dose: 10 mcg Allergies Allergies Allergy/AdvReac Type Severity Reaction Status Date / Time No Known Allergies Allergy Verified 04/22/22 18:53 Assessment & Plan Assessment & Plan (1) Schizoaffective disorder, bipolar type: Status: Acute Code(s): F25.0 - Schizoaffective disorder, bipolar type Plan Martina is a 61 y.o. Female who carries a dx schizoaffective disorder, bipolar type. She presented to [facility] on 04/22/22 due to her daughter being concerned with her behavior i.e. has not slept x 2 weeks, packs her bags and tries to leave the house in the middle of the night, pouring bleach on meat due to believing there are worms in it. Pt recently discharged from [facility] in 03/2022 due to med non-adherence and decompensation. She has been med adherent since [facility], however daughter does not notice any change in behavior. Pt has hx of paranoid ideations, believing she has worms in her body, and AH. ? of dementia. Plan: Pt's daughter reports depakote is causing tremor, this was not observed but will consider tapering down due to questionable benefit VPA 92.3 on admission. Pt's abilify recently increased on 04/15/22 from 15 mg daily to 10 mg BID, unclear benefit. Pt has hx of med non-adherence but daughter does not want NÚÑEZ again due to hx of EPS on invega sustenna. Will consider zydis to help with sleep and psychosis. 04/24: Will start propranolol 10 mg BID for depakote related tremor and lower depakote to 750 mg daily due to stated SE. Will start zydis 5 mg QHS and lower abilify to 5 mg BID as cross titration for sx of psychosis. 04/25: No medication changes, tremor improved 04/26: Decrease abilify to 5 mg daily to reduce polypharm, continue zydis trial 04/27 continue current medications. 04/28 increase olanzapine to 10mg po qhs. d/c depakote. 04/29 continue olanzapine 10mg po qhs. 04/30 continue current medications. 05/01 increase olanzapine to 15 mg qhs. start lithium 300mg po bid. 05/02 continue current regimen and plans 05/03: Continue current plans and regimen 05/04 continue current medications, pending lithium level. 05/05 will increase olanzapine to 20mg po qhs. monitor EPS 05/06 decrease olanzapine due to bilat cogwheel, add cogentin. monitor renal fnx with lithium, TSH. 05/07 continue meds 05/08 continue meds 05/09 reviewed lab work, Li level 0.56 on 05/06/22, does not want med increases as she is feeling slowed 05/10 continue meds 05/11 add melatonin PRN for disrupted sleep I spent minutes with the patient and/or on the patient floor today, greater than?50% of which was spent counseling/coordinating care. Patient educated on: medication risk/benefits and therapeutic strategies Reason for contiued inpatient stay Substantial Risk for: med/psych decompensation
[2022-05-11] MEDS: Bismuth Subsalicylate 262 MG TABLET 524 MG PO ×2 (19:21→20:50)
[2022-05-11 19:25] VITALS: BP 112/57; PULSE 83; RESP 16; TEMP 36.4; O2SAT 99
[2022-05-12 08:00] VITALS: BP 116/60; PULSE 90; RESP 16; TEMP 36.3; O2SAT 100
[2022-05-12] MEDS: Acetaminophen 325 MG TABLET 650 MG PO ×2 (08:47→21:07)
[2022-05-12] MEDS: Cholecalciferol (Vitamin D3) 10 MCG TABLET PO (08:48)
[2022-05-12] MEDS: Lithium Carbonate 300 MG CAPSULE PO ×2 (08:48→21:07)
[2022-05-12] MEDS: Levothyroxine Sodium 25 MCG TABLET PO (08:49)
[2022-05-12] MEDS: Benztropine Mesylate 1 MG TABLET PO ×2 (08:49→21:07)
[2022-05-12] MEDS: OLANZapine 5 MG TABLET PO ×2 (08:49→21:07)
--- NOTE | 2022-05-12 14:18 | P.PNPSI_ITS ---
Subjective Subjective Date of Service: 05/12/22 Reason For Visit: psychosis Subjective Notes: Conditional Voluntary Interim History: Pt reports sleep is better and states she does not hear voices as much when she wakes up. She denies SI/HI. She reports depression but inconsistent as to whether is better or not. She asks when she can go home. Per nursing pt visible on the unit, social with select peers but mostly on her own. She has attended some groups. No behavioral concerns. Medication Compliance: Yes Side effects from medications: No Review of Systems Review of Systems CVS: No c/o chest pain, palpitations, no [employer]: c/o dizziness, denies headache GI: c/o Nausea, denies Vomiting, diarrhea, constipation or heartburn Yes all other systems are reviewed and are negative Constitutional: Reports no additional constitutional complaints, Denies chills, Denies fever(s) and Denies night sweats Eyes: Reports no additional eye complaints, Denies blurry vision, Denies change in vision, Denies diplopia, Denies eye discharge, Denies loss of vision and Denies eye pain Denies dizziness Cardiovascular: Reports no additional cardiovascular complaints, Denies chest pain, Denies lightheadedness, Denies Loss of Consciousness and Denies dyspnea Respiratory: Reports no additional respiratory complaints and Denies dyspnea Gastrointestinal: Reports no additional gastrointestinal complaints, Denies abdominal pain, Denies melena, Denies hematochezia, Denies change in bowel habits and Denies change in stool character Musculoskeletal: Reports no additional musculoskeletal complaints, Denies numbness and Denies tingling Denies dizziness, Denies loss of vision, Denies numbness and Denies tingling Psychiatric: Reports no additional psychiatric complaints, Reports depression and Reports suicidal ideation Endocrine: Reports no additional endocrine complaints Hematologic/Lymphatic: Reports no additional hematologic/lymphatic complaints Allergic/Immunologic: Reports no additional allergic/immunologic complaints Diagnostics Vital Signs (24Hr): Vital Signs - 24 hr 05/11/22 19:25 05/12/22 08:00 Temperature 97.6 F 97.4 F Pulse Rate 83 90 Respiratory Rate 16 16 Blood Pressure 112/57 L 116/60 Pulse Oximetry 99 100 Oxygen Delivery Method Room Air Room Air BMI result Body Mass Index 22.4 Labs Results: 04/23/22 09:40 05/07/22 08:20 Imaging Radiology Impressions: ITS Impressions KUB X-Ray 04/25/22 12:06 IMPRESSION: Nonobstructive bowel gas pattern. Mild to moderate colonic stool burden. Medications Medications Current Medications Acetaminophen (Acetaminophen 325 Mg Tablet) 650 mg PO Q6H PRN PRN Reason: Headache/Pain Mild Scale (1-3) Last Admin: 05/12/22 08:47 Dose: 650 mg Al Hydroxide/Mg Hydroxide (Magnesium Hydrox/Alum Hydrox 30 Ml Oral.Susp) 30 ml PO Q6H PRN PRN Reason: Heartburn/Nausea Benzocaine (Throat Lozenge, Medicated Lozenge) 1 lozenge MUCOUS MEM Q2H PRN PRN Reason: Sore Throat Last Admin: 04/28/22 15:45 Dose: 1 lozenge Benztropine Mesylate (Benztropine Mesylate 1 Mg Tablet) 1 mg PO BID [facility] Last Admin: 05/12/22 08:49 Dose: 1 mg [place] Subsalicylate ([place] Subsalicylate 262 Mg Tablet) 524 mg PO Q1H PRN PRN Reason: Diarrhea, GI distress Last Admin: 05/11/22 20:50 Dose: 524 mg Hydroxyzine HCl (Hydroxyzine Hcl 25 Mg Tablet) 25 mg PO Q6H PRN PRN Reason: Anxiety Last Admin: 05/05/22 11:01 Dose: 25 mg Levothyroxine Sodium (Levothyroxine Sodium 25 Mcg Tablet) 25 mcg PO DAILY@0600 [facility] Last Admin: 05/12/22 08:49 Dose: 25 mcg [place] Carbonate ([place] Carbonate 300 Mg Capsule) 300 mg PO BID [facility] Last Admin: 05/12/22 08:48 Dose: 300 mg Magnesium Hydroxide (Milk Of Magnesia 30 Ml Oral.Susp) 30 ml PO DAILY PRN PRN Reason: Constipation Melatonin (Melatonin 3 Mg Tablet) 3 mg PO BEDTIME PRN PRN Reason: Insomnia Olanzapine (Olanzapine 5 Mg Tablet) 5 mg PO BID [facility] Last Admin: 05/12/22 08:49 Dose: 5 mg Polyethylene Glycol (Polyethylene Glycol 3350 17 Gm Powd.Pack) 17 gm PO DAILY [facility] Last Admin: 05/12/22 08:49 Dose: Not Given Trazodone HCl (Trazodone Hcl 50 Mg Tablet) 50 mg PO BEDTIME PRN PRN Reason: Insomnia Vitamin D (Cholecalciferol (Vitamin D3) 10 Mcg Tablet) 10 mcg PO DAILY [facility] Last Admin: 05/12/22 08:48 Dose: 10 mcg Allergies Allergies Allergy/AdvReac Type Severity Reaction Status Date / Time No Known Allergies Allergy Verified 04/22/22 18:53 Assessment & Plan Assessment & Plan (1) Schizoaffective disorder, bipolar type: Status: Acute Code(s): F25.0 - Schizoaffective disorder, bipolar type Plan Martina is a 61 y.o. Female who carries a dx schizoaffective disorder, bipolar type. She presented to [facility] [place] 04[place] due to her daughter being concerned with her behavior i.e. has not slept x 2 weeks, packs her bags and tries to leave the house in the middle of the night, pouring bleach on meat due to believing there are worms in it. Pt recently discharged from [facility] in 03/2022 due to med non-adherence and decompensation. She has been med adherent since discharge, however daughter does not notice any change in behavior. Pt has hx of paranoid ideations, believing she has worms in her body, and AH. ? of dementia. Plan: Pt's daughter reports depakote is causing tremor, this was not observed but will consider tapering down due to questionable benefit VPA 92.3 on admission. Pt's abilify recently increased on 04/15/22 from 15 mg daily to 10 mg BID, unclear benefit. Pt has hx of med non-adherence but daughter does not want NÚÑEZ again due to hx of EPS on invega sustenna. Will consider zydis to help with sleep and psychosis. 04/24: Will start propranolol 10 mg BID for depakote related tremor and lower depakote to 750 mg daily due to stated SE. Will start zydis 5 mg QHS and lower abilify to 5 mg BID as cross titration for sx of psychosis. 04/25: No medication changes, tremor improved 04/26: Decrease abilify to 5 mg daily to reduce polypharm, continue zydis trial 04/27 continue current medications. 04/28 increase olanzapine to 10mg po qhs. d/c depakote. 04/29 continue olanzapine 10mg po qhs. 04/30 continue current medications. 05/01 increase olanzapine to 15 mg qhs. start lithium 300mg po bid. 8/27 continue current regimen and plans 05/03: Continue current plans and regimen 05/04 continue current medications, pending lithium level. 05/05 will increase olanzapine to 20mg po qhs. monitor EPS 05/06 decrease olanzapine due to bilat cogwheel, add cogentin. monitor renal fnx with lithium, TSH. 05/07 continue meds 05/08 continue meds 05/09 reviewed lab work, Li level 0.56 on 05/06/22, does not want med increases as she is feeling slowed 05/10 continue meds 05/11 add melatonin PRN for disrupted sleep 05/12 continue current meds. I spent minutes with the patient and/or on the patient floor today, greater than?50% of which was spent counseling/coordinating care. Reason for contiued inpatient stay Substantial Risk for: inability to function
[2022-05-12] MEDS: Bismuth Subsalicylate 262 MG TABLET 524 MG PO ×2 (18:33→21:07)
[2022-05-12 21:07] VITALS: BP 119/59; PULSE 84; RESP 18; TEMP 36.6; O2SAT 97
[2022-05-13] MEDS: polyethylene glycoL 3350 17 GM POWD.PACK PO (08:24)
[2022-05-13] MEDS: OLANZapine 5 MG TABLET PO ×2 (08:24→20:09)
[2022-05-13] MEDS: Levothyroxine Sodium 25 MCG TABLET PO (08:24)
[2022-05-13] MEDS: Lithium Carbonate 300 MG CAPSULE PO ×2 (08:24→20:09)
[2022-05-13] MEDS: Cholecalciferol (Vitamin D3) 10 MCG TABLET PO (08:24)
[2022-05-13] MEDS: Benztropine Mesylate 1 MG TABLET PO ×2 (08:24→20:09)
[2022-05-13 09:05] VITALS: BP 115/70; PULSE 84; RESP 14; TEMP 36.3; O2SAT 99
--- NOTE | 2022-05-13 11:27 | P.PNPSI_ITS ---
Subjective Subjective Date of Service: 05/13/22 Reason For Visit: psychosis Subjective Notes: Conditional Voluntary Interim History: Pt has been more visible on the unit. She has attended some groups- mostly art and crafts, eating 100% of meals. Pt reports she is sleeping better, less AH, no shadows. She denies thinking that bugs coming out of her hands. She is less suspicious. She is still with somewhat constricted affect but reports feeling less depressed and denies SI/HI. Less bilat tremors, much less cogwheel. She denies restless or need to pace. Collateral from daughter today- who reports pt appears much more organized able to have more coherent conversations and orientation has improved. She agrees with discharge this coming Wednesday. 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 headache GI: c/o Nausea, denies Vomiting, diarrhea, constipation or heartburn Yes all other systems are reviewed and are negative Constitutional: Reports no additional constitutional complaints, Denies chills, Denies fever(s) and Denies night sweats Eyes: Reports no additional eye complaints, Denies blurry vision, Denies change in vision, Denies diplopia, Denies eye discharge, Denies loss of vision and Denies eye pain Denies dizziness Cardiovascular: Reports no additional cardiovascular complaints, Denies chest pain, Denies lightheadedness, Denies Loss of Consciousness and Denies dyspnea Respiratory: Reports no additional respiratory complaints and Denies dyspnea Gastrointestinal: Reports no additional gastrointestinal complaints, Denies abdominal pain, Denies melena, Denies hematochezia, Denies change in bowel habits and Denies change in stool character Musculoskeletal: Reports no additional musculoskeletal complaints, Denies numbness and Denies tingling Denies dizziness, Denies loss of vision, Denies numbness and Denies tingling Psychiatric: Reports no additional psychiatric complaints, Reports depression and Reports suicidal ideation Endocrine: Reports no additional endocrine complaints Hematologic/Lymphatic: Reports no additional hematologic/lymphatic complaints Allergic/Immunologic: Reports no additional allergic/immunologic complaints Mental Status Exam Mental Status Exam Narrative: In today's visit she is alert, oriented and pleasant.? Normal speech.? Little eye contact.? Affect is appropriate and constricted.? Reports less auditory hallucinations. NO VH- used to see shadows.? No overt delusions.? ? No SI/HI.? Memory/cog: alert, oriented x 3. orientation has improved after depakote d/c- will do another MOCA and compared with one done when she was first admitted.? Judgment is fair. Speech with less delayed in response, more spontaneous. Diagnostics Vital Signs (24Hr): Vital Signs - 24 hr 05/12/22 21:07 05/13/22 09:05 Temperature 97.8 F 97.3 F Pulse Rate 84 84 Respiratory Rate 18 14 Blood Pressure 119/59 L 115/70 Pulse Oximetry 97 99 Oxygen Delivery Method Room Air Room Air BMI result Body Mass Index 22.4 Labs Results: 04/23/22 09:40 05/07/22 08:20 Imaging Radiology Impressions: ITS Impressions KUB X-Ray 04/25/22 12:06 IMPRESSION: Nonobstructive bowel gas pattern. Mild to moderate colonic stool burden. Medications Medications Current Medications Acetaminophen (Acetaminophen 325 Mg Tablet) 650 mg PO Q6H PRN PRN Reason: Headache/Pain Mild Scale (1-3) Last Admin: 05/13/22 14:44 Dose: 650 mg Al Hydroxide/Mg Hydroxide (Magnesium Hydrox/Alum Hydrox 30 Ml Oral.Susp) 30 ml PO Q6H PRN PRN Reason: Heartburn/Nausea Benzocaine (Throat Lozenge, Medicated Lozenge) 1 lozenge MUCOUS MEM Q2H PRN PRN Reason: Sore Throat Last Admin: 04/28/22 15:45 Dose: 1 lozenge Benztropine Mesylate (Benztropine Mesylate 1 Mg Tablet) 1 mg PO BID [facility] Last Admin: 05/13/22 08:24 Dose: 1 mg Bismuth Subsalicylate (Bismuth Subsalicylate 262 Mg Tablet) 524 mg PO Q1H PRN PRN Reason: Diarrhea, GI distress Last Admin: 05/12/22 21:07 Dose: 524 mg Hydroxyzine HCl (Hydroxyzine Hcl 25 Mg Tablet) 25 mg PO Q6H PRN PRN Reason: Anxiety Last Admin: 05/05/22 11:01 Dose: 25 mg Levothyroxine Sodium (Levothyroxine Sodium 25 Mcg Tablet) 25 mcg PO DAILY@0600 [facility] Last Admin: 05/13/22 08:24 Dose: 25 mcg [place] Carbonate ([place] Carbonate 300 Mg Capsule) 300 mg PO BID [facility] Last Admin: 05/13/22 08:24 Dose: 300 mg Lorazepam (Lorazepam 0.5 Mg Tablet) 0.5 mg PO BEDTIME [facility] Magnesium Hydroxide (Milk Of Magnesia 30 Ml Oral.Susp) 30 ml PO DAILY PRN PRN Reason: Constipation Melatonin (Melatonin 3 Mg Tablet) 3 mg PO BEDTIME PRN PRN Reason: Insomnia Olanzapine (Olanzapine 5 Mg Tablet) 5 mg PO BID [facility] Last Admin: 05/13/22 08:24 Dose: 5 mg Polyethylene Glycol (Polyethylene Glycol 3350 17 Gm Powd.Pack) 17 gm PO DAILY [facility] Last Admin: 05/13/22 08:24 Dose: 17 gm Trazodone HCl (Trazodone Hcl 50 Mg Tablet) 50 mg PO BEDTIME PRN PRN Reason: Insomnia Vitamin D (Cholecalciferol (Vitamin D3) 10 Mcg Tablet) 10 mcg PO DAILY [facility] Last Admin: 05/13/22 08:24 Dose: 10 mcg Allergies Allergies Allergy/AdvReac Type Severity Reaction Status Date / Time No Known Allergies Allergy Verified 04/22/22 18:53 Assessment & Plan Assessment & Plan (1) Schizoaffective disorder, bipolar type: Status: Acute Code(s): F25.0 - Schizoaffective disorder, bipolar type Plan Martina is a 61 y.o. Female who carries a dx schizoaffective disorder, bipolar type. She presented to [facility] on 04/22/22 due to her daughter being concerned with her behavior i.e. has not slept x 2 weeks, packs her bags and tries to leav e the house in the middle of the night, pouring bleach on meat due to believing there are worms in it. Pt recently discharged from [facility] in 03/2022 due to med non-adherence and decompensation. She has been med adherent since discharge, however daughter does not notice any change in behavior. Pt has hx of paranoid ideations, believing she has worms in her body, and AH. ? of dementia. Plan: Pt's daughter reports depakote is causing tremor, this was not observed but will consider tapering down due to questionable benefit VPA 92.3 on admission. Pt's abilify recently increased on 04/15/22 from 15 mg daily to 10 mg BID, unclear benefit. Pt has hx of med non-adherence but daughter does not want NÚÑEZ again due to hx of EPS on invega sustenna. Will consider zydis to help with sleep and psychosis. 04/24: Will start propranolol 10 mg BID for depakote related tremor and lower depakote to 750 mg daily due to stated SE. Will start zydis 5 mg QHS and lower abilify to 5 mg BID as cross titration for sx of psychosis. 04/25: No medication changes, tremor improved 04/26: Decrease abilify to 5 mg daily to reduce polypharm, continue zydis trial 04/27 continue current medications. 04/28 increase olanzapine to 10mg po qhs. d/c depakote. 04/29 continue olanzapine 10mg po qhs. 04/30 continue current medications. 05/01 increase olanzapine to 15 mg qhs. start lithium 300mg po bid. 05/02 continue current regimen and plans 05/03: Continue current plans and regimen 05/04 continue current medications, pending lithium level. 05/05 will increase olanzapine to 20mg po qhs. monitor EPS 05/06 decrease olanzapine due to bilat cogwheel, add cogentin. monitor renal fnx with lithium, TSH. 05/07 continue meds 05/08 continue meds 05/09 reviewed lab work, Li level 0.56 on 05/06/22, does not want med increases as she is feeling slowed 05/10 continue meds 05/11 add melatonin PRN for disrupted sleep 05/12 continue current meds. 05/13 continue current meds- check lithium level tomorrow AM. will add low dose of ativan 0.5mg po qhs for sleep. I spent minutes with the patient and/or on the patient floor today, greater than?50% of which was spent counseling/coordinating care. Reason for contiued inpatient stay Substantial Risk for: inability to function
[2022-05-13] MEDS: Acetaminophen 325 MG TABLET 650 MG PO ×2 (14:44→20:15)
[2022-05-13 19:30] VITALS: BP 115/64; PULSE 78; RESP 16; TEMP 36.6; O2SAT 99
[2022-05-13] MEDS: LORazepam 0.5 MG TABLET PO (20:09)
--- NOTE | 2022-05-14 00:28 | PC.NURSE ---
Pt c/o general pain, sts knee is worst with no effectiveness from Tylenol. Also c/o LE edema, ?never before in my life.? Provider advised she should speak with doctor 05/14/22 to discuss her concerns r-t pain medication, considering lithium may guide treatment options. Explained this to patient and suggested she also discuss her edema with provider. She verbalized understanding and agrees.
[2022-05-14 06:00] VITALS: BP 112/63; PULSE 88; RESP 16; TEMP 36.7; O2SAT 96
[2022-05-14 07:00] VITALS: BMI 24.4
[2022-05-14] MEDS: Lithium Carbonate 300 MG CAPSULE PO ×2 (09:16→23:53)
[2022-05-14] MEDS: Cholecalciferol (Vitamin D3) 10 MCG TABLET PO (09:16)
[2022-05-14] MEDS: Benztropine Mesylate 1 MG TABLET PO ×2 (09:16→23:53)
[2022-05-14] MEDS: Levothyroxine Sodium 25 MCG TABLET PO (09:16)
[2022-05-14] MEDS: OLANZapine 5 MG TABLET PO ×2 (09:16→23:53)
[2022-05-14] MEDS: Acetaminophen 325 MG TABLET 650 MG PO ×2 (09:16→17:14)
[2022-05-14 10:14] LABS: TSH reflex Free T4 3.63 uIU/mL (0.32-4.0)
--- NOTE | 2022-05-14 14:56 | P.PNPSI_ITS ---
Subjective Subjective Date of Service: 05/14/22 Reason For Visit: psychosis Subjective Notes: Conditional Voluntary Interim History: Pt has been more visible on the unit. She has attended some groups- mostly art and crafts, eating 100% of meals. Pt reports she is sleeping better, less AH, no shadows. She denies thinking that bugs coming out of her hands. She is less suspicious. She is still with somewhat constricted affect but reports feeling less depressed and denies SI/HI. Less bilat tremors, much less cogwheel. She denies restless or need to pace. Collateral from daughter today- who reports pt appears much more organized able to have more coherent conversations and orientation has improved. She agrees with discharge this coming Wednesday. 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 GI: c/o Nausea, denies Vomiting, diarrhea, constipation or heartburn Yes all other systems are reviewed and are negative Constitutional: Reports no additional constitutional complaints, Denies chills, Denies fever(s) and Denies night sweats Eyes: Reports no additional eye complaints, Denies blurry vision, Denies change in vision, Denies diplopia, Denies eye discharge, Denies loss of vision and D enies eye pain Denies dizziness Cardiovascular: Reports no additional cardiovascular complaints, Denies chest pain, Denies lightheadedness, Denies Loss of Consciousness and Denies dyspnea Respiratory: Reports no additional respiratory complaints and Denies dyspnea Gastrointestinal: Reports no additional gastrointestinal complaints, Denies abdominal pain, Denies melena, Denies hematochezia, Denies change in bowel habits and Denies change in stool character Musculoskeletal: Reports no additional musculoskeletal complaints, Denies numbness and Denies tingling Denies dizziness, Denies loss of vision, Denies numbness and Denies tingling Psychiatric: Reports no additional psychiatric complaints, Reports depression and Reports suicidal ideation Endocrine: Reports no additional endocrine complaints Hematologic/Lymphatic: Reports no additional hematologic/lymphatic complaints Allergic/Immunologic: Reports no additional allergic/immunologic complaints Mental Status Exam Mental Status Exam Narrative: In today's visit she is alert, oriented and pleasant.? Normal speech.? Little eye contact.? Affect is appropriate and constricted.? Reports less auditory hallucinations. NO VH- used to see shadows.? No overt delusions.? ? No SI/HI.? Memory/cog: alert, oriented x 3. orientation has improved after depakote d/c- will do another MOCA and compared with one done when she was first admitted.? Judgment is fair. Speech with less delayed in response, more spontaneous. Diagnostics Vital Signs (24Hr): Vital Signs - 24 hr 05/13/22 19:30 05/14/22 06:00 Temperature 97.8 F 98.1 F Pulse Rate 78 88 Respiratory Rate 16 16 Blood Pressure 115/64 112/63 Pulse Oximetry 99 96 Oxygen Delivery Method Room Air Room Air BMI result Body Mass Index 24.4 Labs Results: 04/23/22 09:40 05/07/22 08:20 Labs: Laboratory Results - last 48 hr 05/14/22 05/14/22 08:35 08:35 TSH 3.63 [place] 0.50 L Imaging Radiology Impressions: ITS Impressions KUB X-Ray 04/25/22 12:06 IMPRESSION: Nonobstructive bowel gas pattern. Mild to moderate colonic stool burden. Medications Medications Current Medications Acetaminophen (Acetaminophen 325 Mg Tablet) 650 mg PO Q6H PRN PRN Reason: Headache/Pain Mild Scale (1-3) Last Admin: 05/14/22 09:16 Dose: 650 mg Al Hydroxide/Mg Hydroxide (Magnesium Hydrox/Alum Hydrox 30 Ml Oral.Susp) 30 ml PO Q6H PRN PRN Reason: Heartburn/Nausea Benzocaine (Throat Lozenge, Medicated Lozenge) 1 lozenge MUCOUS MEM Q2H PRN PRN Reason: Sore Throat Last Admin: 04/28/22 15:45 Dose: 1 lozenge Benztropine Mesylate (Benztropine Mesylate 1 Mg Tablet) 1 mg PO BID [facility] Last Admin: 05/14/22 09:16 Dose: 1 mg Bismuth Subsalicylate (Bismuth Subsalicylate 262 Mg Tablet) 524 mg PO Q1H PRN PRN Reason: Diarrhea, GI distress Last Admin: 05/12/22 21:07 Dose: 524 mg Hydroxyzine HCl (Hydroxyzine Hcl 25 Mg Tablet) 25 mg PO Q6H PRN PRN Reason: Anxiety Last Admin: 05/05/22 11:01 Dose: 25 mg Levothyroxine Sodium (Levothyroxine Sodium 25 Mcg Tablet) 25 mcg PO DAILY@0600 [facility] Last Admin: 05/14/22 09:16 Dose: 25 mcg [place] Carbonate ([place] Carbonate 300 Mg Capsule) 300 mg PO BID [facility] Last Admin: 05/14/22 09:16 Dose: 300 mg Lorazepam (Lorazepam 0.5 Mg Tablet) 0.5 mg PO BEDTIME [facility] Last Admin: 05/13/22 20:09 Dose: 0.5 mg Magnesium Hydroxide (Milk Of Magnesia 30 Ml Oral.Susp) 30 ml PO DAILY PRN PRN Reason: Constipation Melatonin (Melatonin 3 Mg Tablet) 3 mg PO BEDTIME PRN PRN Reason: Insomnia Olanzapine (Olanzapine 5 Mg Tablet) 5 mg PO BID [facility] Last Admin: 05/14/22 09:16 Dose: 5 mg Polyethylene Glycol (Polyethylene Glycol 3350 17 Gm Powd.Pack) 17 gm PO DAILY [facility] Last Admin: 05/14/22 09:17 Dose: Not Given Trazodone HCl (Trazodone Hcl 50 Mg Tablet) 50 mg PO BEDTIME PRN PRN Reason: Insomnia Vitamin D (Cholecalciferol (Vitamin D3) 10 Mcg Tablet) 10 mcg PO DAILY [facility] Last Admin: 05/14/22 09:16 Dose: 10 mcg Allergies Allergies Allergy/AdvReac Type Severity Reaction Status Date / Time No Known Allergies Allergy Verified 04/22/22 18:53 Assessment & Plan Assessment & Plan (1) Schizoaffective disorder, bipolar type: Status: Acute Code(s): F25.0 - Schizoaffective disorder, bipolar type Plan Martina is a 61 y.o. Female who carries a dx schizoaffective disorder, bipolar type. She presented to [facility] on 04/22/22 due to her daughter being concerned with her behavior i.e. has not slept x 2 weeks, packs her bags and tries to leave the house in the middle of the night, pouring bleach on meat due to believing there are worms in it. Pt recently discharged from [facility] in 03/2022 due to med non-adherence and decompensation. She has been med adherent since d ischarge, however daughter does not notice any change in behavior. Pt has hx of paranoid ideations, believing she has worms in her body, and AH. ? of dementia. Plan: Pt's daughter reports depakote is causing tremor, this was not observed but will consider tapering down due to questionable benefit VPA 92.3 on admission. Pt's abilify recently increased on 04/15/22 from 15 mg daily to 10 mg BID, unclear benefit. Pt has hx of med non-adherence but daughter does not want NÚÑEZ again due to hx of EPS on invega sustenna. Will consider zydis to help with sleep and psychosis. 04/24: Will start propranolol 10 mg BID for depakote related tremor and lower depakote to 750 mg daily due to stated SE. Will start zydis 5 mg QHS and lower abilify to 5 mg BID as cross titration for sx of psychosis. 04/25: No medication changes, tremor improved 04/26: Decrease abilify to 5 mg daily to reduce polypharm, continue zydis trial 04/27 continue current medications. 04/28 increase olanzapine to 10mg po qhs. d/c depakote. 04/29 continue olanzapine 10mg po qhs. 04/30 continue current medications. 05/01 increase olanzapine to 15 mg qhs. start lithium 300mg po bid. 05/02 continue current regimen and plans 05/03: Continue current plans and regimen 05/04 continue current medications, pending lithium level. 05/05 will increase olanzapine to 20mg po qhs. monitor EPS 05/06 decrease olanzapine due to bilat cogwheel, add cogentin. monitor renal fnx with lithium, TSH. 05/07 continue meds 05/08 continue meds 05/09 reviewed lab work, Li level 0.56 on 05/06/22, does not want med increases as she is feeling slowed 05/10 continue meds 05/11 add melatonin PRN for disrupted sleep 05/12 continue current meds. 05/13 continue current meds- check lithium level tomorrow AM. will add low dose of ativan 0.5mg po qhs for sleep. 05/14 continue current meds. I spent minutes with the patient and/or on the patient floor today, greater than?50% of which was spent counseling/coordinating care. Reason for contiued inpatient stay Substantial Risk for: stable for discharge
[2022-05-14] MEDS: Bismuth Subsalicylate 262 MG TABLET 524 MG PO (18:49)
[2022-05-14] MEDS: LORazepam 0.5 MG TABLET PO (23:53)
[2022-05-15 09:34] VITALS: BP 140/59; PULSE 100; RESP 16; TEMP 36.6; O2SAT 99
[2022-05-15] MEDS: Benztropine Mesylate 1 MG TABLET PO (09:35)
[2022-05-15] MEDS: Levothyroxine Sodium 25 MCG TABLET PO (09:35)
[2022-05-15] MEDS: OLANZapine 5 MG TABLET PO (09:36)
[2022-05-15] MEDS: Lithium Carbonate 300 MG CAPSULE PO (09:36)
[2022-05-15] MEDS: Cholecalciferol (Vitamin D3) 10 MCG TABLET PO (09:36)
--- NOTE | 2022-05-15 10:49 | PM.PSYDC ---
DS: Providers Provider Date of Service: 05/15/22 Date of admission: 04/23/22 16:08 Primary care physician: Unknown Physician DS: Diagnosis Discharge Diagnosis (1) Schizoaffective disorder, bipolar type: Status: Acute DS: Medications Discharge Medications Home Medications: Previous Rx's Medication Instructions Recorded benztropine 1 mg tablet 1 mg PO BID #60 tabs 05/15/22 cholecalciferol (vitamin D3) 10 10 mcg PO DAILY #30 tabs 05/15/22 mcg (400 unit) tablet (Vitamin D3) levothyroxine 25 mcg tablet 25 mcg PO DAILY@0600 #30 tabs 05/15/22 lithium carbonate 300 mg capsule 300 mg PO BID #60 caps 05/15/22 lorazepam 0.5 mg tablet 0.5 mg PO BEDTIME #30 tabs 05/15/22 olanzapine 5 mg tablet 5 mg PO BID #60 tabs 05/15/22 Mental Status Exam Mental Status Exam Narrative: In today's visit she is alert, oriented and pleasant.? Normal speech.? Good eye contact.? Affect is appropriate and brighter, non labile? NO VH- used to see shadows.? No overt delusions.? ? No SI/HI.? Memory/cog: alert, oriented x 3. orientation has improved after depakote d/c- will do another MOCA and compared with one done when she was first admitted.? Judgment is fair. Speech with less delayed in response, more spontaneous. Data Data Completed and Pending Completed studies during hospitalization [Text1]: 05/14/22 05/14/22 08:35 08:35 TSH 3.63 [place] 0.50 L 04/22/22 Unknown Urine clean catch - Urine galvez top Urine Culture - Final Lactobacillus species Imaging Diagnostic Imaging Impressions KUB X-Ray 04/25/22 12:06 IMPRESSION: Nonobstructive bowel gas pattern. Mild to moderate colonic stool burden. DS: Summary Hospital Course Hospital Course: HPI: Subjective Notes: Benjamin Warning and Conditional Voluntary Healthcare Proxy: No Guardianship: No Medical Problems Affecting Mental Status: No Narrative: Martina is a 61 y.o. Female who carries a dx schizoaffective disorder, bipolar type. She presented to [facility] ED on 04/22/22 due to her daughter being concerned with her behavior i.e. has not slept x 2 weeks, packs her bags and tries to leave the house in the middle of the night, pouring bleach on meat due to believing there are worms in it. Pt recently discharged from [facility] in 03/2022 due to med non-adherence and decompensation. She has been med adherent since discharge, however daughter does not notice any benefit.??VPA level 92.3. I evaluated the pt this evening with park interpreter and upon interview she reports she is at the hospital for worsening depression x 1-2 months and thoughts of harming herself. Reports her last episode of depression was when 07/2021 after she came back from a visit in [place]. Says her sleep is ?so, so,? has low energy in the day. Pt says she hears voices but ?I dont pay attention,? unable to identify what they are saying. Currently denies SI, no plan or intent. Pt unable to identify precipitating factors for her depression other than arguing with her daughter sometimes. Discussed report that she was pouring bleach on meat and pt says it was ?so it didnt give a bad smell,? as she believes it had worms in it, she denies drinking the bleach. She denies anxiety. Denies nightmares or flashbacks.? I spoke with pt?s daughter. She reports since depakote was increased recently, she has noticed pt has tremors. She also does not feel it has helped with pt?s behaviors. Per daughter, pt?s behaviors are worse at night, ?she starts acting weird,? i.e. she is up all night, will change her clothes i.e. puts on heels, purse, packs bags, and tries to leave the house. Per daughter, pt has delusional belief that ?she has something in her tongue.? Pt has also been responding to internal stimuli, laughing to herself and talking to someone who is not there. Per daughter, pt has had the most benefit from invega, however she was non-adherent with PO medication and invega sustenna was started in 07/2021. The NÚÑEZ was then discontinued due to involuntary oral/face movements, rigidity. Pt has been on abilify since 05/2021 and this was recently increased to 10 mg BID in 04/15/22. In the past, pt has a hx of non-adherence to PO meds, will put them in the trash.?Daughter also reports at [facility] her mom was given a MOCA and scored a 15, she is concerned with early onset dementia.? Past Psychiatric History: -Past meds: invega collins (rigidity, EPS) -Hx of IPLOC 03/27 at [facility] x three weeks after pt was not sleeping, roaming the house at night and trying to leave, had delusional belief there were worms in her fingers and was picking her skin with knives. Prev admissions to [facility] in 07/2021 due to delusion that there were worms in her fingers. Admitted to [facility] in 2015 due to [facility] telling her to kill herself, not sleeping.? -Has OP psych services at [facility] Medical Evaluation Reviewed: Yes HOSPITAL COURSE On the unit, Mrs. Stover was admitted on a CV and placed on 15 minutes checks for safety. Pt presented as internally preoccupied, less oral intake as pt reported food had bugs and was rotten. She reported feeling depressed, hearing voices that at times she couldn't understand what they were telling her. She denied suicidal or homicidal ideation. She was not able to sleep. After reviewing risks, benefits and alternative treatment options, pt has hx of severe EPS with higher potency antipsychotics such as haldol, and even paliperidone. She was started on abilify back in March but was not very effective. She was also started on March on depakote and pt appeared increasingly more disoriented which is not her usual even when psychotic. Ammonia levels with depakote were wnl, however, depakote can cause confusion even when ammonia levels are normal. Therefore, depakote was discontinued and significant improvement on orientation and confusion. However, she continued to present with AH, delusions. She was switched from abilify to olanzapine. She did have bilat cogwheel with olanzapine with higher dose (about 20mg). Therefore, olanzapine was decreased to 5mg po BID and cogentin was added. She was also started on [place] for mood and hoping to boost effect of antipsychotic. She gradually presented with much brighter, but non labile affect. She was having coherent and logical conversations. She was no longer reporting that food had bugs or bugs coming out of her body, not seeing shadows nor hearing voices. She denied SI/HI. She was eating and sleeping well. I did add low dose of ativan 0.5mg po qhs to aid with sleep at night with good effect. Collateral information gathered from daughter, who agrees pt appears in much improved condition and denied any safety concerns at time of discharged. Status at Discharge Cognitive/behavioral status at discharge: Pt with brighter, non labile affect. Much less AH, VH, no overt paranoid delusions. Sleep and appetite improved. No SI/HI. No signs of aggression towards self or others. Functional status at discharge: independent ambulation Overall status at discharge: patient is progressing back to baseline Time Spent with Patient Time attestation: Total time spent providing and/or coordinating discharge services: Time spent: Greater than 30 minutes Discharge Plan Discharge Patient Disposition: Home Health Service Discharge Diagnosis: Schizoaffective Disorder Referrals: Latisha Moss (therapists) [Other] - 05/19/22 1:00 pm (Appointment scheduled with latisha Moss on Thursday, May 19, 2022 @ 1 PM IN-OFFICE visit.) DR. Recio (psychiatrists) [Other] - 05/21/22 8:00 am (Appt scheduled for May @ 8 AM via telehealth.) [facility] [Other] - 3-5 Days (Martina attends [facility] daily for day structure and stimulation.) [facility] [Other] - 3-5 Days ([facility] JO Dolan called and LM with dischrge date, waiting for return phone call.) [facility] [Physician] - 1 Week Discharge Medications: New olanzapine 5 mg Tablet 5 mg PO BID Qty: 60 0RF lorazepam 0.5 mg Tablet 0.5 mg PO BEDTIME Qty: 30 0RF lithium carbonate 300 mg Capsule 300 mg PO BID Qty: 60 0RF benztropine 1 mg Tablet 1 mg PO BID Qty: 60 0RF levothyroxine 25 mcg Tablet 25 mcg PO DAILY@0600 Qty: 30 0RF cholecalciferol (vitamin D3) [Vitamin D3] 10 mcg (400 unit) Tablet 10 mcg PO DAILY Qty: 30 0RF Discontinued aripiprazole [Abilify] 10 mg tablet 1 tab PO BID benztropine 0.5 mg tablet 1 tab PO BID PRN (Reason: Extrapyramidal Effects/Symptoms) omeprazole 40 mg capsule,delayed release(DR/EC) 1 cap PO DAILY levothyroxine 25 mcg tablet 1 tab PO DAILY divalproex [Depakote ER] 500 mg tablet extended release 24 hr 2 tab PO BEDTIME fluoxetine 20 mg capsule 1 cap PO QAM cholecalciferol (vitamin D3) [Vitamin D3] 10 mcg (400 unit) tablet 1 tab PO DAILY divalproex 250 mg tablet extended release 24 hr 1 tab PO DAILY trazodone 50 mg tablet 1 tab PO BEDTIME PRN (Reason: Insomnia) Discharge Orders: Discharge Order (Routine); Ordered 05/15/22 Ordered By: Consuelo Haley Diet: Regular diet Activity on Discharge: As tolerated Stand Alone Forms: Patient Portal Discharge page Print Language: Brazilian Care Plan Goals: 1. Maintain mood 2. No SI/HI 3. Less AH, less paranoid Health Concerns: Follow up with PCP Plan of Treatment: 1. Continue current medications, take as prescribed. 2. Go to nearest ED or call 911 in event of emergency. Assessment: Pt with brighter, non labile affect. No SI/HI. Much less paranoid delusions. Less AH/VH. No signs of aggression towards self or others. Patient Instructions: Urinary Tract Infection in Women (ED), Depression (ED)
--- NOTE | 2022-05-15 12:09 | PC.NURSE ---
Patient alert and oriented x4. interpreter used. Patient reports an understanding of discharge instructions and is in agreement with. Patient denies SI/HI/AH/VH. Reports being ready to go. Denies acute complaints.
== END 2022-05-15 11:50 | disposition home health service (06) | DRG 750 ==
LOC: HO.ED 04-23 08:33 → HO.PADLT16 04-23 16:25
PROVIDERS: Emergency Medicine; Physician Assistant Medical; Registered Nurse; Admitting Provider Social Worker; Emergency Provider Emergency Medicine Emergency Medical Services; Visit Provider Social Worker
DX: F25.0 Schizoaffective disorder, bipolar type (principal); Z20.822 Contact with and (suspected) exposure to COVID-19; Z79.890 Hormone replacement therapy; Z79.899 Other long term (current) drug therapy
CPT/HCPCS: 36415; 74018; 80053; 80061; 80164; 80178; 80307; 81001; 82140; 82607; 82947; 83036; 84439; 84443; 85025; 87086; 87635; 93005; 99285

== ENCOUNTER 2023-06-02 11:40 | Inpatient (IN) | payer OTHER, SELFPAY ==
--- NOTE | 2023-06-02 | ECG_ITS ---
Test Reason : medical clear Blood Pressure : / mmHG Vent. Rate : 067 BPM Atrial Rate : 067 BPM P-R Int : 134 ms QRS Dur : 074 ms QT Int : 426 ms P-R-T Axes : 055 085 042 degrees QTc Int : 450 ms Normal sinus rhythm Normal ECG When compared with ECG of 22-APR-2022 17:15, No significant change was found Referred By: Arian Gaspar Electronically Signed By:VONNIE BURLESON
[2023-06-02 12:05] VITALS: BP 154/95; BP 155/97; PULSE 92; PULSE 95; RESP 18; TEMP 36.5; O2SAT 98; BMI 22.9
[2023-06-02 12:30] LABS: MANUAL DIFF FLAG NO
[2023-06-02 12:32] LABS: Basophils Percent Auto 0.6 % (0-2); Eosinophils Percent Auto 0.6 % (0-4); Hematocrit 41.5 % (37.0-47.0); Hemoglobin 13.4 g/dl (12.0-16.0); Imm Gran Abs Auto 0.02 X10*3/uL (0.00-0.03); Imm Gran Pct Auto 0.3 % (0.0-0.4); Lymphocytes Absolute Auto 1.6 X10*3/uL (1.2-4.9); Lymphocytes Percent Auto 23.1 % (20-40); Mean Corpuscular HGB Conc 32.3 g/dl (31.0-35.0); Mean Corpuscular Hemoglobin 29.3 pg (27.0-33.0); Mean Corpuscular Volume 90.8 fL (80.0-98.0); Mean Platelet Volume 10.5 fL (9.4-12.3); Monocytes Absolute Auto 0.4 X10*3/uL (0.1-1.2); Monocytes Percent Auto 6.3 % (2-11); Neutrophils Absolute Auto 4.7 x10*3/uL (2.0-8.3); Neutrophils Percent Auto 69.1 % (45-73); Platelet Count 242 X10*3/uL (160-400); Red Blood Count 4.57 X10*6/uL (4.20-5.50); Red Cell Distribution Width 13.1 % (11.0-16.0); White Blood Count 6.8 X10*3/uL (4.8-10.8)
--- NOTE | 2023-06-02 12:45 | ED_ITS ---
HPI - Psych General Chief Complaint: Psychiatric Symptoms Stated Complaint: PSYCH EVAL,-SI/-HI,SEC 12 BY [facility] PER EMS Time Seen by Provider: 06/02/23 12:32 Source: patient and EMS Mode of arrival: EMS Limitations: no limitations History of Present Illness HPI Narrative: 62 y/o female with history of schizoaffective disorder, bipolar disorder, who presents to the ER from home via EMS for evaluation after she was found barricading herself in her room due to visual hallucinations of snakes. She states she was also having auditory hallucinations and hears voices mumbling. She states she has been very stressed, anxious and depressed at home. She lives with her daughter who has been administering her psychiatric medications. She does think she had recent medication changes but is unsure of the changes. She states for the last several weeks she has had worsening visual hallucinations of seeing snakes everywhere. She feels unsafe at home. She denies any suicidal or homicidal ideation. She states she has been eating adequately but not sleeping well at home. MD complaint: hallucinations Onset (ago): week(s) Duration: getting worse History of same: Yes Relieving factors: none Exacerbating factors: none Associated psychiatric symptoms: depression, auditory hallucinations, visual hallucinations and delusions Associated symptoms: insomnia Treatments prior to arrival: placed on mental health hold Related Data Home Medications Medication Instructions Recorded Confirmed lamotrigine 150 mg tablet 150 mg PO QAM 06/02/23 06/02/23 levothyroxine 50 mcg tablet 50 mcg PO DAILY 06/02/23 06/02/23 olanzapine 7.5 mg tablet (Zyprexa) 7.5 mg PO BID 06/02/23 06/02/23 temazepam 15 mg capsule 15 mg PO BEDTIME 06/02/23 06/02/23 Allergies Allergy/AdvReac Type Severity Reaction Status Date / Time No Known Allergies Allergy Verified 04/22/22 18:53 Review of Systems 2 Review of Systems: Yes all other systems are reviewed and are negative [facility] Social History Social History Household Members: Family Household Members Other:: Daughter and two grandchildren. Housing: Apartment Do you presently have visiting nurse or other home services: Yes Patient Tobacco Use Status: Never used Tobacco Advance Directives: No Sexual orientation: Did not discuss. Physical Exam 2 Vital Signs: Vital Signs: Last Vital Signs Temp 97 F 06/02/23 23:38 Pulse 95 06/02/23 23:38 Resp 17 06/02/23 23:38 BP 116/77 06/02/23 23:38 Pulse Ox 98 06/02/23 23:38 O2 Del Method Room Air 06/02/23 23:38 BMI result Body Mass Index 22.9 Appearance: Alert. Oriented X3. No acute distress. Head: normocephalic, atraumatic. Eyes: Pupils equal, round and reactive to light. ENT: Pharynx normal. No tonsillar swelling or exudate. Neck: Normal inspection. Neck supple. CVS: Normal heart rate and rhythm. Pulses normal. Respiratory: No respiratory distress. Breath sounds normal. Abdomen: Soft and nontender. +BS x4 Skin: Skin warm and dry. Normal skin color. Normal skin turgor. No rashes. Extremities: No lower extremity edema. No joint swelling. Neuro/psych: Oriented X 3. No motor deficit. No sensory deficit. CN II-XII intact. Normal speech and cognition. Depressed mood. makes eye contact, no active hallucinations. No SI or HI. Course Reevaluation(s) Reevaluation #1: Physician observation started at 14:05. Patient placed in physician observation because patient is awaiting CARE team evaluation for the possible need of inpatient psych admission. At the time observation was started patient's vital signs were stable. Patient is alert and oriented. Neuro exam is non-focal. CV: RRR and lungs are clear. Will continue to monitor. Time: 14:05 Reevaluation #2: Physician observation continued. currently calm but last night was agitated and given PO medications. inpatient bed search S12. VS stable . Medications Administered Generic Name Dose Route Start Last Admin Trade Name Freq PRN Reason Stop Dose Admin Lamotrigine 150 mg 06/02/23 20:17 06/02/23 20:38 Lamotrigine 100 Mg Tablet PO 150 mg DAILY MEAGAN Administration Levothyroxine Sodium 50 mcg 06/03/23 06:00 06/03/23 06:34 Levothyroxine Sodium 50 Mcg Tablet PO 50 mcg DAILY@0600 MEAGAN Administration Olanzapine 7.5 mg 06/02/23 21:00 06/02/23 20:38 Olanzapine 7.5 Mg Tablet PO 7.5 mg BID MEAGAN Administration Temazepam 15 mg 06/02/23 21:00 06/02/23 20:38 Temazepam 15 Mg Capsule PO 15 mg BEDTIME MEAGAN Administration Discontinued Medications Generic Name Dose Route Start Last Admin Trade Name Charan PRN Reason Stop Dose Admin Lorazepam 2 mg 06/03/23 02:22 06/03/23 02:28 Lorazepam 1 Mg Tablet PO 06/03/23 02:23 2 mg ONCE STA Administration Olanzapine 10 mg 06/03/23 02:22 06/03/23 02:28 Olanzapine 10 Mg Tablet PO 06/03/23 02:23 10 mg ONCE ONE Administration Medical Decision Making Medical Decision Making [facility] Narrative: 62-year-old female with history of bipolar disorder, schizoaffective disorder, last hospitalized here in 2021 presents to the ER for evaluation of worsening auditory and visual hallucinations. Patient states symptoms have been going on for weeks to months. They are getting worse. She was found very hitting herself in her room today. She did have recent medication changes but unsure what they were. Lab workup was unremarkable. Urinalysis still pending. Will need to do medication reconciliation. Care team reporting the patient is a inpatient psychiatric bed search. Patient placed in physician observation pending psychiatric placement. Will continue monitor. Differential Diagnosis Differential Diagnoses: The differential diagnosis associated with the presentation includes substance induced mood disorder, acute psychosis, schizophrenia, schizoaffective disorder, PTSD, bipolar disorder, major depression with psychotic features Admission/Observation Consideration of admission/observation: Escalation of care including admission/observation considered Lab Data [facility] Lab Attestation statement: I reviewed the patient's lab results. 06/02/23 12:23 06/02/23 12:23 Labs: Lab Results 06/02/23 06/02/23 06/02/23 Range/Units 12:23 12:31 16:20 WBC 6.8 (4.8-10.8) X10*3/uL RBC 4.57 (4.20-5.50) X10*6/uL Hgb 13.4 (12.0-16.0) g/dl Hct 41.5 (37.0-47.0) % MCV 90.8 (80.0-98.0) fL MCH 29.3 (27.0-33.0) pg MCHC 32.3 (31.0-35.0) g/dl RDW 13.1 (11.0-16.0) % Plt Count 242 (160-400) X10*3/uL MPV 10.5 (9.4-12.3) fL Immature Gran % (Auto) 0.3 (0.0-0.4) % Neut % (Auto) 69.1 (45-73) % Lymph % (Auto) 23.1 (20-40) % [place] % (Auto) 6.3 (2-11) % Eos % (Auto) 0.6 (0-4) % Baso % (Auto) 0.6 (0-2) % Lymph # (Auto) 1.6 (1.2-4.9) X10*3/uL [place] # (Auto) 0.4 (0.1-1.2) X10*3/uL Eos # (Auto) 0.0 (0.0-0.4) X10*3/uL Baso # (Auto) 0.0 (0.0-0.2) X10*3/uL Abs Immat Gran (auto) 0.02 (0.00-0.03) X10*3/uL Absolute Neuts (auto) 4.7 (2.0-8.3) x10*3/uL Absolute Nucleated RBC 0.000 (0.0-0.012) X10*3/uL Nucleated RBC % (auto) 0.0 (0.0-0.2) /100WBC Sodium 141 (135-145) mmol/L Potassium 4.0 (3.3-5.1) mmol/L Chloride 108 (96-108) mmol/L Carbon Dioxide 25 (22-29) mmol/L Anion Gap 12 (12-20) BUN 16 (9-16) mg/dL Creatinine 0.79 (0.5-1.4) mg/dL Estim Creat Clear Calc 58.4 Estimated GFR > 60 Random Glucose 105 (60-115) mg/dL Calcium 9.1 (8.4-10.2) mg/dL Total Bilirubin 0.3 (0.0-1.0) mg/dL AST 18 (5-31) U/L ALT 16 (0-31) U/L Alkaline Phosphatase 67 (39-117) U/L Total Protein 6.7 (6.5-8.0) g/dL Albumin 4.2 (3.5-5.0) g/dL TSH 0.72 (0.32-4.0) uIU/mL Urine Color Urine Appearance Urine pH (5.0-9.0) Ur Specific [place] (1.005-1.025) Urine Protein (Neg-Trace) mg/dL Urine Glucose (UA) (Negative) mg/dL Urine Ketones (Negative) mg/dL Urine Blood (Negative) Urine Nitrite (Negative) Ur Leukocyte Esterase (Negative) Urine RBC (0-2) /HPF Urine WBC (0-5) /HPF Ur Squamous Epith Cells (0-2) /HPF Urine Bacteria (None Seen) Hyaline Casts (0-2) /LPF Salicylates < 5.0 L (15-30) mg/dL Urine Opiates Screen Not Detected (Not Detect) Urine Fentanyl Screen Not Detected (Not Detect) Acetaminophen < 17 (<30) mcg/mL Ur Barbiturates Screen Not Detected (Not Detect) Ur Phencyclidine Scrn Not Detected (Not Detect) Ur Amphetamines Screen Not Detected (Not Detect) U Benzodiazepines Scrn Not Detected (Not Detect) Urine Cocaine Screen Not Detected (Not Detect) U Marijuana (THC) Screen Not Detected (Not Detect) Ethyl Alcohol < 10 mg/dL COVID-19 ([facility]) Negative (Negative) COVID-19 Clin Com See Note 06/02/23 Range/Units 18:37 WBC (4.8-10.8) X10*3/uL RBC (4.20-5.50) X10*6/uL Hgb (12.0-16.0) g/dl Hct (37.0-47.0) % MCV (80.0-98.0) fL MCH (27.0-33.0) pg MCHC (31.0-35.0) g/dl RDW (11.0-16.0) % Plt Count (160-400) X10*3/uL MPV (9.4-12.3) fL Immature Gran % (Auto) (0.0-0.4) % Neut % (Auto) (45-73) % Lymph % (Auto) (20-40) % [place] % (Auto) (2-11) % Eos % (Auto) (0-4) % Baso % (Auto) (0-2) % Lymph # (Auto) (1.2-4.9) X10*3/uL [place] # (Auto) (0.1-1.2) X10*3/uL Eos # (Auto) (0.0-0.4) X10*3/uL Baso # (Auto) (0.0-0.2) X10*3/uL Abs Immat Gran (auto) (0.00-0.03) X10*3/uL Absolute Neuts (auto) (2.0-8.3) x10*3/uL Absolute Nucleated RBC (0.0-0.012) X10*3/uL Nucleated RBC % (auto) (0.0-0.2) /100WBC Sodium (135-145) mmol/L Potassium (3.3-5.1) mmol/L Chloride (96-108) mmol/L Carbon Dioxide (22-29) mmol/L Anion Gap (12-20) BUN (9-16) mg/dL Creatinine (0.5-1.4) mg/dL Estim Creat Clear Calc Estimated GFR Random Glucose (60-115) mg/dL Calcium (8.4-10.2) mg/dL Total Bilirubin (0.0-1.0) mg/dL AST (5-31) U/L ALT (0-31) U/L Alkaline Phosphatase (39-117) U/L Total Protein (6.5-8.0) g/dL Albumin (3.5-5.0) g/dL TSH (0.32-4.0) uIU/mL Urine Color Yellow Urine Appearance Clear Urine pH 6.0 (5.0-9.0) Ur Specific [place] 1.015 (1.005-1.025) Urine Protein Negative (Neg-Trace) mg/dL Urine Glucose (UA) Negative (Negative) mg/dL Urine Ketones 40 (Negative) mg/dL Urine Blood Negative (Negative) Urine Nitrite Negative (Negative) Ur Leukocyte Esterase Large (3+) H (Negative) Urine RBC 0-2 (0-2) /HPF Urine WBC 11-20 (0-5) /HPF Ur Squamous Epith Cells 6-10 (0-2) /HPF Urine Bacteria Trace (None Seen) Hyaline Casts 3-5 (0-2) /LPF Salicylates (15-30) mg/dL Urine Opiates Screen (Not Detect) Urine Fentanyl Screen (Not Detect) Acetaminophen (<30) mcg/mL Ur Barbiturates Screen (Not Detect) Ur Phencyclidine Scrn (Not Detect) Ur Amphetamines Screen (Not Detect) U Benzodiazepines Scrn (Not Detect) Urine Cocaine Screen (Not Detect) U Marijuana (THC) Screen (Not Detect) Ethyl Alcohol mg/dL COVID-19 ([facility]) (Negative) COVID-19 Clin Com Independent Historian Clinical information obtained from an independent historian. History obtained from or confirmed by: EMS External Record Review External record reviewed: Inpatient record, Outpatient record, Prior outpatient labs and Prior outpatient radiology Prescription Management I considered prescription management with: Other (Antipsychotic) Chronic Conditions Patient?s care impacted by: Other (Schizoaffective disorder) Critical Care Time Critical Care Time Critical Care Time: No Discharge Plan Discharge Clinical Impression: Schizoaffective disorder, bipolar type Patient Disposition: Still a Patient Prescriptions: No Action lamotrigine 150 mg tablet 150 mg PO QAM olanzapine [Zyprexa] 7.5 mg tablet 7.5 mg PO BID temazepam 15 mg capsule 15 mg PO BEDTIME levothyroxine 50 mcg tablet 50 mcg PO DAILY Interventions: [place]-Suicide Risk Severity Scale Last Done: 06/03/23 06:00
[2023-06-02 12:48] LABS: Alanine Aminotransferase 16 U/L (0-31); Albumin Level 4.2 g/dL (3.5-5.0); Alkaline Phosphatase 67 U/L (39-117); Anion Gap 12 (12-20); Aspartate Amino Transferase 18 U/L (5-31); Bilirubin Total 0.3 mg/dL (0.0-1.0); Blood Urea Nitrogen 16 mg/dL (9-16); Calcium 9.1 mg/dL (8.4-10.2); Carbon Dioxide 25 mmol/L (22-29); Chloride 108 mmol/L (96-108); Creatinine Clr Calc Pharmacy 58.4; Estimated Glomerular Filt Rate > 60; Ethanol < 10 mg/dL; Glucose Random 105 mg/dL (60-115); Sodium 141 mmol/L (135-145); Total Protein 6.7 g/dL (6.5-8.0)
[2023-06-02 12:55] LABS: Acetaminophen LAB < 17 mcg/mL (<30); Salicylate < 5.0 mg/dL (15-30)
--- NOTE | 2023-06-02 14:07 | MHC.CARE ---
Patient was evaluated by [facility] in the community and is awaiting inpatient psychiatric placement.
--- NOTE | 2023-06-02 14:07 | PC.NURSE ---
Martina was BIBA after [facility] became concerned from reports she was barricading herself in her room and reported A/VH of snakes. Per EMS and information from the daughter this was after a recent medication change although it's currently unclear what medication was discontinued. Daughter is her health care proxy and should be arriving soon. Maricel was cooperative and pleasant. A hospital rail detector car operator was utilized to conduct the admission interview. Martina denies any current pain and was compliant with changing over and giving lab samples. She requested some tea and has been in her room since. Denies SI/HI.
[2023-06-02 14:11] VITALS: RESP 18
[2023-06-02 16:45] LABS: Amphetamine Screen Urine Not Detected (Not Detect); Barbiturates, Urine Not Detected (Not Detect); Benzodiazepines Screen Urine Not Detected (Not Detect); Cannabinoid Screen Urine Not Detected (Not Detect); Cocaine Screen Urine Not Detected (Not Detect); Opiate Screen Urine Not Detected (Not Detect); Phencyclidine Screen Urine Not Detected (Not Detect)
[2023-06-02 16:48] LABS: COVID-19 Test Negative (Negative); IDNOW Serial# BCCEAD1C
[2023-06-02 17:01] LABS: Fentanyl, urine Not Detected (Not Detect)
[2023-06-02 18:47] LABS: Appearance Urine Clear; Color Urine Yellow; Glucose Urine UA Negative (Negative); Leukocyte Esterase Urine Large (3+) (Negative); Nitrite Urine Negative (Negative); Specific Gravity - Urine 1.015 (1.005-1.025); UMIC TRIGGER UACC YES; Urine Blood Negative (Negative); Urine Ketones 40 mg/dL (Negative); Urine Protein Negative (Neg-Trace)
[2023-06-02 19:04] LABS: Bacteria Urine Trace (None Seen); RBC Urine 0-2 /HPF (0-2); UACC Culture Trigger YES
[2023-06-02 19:35] LABS: Thyroid Stimulating Hormone 0.72 uIU/mL (0.32-4.0)
[2023-06-02] MEDS: OLANZapine 7.5 MG TABLET PO (20:38)
[2023-06-02] MEDS: lamoTRIgine 100 MG TABLET 150 MG PO (20:38)
[2023-06-02] MEDS: Temazepam 15 MG CAPSULE PO (20:38)
[2023-06-02 20:47] VITALS: BP 158/93; PULSE 81; RESP 18; TEMP 37.2; O2SAT 98
[2023-06-02 23:38] VITALS: BP 116/77; PULSE 95; RESP 17; TEMP 36.1; O2SAT 98
--- NOTE | 2023-06-03 | ECG_ITS ---
Test Reason : TACHY Blood Pressure : / mmHG Vent. Rate : 092 BPM Atrial Rate : 092 BPM P-R Int : 130 ms QRS Dur : 074 ms QT Int : 358 ms P-R-T Axes : 075 075 050 degrees QTc Int : 442 ms Poor data quality, interpretation may be adversely affected Normal sinus rhythm Normal ECG When compared with ECG of 02-JUN-2023 23:55, No significant change was found Referred By: Consuelo Haley Electronically Signed By:VONNIE BURLESON
[2023-06-03] MEDS: OLANZapine 10 MG TABLET PO (02:28)
[2023-06-03] MEDS: LORazepam 1 MG TABLET 2 MG PO (02:28)
[2023-06-03] MEDS: Levothyroxine Sodium 50 MCG TABLET PO (06:34)
--- NOTE | 2023-06-03 06:35 | PC.NURSE ---
Patient is currently in bed appears sleeping, had intermittent sleep due to visual hallucination patient reports snake in her room, Ativan 2 mg po and Olanzapine 10 mg po administered at 0228 with + effect, medication compliant, behavior non concerning, EKG completed per care team request, patient was assessed by [facility] in the community with disposition section 12 inpatient bed search, per care team patient is pre-accepted to for today 06/03/23, labs completed/resulted, will continue to monitor.
--- NOTE | 2023-06-03 07:06 | PC.NURSE ---
patient appears to remain asleep respirations are even and unlabored patient appears in no distress
[2023-06-03] MEDS: lamoTRIgine 100 MG TABLET 150 MG PO (10:11)
[2023-06-03] MEDS: OLANZapine 7.5 MG TABLET PO (10:11)
--- NOTE | 2023-06-03 10:13 | PC.NURSE ---
client appearsawake for the day asked approriately for toothbrush and paste, will administer medications immediately.
[2023-06-03 11:08] VITALS: BP 115/58; PULSE 132; RESP 17; O2SAT 97
[2023-06-03 15:30] VITALS: BP 115/79; PULSE 85; TEMP 36.6; O2SAT 99
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
[2023-06-03] MEDS: LORazepam 0.5 MG TABLET PO (17:46)
[2023-06-03] MEDS: Temazepam 15 MG CAPSULE PO (20:39)
[2023-06-03] MEDS: OLANZapine ODT 10 MG TAB.RAPDIS TRANSLINGU (20:39)
[2023-06-04] MEDS: Levothyroxine Sodium 50 MCG TABLET PO (06:08)
[2023-06-04] MEDS: OLANZapine ODT 10 MG TAB.RAPDIS TRANSLINGU ×2 (07:48→20:45)
[2023-06-04] MEDS: lamoTRIgine 100 MG TABLET 150 MG PO (07:48)
[2023-06-04 08:05] VITALS: BP 137/87; PULSE 97; RESP 16; TEMP 36.8; O2SAT 96
[2023-06-04 09:22] LABS: Estimated Average Glucose 111 mg/dL; Hemoglobin A1c % 5.5 % (<6.0)
[2023-06-04 09:29] LABS: Cholesterol 186 mg/dL (<200); HDL Cholesterol 51 mg/dL (>40); LDL Cholesterol Calculated 125 mg/dL (<100); Triglycerides 51 mg/dL (<150)
--- NOTE | 2023-06-04 10:14 | HO.PSYCHPN ---
Subjective Subjective Date of Service: 06/04/23 Reason For Visit: Psychosis Subjective Notes: Conditional Voluntary Interim History: Pt reports feeling better here on the unit. She states she is safe here but thinks this is due to wall being thicker so snakes can get into the hospital. She continues to present as internally preoccupied, scanning the room and hypervigilant and fearful. No SI/HI. She takes medications as prescribed. unsteady gait- will check ortho VS. Review of Systems Review of Systems Yes all other systems are reviewed and are negative Mental Status Exam Mental Status Exam Narrative: Appearance:wearing hospital gown, in bed, covered with blanket, fearful, fair hygiene, in NAD Behavior:cooperative Psychomotor: no agitation or retardation noted Speech:clear, normal rate/rhythm/volume, spontaneous TP:mostly linear TC:worried about her safety, thinks someone is trying to harm her, Mood: scared' Affect: fearful, hypervigilant SI: passive, no plan or intent HI: none Delusions: paranoid delusions, also seeing snakes Insight/judgment: fair x 2. Memory/cog: alert, not oriented to place, thought she was at [facility], Diagnostics Vital Signs (24Hr): Vital Signs - 24 hr 06/03/23 11:08 06/03/23 15:30 06/04/23 08:05 Temperature 97.9 F 98.2 F Pulse Rate 132 H 85 97 Respiratory Rate 17 16 Blood Pressure 115/58 L 115/79 137/87 Pulse Oximetry 97 99 96 Oxygen Delivery Method Room Air Room Air Room Air BMI result Body Mass Index 22.9 Labs 06/02/23 12:23 06/02/23 12:23 Labs: Laboratory Results - last 48 hr 06/02/23 06/02/23 06/02/23 12:23 12:31 16:20 WBC 6.8 RBC 4.57 Hgb 13.4 Hct 41.5 MCV 90.8 MCH 29.3 MCHC 32.3 RDW 13.1 Plt Count 242 MPV 10.5 Immature Gran % (Auto) 0.3 Neut % (Auto) 69.1 Lymph % (Auto) 23.1 [place] % (Auto) 6.3 Eos % (Auto) 0.6 Baso % (Auto) 0.6 Lymph # (Auto) 1.6 [place] # (Auto) 0.4 Eos # (Auto) 0.0 Baso # (Auto) 0.0 Abs Immat Gran (auto) 0.02 Absolute Neuts (auto) 4.7 Absolute Nucleated RBC 0.000 Nucleated RBC % (auto) 0.0 Sodium 141 Potassium 4.0 Chloride 108 Carbon Dioxide 25 Anion Gap 12 BUN 16 Creatinine 0.79 Estim Creat Clear Calc 58.4 Estimated GFR > 60 Random Glucose 105 Estimat Average Glucose Hemoglobin A1c % Calcium 9.1 Total Bilirubin 0.3 AST 18 ALT 16 Alkaline Phosphatase 67 Total Protein 6.7 Albumin 4.2 Triglycerides Cholesterol LDL Cholesterol, Calc HDL Cholesterol TSH 0.72 Urine Color Urine Appearance Urine pH Ur Specific [place] Urine Protein Urine Glucose (UA) Urine Ketones Urine Blood Urine Nitrite Ur Leukocyte Esterase Urine RBC Urine WBC Ur Squamous Epith Cells Urine Bacteria Hyaline Casts Salicylates < 5.0 L Urine Opiates Screen Not Detected Urine Fentanyl Screen Not Detected Acetaminophen < 17 Ur Barbiturates Screen Not Detected Ur Phencyclidine Scrn Not Detected Ur Amphetamines Screen Not Detected U Benzodiazepines Scrn Not Detected Urine Cocaine Screen Not Detected U Marijuana (THC) Screen Not Detected Ethyl Alcohol < 10 COVID-19 ([facility]) Negative COVID-19 Clin Com See Note 06/02/23 06/04/23 18:37 08:39 WBC RBC Hgb Hct MCV MCH MCHC RDW Plt Count MPV Immature Gran % (Auto) Neut % (Auto) Lymph % (Auto) [place] % (Auto) Eos % (Auto) Baso % (Auto) Lymph # (Auto) [place] # (Auto) Eos # (Auto) Baso # (Auto) Abs Immat Gran (auto) Absolute Neuts (auto) Absolute Nucleated RBC Nucleated RBC % (auto) Sodium Potassium Chloride Carbon Dioxide Anion Gap BUN Creatinine Estim Creat Clear Calc Estimated GFR Random Glucose Estimat Average Glucose 111 Hemoglobin A1c % 5.5 Calcium Total Bilirubin AST ALT Alkaline Phosphatase Total Protein Albumin Triglycerides 51 Cholesterol 186 LDL Cholesterol, Calc 125 H HDL Cholesterol 51 TSH Urine Color Yellow Urine Appearance Clear Urine pH 6.0 Ur Specific [place] 1.015 Urine Protein Negative Urine Glucose (UA) Negative Urine Ketones 40 Urine Blood Negative Urine Nitrite Negative Ur Leukocyte Esterase Large (3+) H Urine RBC 0-2 Urine WBC 11-20 Ur Squamous Epith Cells 6-10 Urine Bacteria Trace Hyaline Casts 3-5 Salicylates Urine Opiates Screen Urine Fentanyl Screen Acetaminophen Ur Barbiturates Screen Ur Phencyclidine Scrn Ur Amphetamines Screen U Benzodiazepines Scrn Urine Cocaine Screen U Marijuana (THC) Screen Ethyl Alcohol COVID-19 ([facility]) COVID-19 Clin Com Medications Medications Current Medications Acetaminophen (Acetaminophen 325 Mg Tablet) 650 mg PO Q6H PRN PRN Reason: Headache/Pain Mild Scale (1-3) [place] Hydroxide/Mg Hydroxide (Magnesium Hydrox/Alum Hydrox 30 Ml Oral.Susp) 30 ml PO Q6H PRN PRN Reason: Heartburn/Nausea Lamotrigine (Lamotrigine 100 Mg Tablet) 150 mg PO DAILY [facility] Last Admin: 06/04/23 07:48 Dose: 150 mg Levothyroxine Sodium (Levothyroxine Sodium 50 Mcg Tablet) 50 mcg PO DAILY@0600 [facility] Last Admin: 06/04/23 06:08 Dose: 50 mcg Lorazepam (Lorazepam 0.5 Mg Tablet) 0.5 mg PO TID PRN PRN Reason: anxiety Last Admin: 06/03/23 17:46 Dose: 0.5 mg Magnesium Hydroxide (Milk Of Magnesia 30 Ml Oral.Susp) 30 ml PO DAILY PRN PRN Reason: Constipation Nicotine Polacrilex (Nicotine Polacrilex 2 Mg Gum) 4 mg BUCCAL Q2H PRN PRN Reason: Nicotine Cravings Olanzapine (Olanzapine Odt 10 Mg Tab.Rapdis) 10 mg TRANSLINGU BID [facility] Last Admin: 06/04/23 07:48 Dose: 10 mg Olanzapine (Olanzapine 5 Mg Tablet) 5 mg PO TID PRN PRN Reason: agitation Temazepam (Temazepam 15 Mg Capsule) 15 mg PO BEDTIME [facility] Last Admin: 06/03/23 20:39 Dose: 15 mg Trazodone HCl (Trazodone Hcl 50 Mg Tablet) 50 mg PO BEDTIME [id number] PRN PRN Reason: Insomnia Allergies Allergies Allergy/AdvReac Type Severity Reaction Status Date / Time depakote AdvReac Severe encephalopa Uncoded 06/04/23 10:02 thy Assessment & Plan Assessment & Plan (1) Schizoaffective disorder, bipolar type: Status: Acute Code(s): F25.0 - Schizoaffective disorder, bipolar type Plan Mrs. Stover is a 62 year-old woman with hx of Schizoaffective Disorder who was brought [place] [facility] due to increase paranoid ideas, along with seeing snakes, which she senses someone is sending to harm her. She was barricating herself in the room and not letting daughter come insight. We discussed risks, benefits and alternative treatment options. Pt agrees to increase dose of olanzapine- will give disintegrating tablets- for now 10mg po BID- but as gets more stable may switch to bedtime to lower dose as jail may be too sedating for her. PLAN 1. Admit to M5, CV, 15 minutes checks for safety 2. start olanzapine 10mg po BID 3. Obtain collateral information 4. Aftercare planning. 06/04 continue tx. Reason for continued inpatient stay Substantial Risk for: inability to function Time Spent With Patient Time: Total time managing care of this patient today ____ minutes.
[2023-06-04 17:14] VITALS: BP 125/74; PULSE 105; TEMP 36.6; O2SAT 99
[2023-06-04] MEDS: Temazepam 15 MG CAPSULE PO (20:45)
[2023-06-05] MEDS: Levothyroxine Sodium 50 MCG TABLET PO (05:57)
[2023-06-05 08:00] VITALS: BP 128/78; PULSE 81; RESP 16; TEMP 36.6; O2SAT 91
[2023-06-05] MEDS: lamoTRIgine 100 MG TABLET 150 MG PO (08:37)
[2023-06-05] MEDS: OLANZapine ODT 10 MG TAB.RAPDIS TRANSLINGU (08:37)
[2023-06-05] MEDS: LORazepam 0.5 MG TABLET PO (08:38)
[2023-06-05 11:49] VITALS: BP 103/58; PULSE 75
--- NOTE | 2023-06-05 11:49 | HO.PSYCHPN ---
Subjective Subjective Date of Service: 06/05/23 Reason For Visit: Psychosis Subjective Notes: Conditional Voluntary Interim History: Pt unsteady gait with medications. Decrease olanzapine to 5mg po daily and 10mg po qhs. d/c ativan- does make pt more confused and sedated. Pt reports feeling better today, continues to think someone was trying to harm her but feels better and safer here. She is taking medications as prescribed. No SI/HI. Review of Systems Review of Systems Yes all other systems are reviewed and are negative Mental Status Exam Mental Status Exam Narrative: Appearance:wearing hospital gown, in bed, covered with blanket, fearful, fair hygiene, in NAD Behavior:cooperative Psychomotor: no agitation or retardation noted Speech:clear, normal rate/rhythm/volume, spontaneous TP:mostly linear TC:worried about her safety, thinks someone is trying to harm her, Mood: scared' Affect: fearful, hypervigilant SI: passive, no plan or intent HI: none Delusions: paranoid delusions, also seeing snakes Insight/judgment: fair x 2. Memory/cog: alert, not oriented to place, thought she was at [facility], Diagnostics Vital Signs (24Hr): Vital Signs - 24 hr 06/04/23 17:14 06/05/23 08:00 Temperature 97.8 F 97.8 F Pulse Rate 105 H 81 Respiratory Rate 16 Blood Pressure 125/74 128/78 Pulse Oximetry 99 91 L Oxygen Delivery Method Room Air Room Air BMI result Body Mass Index 22.9 Labs 06/02/23 12:23 06/02/23 12:23 Labs: Laboratory Results - last 48 hr 06/04/23 08:39 Estimat Average Glucose 111 Hemoglobin A1c % 5.5 Triglycerides 51 Cholesterol 186 LDL Cholesterol, Calc 125 H HDL Cholesterol 51 Medications Medications Current Medications Acetaminophen (Acetaminophen 325 Mg Tablet) 650 mg PO Q6H PRN PRN Reason: Headache/Pain Mild Scale (1-3) [place] Hydroxide/Mg Hydroxide (Magnesium Hydrox/Alum Hydrox 30 Ml Oral.Susp) 30 ml PO Q6H PRN PRN Reason: Heartburn/Nausea Lamotrigine (Lamotrigine 100 Mg Tablet) 150 mg PO DAILY [facility] Last Admin: 06/05/23 08:37 Dose: 150 mg Levothyroxine Sodium (Levothyroxine Sodium 50 Mcg Tablet) 50 mcg PO DAILY@0600 [facility] Last Admin: 06/05/23 05:57 Dose: 50 mcg Lorazepam (Lorazepam 0.5 Mg Tablet) 0.5 mg PO TID PRN PRN Reason: anxiety Last Admin: 06/05/23 08:38 Dose: 0.5 mg Magnesium Hydroxide (Milk Of Magnesia 30 Ml Oral.Susp) 30 ml PO DAILY PRN PRN Reason: Constipation Nicotine Polacrilex (Nicotine Polacrilex 2 Mg Gum) 4 mg BUCCAL Q2H PRN PRN Reason: Nicotine Cravings Olanzapine (Olanzapine Odt 10 Mg Tab.Rapdis) 10 mg TRANSLINGU BID [facility] Last Admin: 06/05/23 08:37 Dose: 10 mg Olanzapine (Olanzapine 5 Mg Tablet) 5 mg PO TID PRN PRN Reason: agitation Temazepam (Temazepam 15 Mg Capsule) 15 mg PO BEDTIME [facility] Last Admin: 06/04/23 20:45 Dose: 15 mg Trazodone HCl (Trazodone Hcl 50 Mg Tablet) 50 mg PO BEDTIME MRX1 PRN PRN Reason: Insomnia Allergies Allergies Allergy/AdvReac Type Severity Reaction Status Date / Time depakote AdvReac Severe encephalopa Uncoded 06/04/23 10:02 thy Assessment & Plan Assessment & Plan (1) Schizoaffective disorder, bipolar type: Status: Acute Code(s): F25.0 - Schizoaffective disorder, bipolar type Plan Mrs. Stover is a 62 year-old woman with hx of Schizoaffective Disorder who was brought to [facility] due to increase paranoid ideas, along with seeing snakes, which she senses someone is sending to harm her. She was barricating herself in the room and not letting daughter come insight. We discussed risks, benefits and alternative treatment options. Pt agrees to increase dose of olanzapine- will give disintegrating tablets- for now 10mg po BID- but as gets more stable may switch to bedtime to lower dose as snf may be too sedating for her. PLAN 1. Admit to M5, CV, 15 minutes checks for safety 2. start olanzapine 10mg po BID 3. Obtain collateral information 4. Aftercare planning. 06/04 continue tx. 06/05 lower olanzapine due to orth hotn and unsteady gait to 5mg po daily and 10mg po qhs. d/c ativan, d/c temazepam. Reason for continued inpatient stay Substantial Risk for: inability to function Time Spent With Patient Time: Total time managing care of this patient today ____ minutes.
[2023-06-05 18:00] VITALS: BP 125/73; PULSE 96; RESP 18; TEMP 36.7; O2SAT 96
[2023-06-05] MEDS: Acetaminophen 325 MG TABLET 650 MG PO (21:37)
[2023-06-06] MEDS: Levothyroxine Sodium 50 MCG TABLET PO (05:53)
[2023-06-06 08:10] VITALS: BP 109/61; PULSE 114; RESP 18; TEMP 36.6; O2SAT 99
[2023-06-06] MEDS: OLANZapine 2.5 MG TABLET PO (09:04)
[2023-06-06] MEDS: lamoTRIgine 100 MG TABLET 150 MG PO (09:04)
--- NOTE | 2023-06-06 19:26 | HO.PSYCHPN ---
Subjective Subjective Date of Service: 06/06/23 Reason For Visit: Psychosis Subjective Notes: Conditional Voluntary Interim History: Pt with much more steady gait. No dizziness. Pt reports feeling less anxious. She reports she has not seen snakes here on the unit. She is visible on the unit, keeps to herself. Pt reports feeling better today, continues to think someone was trying to harm her but feels better and safer here. She is taking medications as prescribed. No SI/HI. Review of Systems Review of Systems Yes all other systems are reviewed and are negative Mental Status Exam Mental Status Exam Narrative: Appearance:casually groomed, fair hygiene, in NAD Behavior:cooperative Psychomotor: no agitation or retardation noted Speech:clear, normal rate/rhythm/volume, spontaneous TP:mostly linear TC:worried about her safety, thinks someone is trying to harm her, Mood: better' Affect: calmer, less paranoid SI: denies HI: none Delusions: less paranoid delusions Insight/judgment: fair x 2. Memory/cog: alert, oriented x 3. Diagnostics Vital Signs (24Hr): Vital Signs - 24 hr 06/06/23 08:10 Temperature 97.9 F Pulse Rate 114 H Respiratory Rate 18 Blood Pressure 109/61 Pulse Oximetry 99 Oxygen Delivery Method Room Air BMI result Body Mass Index 22.9 Labs 06/02/23 12:23 06/02/23 12:23 Medications Medications Current Medications Acetaminophen (Acetaminophen 325 Mg Tablet) 650 mg PO Q6H PRN PRN Reason: Headache/Pain Mild Scale (1-3) Last Admin: 06/05/23 21:37 Dose: 650 mg [place] Hydroxide/Mg Hydroxide (Magnesium Hydrox/Alum Hydrox 30 Ml Oral.Susp) 30 ml PO Q6H PRN PRN Reason: Heartburn/Nausea Lamotrigine (Lamotrigine 100 Mg Tablet) 150 mg PO DAILY [facility] Last Admin: 06/06/23 09:04 Dose: 150 mg Levothyroxine Sodium (Levothyroxine Sodium 50 Mcg Tablet) 50 mcg PO DAILY@0600 [facility] Last Admin: 06/06/23 05:53 Dose: 50 mcg Magnesium Hydroxide (Milk Of Magnesia 30 Ml Oral.Susp) 30 ml PO DAILY PRN PRN Reason: Constipation Nicotine Polacrilex (Nicotine Polacrilex 2 Mg Gum) 4 mg BUCCAL Q2H PRN PRN Reason: Nicotine Cravings Olanzapine (Olanzapine Odt 10 Mg Tab.Rapdis) 10 mg TRANSLINGU BEDTIME [facility] Olanzapine (Olanzapine 2.5 Mg Tablet) 2.5 mg PO TID PRN PRN Reason: agitation Olanzapine (Olanzapine 2.5 Mg Tablet) 2.5 mg PO DAILY [facility] Last Admin: 06/06/23 09:04 Dose: 2.5 mg Trazodone HCl (Trazodone Hcl 50 Mg Tablet) 50 mg PO BEDTIME [id number] PRN PRN Reason: Insomnia Allergies Allergies Allergy/AdvReac Type Severity Reaction Status Date / Time depakote AdvReac Severe encephalopa Uncoded 06/04/23 10:02 thy Assessment & Plan Assessment & Plan (1) Schizoaffective disorder, bipolar type: Status: Acute Code(s): F25.0 - Schizoaffective disorder, bipolar type Plan Mrs. Stover is a 62 year-old woman with hx of Schizoaffective Disorder who was brought [place] [facility] due to increase paranoid ideas, along with seeing snakes, which she senses someone is sending to harm her. She was barricating herself in the room and not letting daughter come insight. We discussed risks, benefits and alternative treatment options. Pt agrees to increase dose of olanzapine- will give disintegrating tablets- for now 10mg po BID- but as gets more stable may switch to bedtime to lower dose as nursing home may be too sedating for her. PLAN 1. Admit to M5, CV, 15 minutes checks for safety 2. start olanzapine 10mg po BID 3. Obtain collateral information 4. Aftercare planning. 06/04 continue tx. 06/05 lower olanzapine due to orth hotn and unsteady gait to 5mg po daily and 10mg po qhs. d/c ativan, d/c temazepam. 06/06 continue tx. Reason for continued inpatient stay Substantial Risk for: inability to function Time Spent With Patient Time: Total time managing care of this patient today ____ minutes.
[2023-06-06 20:38] VITALS: BP 151/67; PULSE 69; RESP 16; TEMP 36.1
[2023-06-06] MEDS: OLANZapine ODT 10 MG TAB.RAPDIS TRANSLINGU (21:00)
[2023-06-07] MEDS: Levothyroxine Sodium 50 MCG TABLET PO (05:43)
[2023-06-07 08:00] VITALS: BP 141/64; PULSE 110; RESP 16; TEMP 35.9; O2SAT 98
[2023-06-07] MEDS: lamoTRIgine 100 MG TABLET 150 MG PO (09:06)
[2023-06-07] MEDS: OLANZapine 2.5 MG TABLET PO (09:06)
[2023-06-07 17:13] VITALS: BP 130/81; PULSE 77; RESP 16; TEMP 36.6
--- NOTE | 2023-06-07 18:26 | P.PNPSI_ITS ---
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 Pt reports doing well on the unit. Denies SI/HI Reports visions of snakes and hears constant snake hissing at night prior to going to sleep, which interferes with latency. Discussed possible medicine increase. Pt agrees. States she feels safe on the unit Medication Compliance: Yes Side effects from medications: No Attending Groups: Intermittent Review of Systems Acute medical concerns: No Medical Review of Systems: unchanged Mental Status Exam Mental Status Exam Patient Appearance: Appropriate Patient Orientation: Person, Place, Time and Situation Level of Consciousness: Alert Patient Behavior: Appropriate, Talkative, Cooperative and Good Eye Contact Mood Description: Constricted Affect Description: Constricted Patient Cognition Impaired: No Ability to Follow Directions: Good Speech Pattern: Spontaneous Speech Memory Description: Intact Hallucinations: Auditory and Visual Thought Process: Distracted Thought Content: positive for Circumstantial, positive for Suicidal Ideation (denies) and positive for Homicidal Ideation (denies) Depressive Symptoms: Difficulty Sleeping and Difficulty Concentrating Abnormal Motor Activity Signs and Symptoms: Restlessness Judgement: Fair Diagnostics Vital Signs (24Hr): Vital Signs - 24 hr 06/06/23 20:38 06/07/23 08:00 06/07/23 17:13 Temperature 97 F 96.7 F L 98 F Pulse Rate 69 110 H 77 Respiratory Rate 16 16 16 Blood Pressure 151/67 H 141/64 H 130/81 Pulse Oximetry 98 Oxygen Delivery Method Room Air BMI result Body Mass Index 22.9 Labs 06/02/23 12:23 06/02/23 12:23 Medications Medications Current Medications Acetaminophen (Acetaminophen 325 Mg Tablet) 650 mg PO Q6H PRN PRN Reason: Headache/Pain Mild Scale (1-3) Last Admin: 06/05/23 21:37 Dose: 650 mg Al Hydroxide/Mg Hydroxide (Magnesium Hydrox/Alum Hydrox 30 Ml Oral.Susp) 30 ml PO Q6H PRN PRN Reason: Heartburn/Nausea Ibuprofen (Ibuprofen 400 Mg Tablet) 400 mg PO Q6H PRN PRN Reason: Pain, Mild (Pain Scale 1-3) Lamotrigine (Lamotrigine 100 Mg Tablet) 150 mg PO DAILY [facility] Last Admin: 06/07/23 09:06 Dose: 150 mg Levothyroxine Sodium (Levothyroxine Sodium 50 Mcg Tablet) 50 mcg PO DAILY@0600 [facility] Last Admin: 06/07/23 05:43 Dose: 50 mcg Magnesium Hydroxide (Milk Of Magnesia 30 Ml Oral.Susp) 30 ml PO DAILY PRN PRN Reason: Constipation Nicotine Polacrilex (Nicotine Polacrilex 2 Mg Gum) 4 mg BUCCAL Q2H PRN PRN Reason: Nicotine Cravings Olanzapine (Olanzapine 2.5 Mg Tablet) 2.5 mg PO TID PRN PRN Reason: agitation Olanzapine (Olanzapine 2.5 Mg Tablet) 2.5 mg PO DAILY [facility] Last Admin: 06/07/23 09:06 Dose: 2.5 mg Olanzapine (Olanzapine Odt 10 Mg Tab.Rapdis) 20 mg TRANSLINGU BEDTIME [facility] Trazodone HCl (Trazodone Hcl 50 Mg Tablet) 50 mg PO BEDTIME MRX1 PRN PRN Reason: Insomnia Allergies Allergies Allergy/AdvReac Type Severity Reaction Status Date / Time depakote AdvReac Severe encephalopa Uncoded 06/04/23 10:02 thy Assessment & Plan Assessment & Plan (1) Schizoaffective disorder, bipolar type: Status: Acute Code(s): F25.0 - Schizoaffective disorder, bipolar type Plan Mrs. Stover is a 62 year-old woman with hx of Schizoaffective Disorder who was brought to [facility] [place] ED due to increase paranoid ideas, along with seeing snakes, which she senses someone is sending to harm her. She was barricating herself in the room and not letting daughter come insight. We discussed risks, benefits and alternative treatment options. 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 PLAN 1. Admit to M5, CV, 15 minutes checks for safety 2. start olanzapine 10mg po BID 3. Obtain collateral information 4. Aftercare planning. 06/04 continue tx. 06/05 lower olanzapine due to orth hotn and unsteady gait to 5mg po daily and 10mg po qhs. d/c ativan, d/c temazepam. 06/06 continue tx. 06/07 change olanzapine to 20 mg HS Patient educated on: medication risk/benefits and therapeutic strategies Informed Consent: understands Reason for continued inpatient stay Substantial Risk for: rapid decompensation Time Spent With Patient Time: Total time managing care of this patient today ____ minutes.
[2023-06-07] MEDS: OLANZapine ODT 10 MG TAB.RAPDIS 20 MG TRANSLINGU (21:22)
[2023-06-08] MEDS: Levothyroxine Sodium 50 MCG TABLET PO (06:52)
[2023-06-08 08:00] VITALS: BP 121/73; PULSE 89; RESP 16; TEMP 36.4; O2SAT 97
[2023-06-08] MEDS: lamoTRIgine 100 MG TABLET 150 MG PO (08:20)
[2023-06-08] MEDS: OLANZapine 2.5 MG TABLET PO (08:20)
--- NOTE | 2023-06-08 10:11 | HO.PSYCHPN ---
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 She is working on a puzzle. Reports tolerating increase in medication and efficacy. Denies sx of visions/voices. Reports she is wanting to go home, has filed a three day notice of intent. Medication Compliance: Yes Side effects from medications: No Attending Groups: Intermittent Review of Systems Acute medical concerns: No Medical Review of Systems: unchanged Mental Status Exam Mental Status Exam Patient Appearance: Appropriate Patient Orientation: Person, Place, Time and Situation Level of Consciousness: Alert Patient Behavior: Appropriate, Talkative, Cooperative and Good Eye Contact Mood Description: Constricted Affect Description: Constricted Patient Cognition Impaired: No Ability to Follow Directions: Good Speech Pattern: Spontaneous Speech Memory Description: Intact Hallucinations: Auditory and Visual Thought Process: Distracted Thought Content: positive for Circumstantial, positive for Suicidal Ideation (denies) and positive for Homicidal Ideation (denies) Depressive Symptoms: Difficulty Sleeping and Difficulty Concentrating Abnormal Motor Activity Signs and Symptoms: Restlessness Judgement: Fair Diagnostics Vital Signs (24Hr): Vital Signs - 24 hr 06/07/23 17:13 06/08/23 08:00 Temperature 98 F 97.5 F Pulse Rate 77 89 Respiratory Rate 16 16 Blood Pressure 130/81 121/73 Pulse Oximetry 97 Oxygen Delivery Method Room Air BMI result Body Mass Index 22.9 Labs 06/02/23 12:23 06/02/23 12:23 Medications Medications Current Medications Acetaminophen (Acetaminophen 325 Mg Tablet) 650 mg PO Q6H PRN PRN Reason: Headache/Pain Mild Scale (1-3) Last Admin: 06/05/23 21:37 Dose: 650 mg Al Hydroxide/Mg Hydroxide (Magnesium Hydrox/Alum Hydrox 30 Ml Oral.Susp) 30 ml PO Q6H PRN PRN Reason: Heartburn/Nausea Ibuprofen (Ibuprofen 400 Mg Tablet) 400 mg PO Q6H PRN PRN Reason: Pain, Mild (Pain Scale 1-3) Lamotrigine (Lamotrigine 100 Mg Tablet) 150 mg PO DAILY [facility] Last Admin: 06/08/23 08:20 Dose: 150 mg Levothyroxine Sodium (Levothyroxine Sodium 50 Mcg Tablet) 50 mcg PO DAILY@0600 [facility] Last Admin: 06/08/23 06:52 Dose: 50 mcg Magnesium Hydroxide (Milk Of Magnesia 30 Ml Oral.Susp) 30 ml PO DAILY PRN PRN Reason: Constipation Nicotine Polacrilex (Nicotine Polacrilex 2 Mg Gum) 4 mg BUCCAL Q2H PRN PRN Reason: Nicotine Cravings Olanzapine (Olanzapine 2.5 Mg Tablet) 2.5 mg PO TID PRN PRN Reason: agitation Olanzapine (Olanzapine 2.5 Mg Tablet) 2.5 mg PO DAILY [facility] Last Admin: 06/08/23 08:20 Dose: 2.5 mg Olanzapine (Olanzapine Odt 10 Mg Tab.Rapdis) 20 mg TRANSLINGU BEDTIME [facility] Last Admin: 06/07/23 21:22 Dose: 20 mg Trazodone HCl (Trazodone Hcl 50 Mg Tablet) 50 mg PO BEDTIME MRX1 PRN PRN Reason: Insomnia Allergies Allergies Allergy/AdvReac Type Severity Reaction Status Date / Time depakote AdvReac Severe encephalopa Uncoded 06/04/23 10:02 thy Assessment & Plan Assessment & Plan (1) Schizoaffective disorder, bipolar type: Status: Acute Code(s): F25.0 - Schizoaffective disorder, bipolar type Plan Mrs. Stover is a 62 year-old woman with hx of Schizoaffective Disorder who was brought to [facility] ED due to increase paranoid ideas, along with seeing snakes, which she senses someone is sending to harm her. She was barricating herself in the room and not letting daughter come insight. We discussed risks, benefits and alternative treatment options. 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 PLAN 1. Admit to M5, CV, 15 minutes checks for safety 2. start olanzapine 10mg po BID 3. Obtain collateral information 4. Aftercare planning. 06/04 continue tx. 06/05 lower olanzapine due to orth hotn and unsteady gait to 5mg po daily and 10mg po qhs. d/c ativan, d/c temazepam. 06/06 continue tx. 06/08/23-continue current regime and plan. Three day notice filed. Patient educated on: therapeutic strategies Informed Consent: understands and further education needed Reason for continued inpatient stay Substantial Risk for: rapid decompensation Time Spent With Patient Time: Total time managing care of this patient today ____ minutes.
[2023-06-08] MEDS: Ibuprofen 400 MG TABLET PO (10:16)
[2023-06-08] MEDS: Acetaminophen 325 MG TABLET 650 MG PO (14:15)
[2023-06-08 18:00] VITALS: BP 128/82; PULSE 84; RESP 16; TEMP 36.4; O2SAT 97
[2023-06-08] MEDS: OLANZapine ODT 10 MG TAB.RAPDIS 20 MG TRANSLINGU (20:54)
[2023-06-09] MEDS: Levothyroxine Sodium 50 MCG TABLET PO (05:56)
[2023-06-09] MEDS: lamoTRIgine 100 MG TABLET 150 MG PO (08:13)
[2023-06-09] MEDS: OLANZapine 2.5 MG TABLET PO (08:13)
[2023-06-09 08:15] VITALS: BP 142/94; PULSE 85; RESP 16; TEMP 36.1; O2SAT 96
[2023-06-09] MEDS: Magnesium Hydrox/Alum Hydrox 30 ML ORAL.SUSP PO (09:12)
--- NOTE | 2023-06-09 16:12 | HO.PSYCHPN ---
Subjective Subjective Date of Service: 06/09/23 Reason For Visit: Psychosis Subjective Notes: Conditional Voluntary and 3 Day (Retracted today) Healthcare Proxy: No Guardianship: No Medical Problems Affecting Mental Status: No Interim History: Pt retracted TDN. She continues to report her experience of the existance of snakes. She is using salt and pepper to deter them. She states they are coming in from a hole in the wall and she believes there is only one who keeps appearing. Pt agreed to further eval. Will begin dementia/LBD assessment. Medication Compliance: Yes Side effects from medications: No Attending Groups: Intermittent Review of Systems Acute medical concerns: No Medical Review of Systems: unchanged Mental Status Exam Mental Status Exam Patient Appearance: Appropriate Patient Orientation: Person, Place, Time and Situation Level of Consciousness: Alert Patient Behavior: Appropriate, Talkative, Cooperative and Good Eye Contact Mood Description: Constricted Affect Description: Constricted Patient Cognition Impaired: No Ability to Follow Directions: Good Speech Pattern: Spontaneous Speech Memory Description: Intact Hallucinations: Auditory and Visual Thought Process: Distracted Thought Content: positive for Circumstantial, positive for Suicidal Ideation (denies) and positive for Homicidal Ideation (denies) Depressive Symptoms: Difficulty Sleeping and Difficulty Concentrating Abnormal Motor Activity Signs and Symptoms: Restlessness Judgement: Fair Diagnostics Vital Signs (24Hr): Vital Signs - 24 hr 06/08/23 18:00 06/09/23 08:15 Temperature 97.6 F 96.9 F Pulse Rate 84 85 Respiratory Rate 16 16 Blood Pressure 128/82 142/94 H Pulse Oximetry 97 96 Oxygen Delivery Method Room Air Room Air BMI result Body Mass Index 22.9 Labs 06/02/23 12:23 06/02/23 12:23 Medications Medications Current Medications Acetaminophen (Acetaminophen 325 Mg Tablet) 650 mg PO Q6H PRN PRN Reason: Headache/Pain Mild Scale (1-3) Last Admin: 06/08/23 14:15 Dose: 650 mg Al Hydroxide/Mg Hydroxide (Magnesium Hydrox/Alum Hydrox 30 Ml Oral.Susp) 30 ml PO Q6H PRN PRN Reason: Heartburn/Nausea Last Admin: 06/09/23 09:12 Dose: 30 ml Ibuprofen (Ibuprofen 400 Mg Tablet) 400 mg PO Q6H PRN PRN Reason: Pain, Mild (Pain Scale 1-3) Last Admin: 06/08/23 10:16 Dose: 400 mg Lamotrigine (Lamotrigine 100 Mg Tablet) 150 mg PO DAILY [facility] Last Admin: 06/09/23 08:13 Dose: 150 mg Levothyroxine Sodium (Levothyroxine Sodium 50 Mcg Tablet) 50 mcg PO DAILY@0600 [facility] Last Admin: 06/09/23 05:56 Dose: 50 mcg Magnesium Hydroxide (Milk Of Magnesia 30 Ml Oral.Susp) 30 ml PO DAILY PRN PRN Reason: Constipation Nicotine Polacrilex (Nicotine Polacrilex 2 Mg Gum) 4 mg BUCCAL Q2H PRN PRN Reason: Nicotine Cravings Olanzapine (Olanzapine 2.5 Mg Tablet) 2.5 mg PO TID PRN PRN Reason: agitation Olanzapine (Olanzapine 2.5 Mg Tablet) 2.5 mg PO DAILY [facility] Last Admin: 06/09/23 08:13 Dose: 2.5 mg Olanzapine (Olanzapine Odt 10 Mg Tab.Rapdis) 20 mg TRANSLINGU BEDTIME [facility] Last Admin: 06/08/23 20:54 Dose: 20 mg Trazodone HCl (Trazodone Hcl 50 Mg Tablet) 50 mg PO BEDTIME MRX1 PRN PRN Reason: Insomnia Allergies Allergies Allergy/AdvReac Type Severity Reaction Status Date / Time depakote AdvReac Severe encephalopa Uncoded 06/04/23 10:02 thy Assessment & Plan Assessment & Plan (1) Schizoaffective disorder, bipolar type: Status: Acute Code(s): F25.0 - Schizoaffective disorder, bipolar type Plan Mrs. Stover is a 62 year-old woman with hx of Schizoaffective Disorder who was brought to [facility] ED due to increase paranoid ideas, along with seeing snakes, which she senses someone is sending to harm her. She was barricating herself in the room and not letting daughter come insight. We discussed risks, benefits and alternative treatment options. 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 PLAN 1. Admit to M5, CV, 15 minutes checks for safety 2. start olanzapine 10mg po BID 3. Obtain collateral information 4. Aftercare planning. 06/04 continue tx. 06/05 lower olanzapine due to orth hotn and unsteady gait to 5mg po daily and 10mg po qhs. d/c ativan, d/c temazepam. 06/06 continue tx. 06/08/23-continue current regime and plan. Three day notice filed. 06/09/23-Dementia assessement- B12,Folate, CAT Brain, RPR, HIV, EEG. TSH, CBC,ChemPanel, UA are all unremarkable Patient educated on: therapeutic strategies Informed Consent: further education needed Reason for continued inpatient stay Substantial Risk for: rapid decompensation Time Spent With Patient Time: Total time managing care of this patient today ____ minutes.
[2023-06-09 20:18] VITALS: BP 131/81; PULSE 86; RESP 16; TEMP 36.6
[2023-06-09] MEDS: OLANZapine ODT 10 MG TAB.RAPDIS 20 MG TRANSLINGU (20:27)
[2023-06-10] MEDS: Levothyroxine Sodium 50 MCG TABLET PO (06:24)
[2023-06-10 07:00] VITALS: BMI 23.0
[2023-06-10 08:00] VITALS: BP 147/92; PULSE 102; RESP 16; TEMP 36.9; O2SAT 98
[2023-06-10] MEDS: lamoTRIgine 100 MG TABLET 150 MG PO (09:17)
[2023-06-10] MEDS: OLANZapine 2.5 MG TABLET PO (09:18)
--- NOTE | 2023-06-10 15:53 | HO.PSYCHPN ---
Subjective Subjective Date of Service: 06/10/23 Reason For Visit: Psychosis Subjective Notes: Conditional Voluntary Interim History: Pt agrees to further evaluation of symptoms/dementia eval. At this time testing is unremarkable. Pt is engaged in activities, at times with peers, at times in her room. States she misses her grandchildren. Reports one snake is seen at night, always the same snake, however, now not during the day is the snake a problem. Medication Compliance: Yes Side effects from medications: No Attending Groups: Intermittent Review of Systems Acute medical concerns: No Medical Review of Systems: unchanged Mental Status Exam Mental Status Exam Patient Appearance: Appropriate Patient Orientation: Person, Place, Time and Situation Level of Consciousness: Alert Patient Behavior: Appropriate, Talkative, Cooperative and Good Eye Contact Mood Description: Constricted Affect Description: Constricted Patient Cognition Impaired: No Ability to Follow Directions: Good Speech Pattern: Spontaneous Speech Memory Description: Intact Hallucinations: Auditory and Visual Thought Process: Distracted Thought Content: positive for Circumstantial, positive for Suicidal Ideation (denies) and positive for Homicidal Ideation (denies) Depressive Symptoms: Difficulty Sleeping and Difficulty Concentrating Abnormal Motor Activity Signs and Symptoms: Restlessness Judgement: Fair Diagnostics Vital Signs (24Hr): Vital Signs - 24 hr 06/09/23 20:18 06/10/23 08:00 Temperature 97.8 F 98.5 F Pulse Rate 86 102 H Respiratory Rate 16 16 Blood Pressure 131/81 147/92 H Pulse Oximetry 98 Oxygen Delivery Method Room Air BMI result Body Mass Index 23.0 Labs 06/02/23 12:23 06/02/23 12:23 Labs: Laboratory Results - last 48 hr 06/10/23 10:48 Vitamin B12 750 Folate 8.8 T.pallidum Ab (EIA) Nonreactive HIV 1&2 Ab/P24 Ag 4thGn Nonreactive Imaging Radiology Impressions: ITS Impressions Head CT 06/10/23 10:42 IMPRESSION: 1. No evidence of acute intracranial hemorrhage or edematous territorial infarction. 2. Mild underlying microangiopathy and generalized cerebral volume loss. Medications Medications Current Medications Acetaminophen (Acetaminophen 325 Mg Tablet) 650 mg PO Q6H PRN PRN Reason: Headache/Pain Mild Scale (1-3) Last Admin: 06/08/23 14:15 Dose: 650 mg Al Hydroxide/Mg Hydroxide (Magnesium Hydrox/Alum Hydrox 30 Ml Oral.Susp) 30 ml PO Q6H PRN PRN Reason: Heartburn/Nausea Last Admin: 06/09/23 09:12 Dose: 30 ml Ibuprofen (Ibuprofen 400 Mg Tablet) 400 mg PO Q6H PRN PRN Reason: Pain, Mild (Pain Scale 1-3) Last Admin: 06/10/23 09:23 Dose: 400 mg Lamotrigine (Lamotrigine 100 Mg Tablet) 150 mg PO DAILY [facility] Last Admin: 06/10/23 09:17 Dose: 150 mg Levothyroxine Sodium (Levothyroxine Sodium 50 Mcg Tablet) 50 mcg PO DAILY@0600 [facility] Last Admin: 06/10/23 06:24 Dose: 50 mcg Magnesium Hydroxide (Milk Of Magnesia 30 Ml Oral.Susp) 30 ml PO DAILY PRN PRN Reason: Constipation Nicotine Polacrilex (Nicotine Polacrilex 2 Mg Gum) 4 mg BUCCAL Q2H PRN PRN Reason: Nicotine Cravings Olanzapine (Olanzapine 2.5 Mg Tablet) 2.5 mg PO TID PRN PRN Reason: agitation Last Admin: 06/10/23 12:06 Dose: 2.5 mg Olanzapine (Olanzapine 2.5 Mg Tablet) 2.5 mg PO DAILY [facility] Last Admin: 06/10/23 09:18 Dose: 2.5 mg Olanzapine (Olanzapine Odt 10 Mg Tab.Rapdis) 20 mg TRANSLINGU BEDTIME [facility] Last Admin: 06/09/23 20:27 Dose: 20 mg Trazodone HCl (Trazodone Hcl 50 Mg Tablet) 50 mg PO BEDTIME MRX1 PRN PRN Reason: Insomnia Allergies Allergies Allergy/AdvReac Type Severity Reaction Status Date / Time depakote AdvReac Severe encephalopa Uncoded 06/04/23 10:02 thy Assessment & Plan Assessment & Plan (1) Schizoaffective disorder, bipolar type: Status: Acute Code(s): F25.0 - Schizoaffective disorder, bipolar type Plan Mrs. Stover is a 62 year-old woman with hx of Schizoaffective Disorder who was brought to [facility] ED due to increase paranoid ideas, along with seeing snakes, which she senses someone is sending to harm her. She was barricating herself in the room and not letting daughter come insight. We discussed risks, benefits and alternative treatment options. Pt agrees to increase dose of olanzapine- will give disintegrating tablets- for now 10mg po BID- but as gets more stable may switch to bedtime to lower dose as detention may be too sedating for her. PLAN 1. Admit to M5, CV, 15 minutes checks for safety 2. start olanzapine 10mg po BID 3. Obtain collateral information 4. Aftercare planning. 06/04 continue tx. 06/05 lower olanzapine due to orth hotn and unsteady gait to 5mg po daily and 10mg po qhs. d/c ativan, d/c temazepam. 06/06 continue tx. 06/08/23-continue current regime and plan. Three day notice filed. 06/09/23-Dementia assessement- B12,Folate, CAT Brain, RPR, HIV, EEG. TSH, CBC,ChemPanel, UA are all unremarkable 06/10/23 Continue regime and plan Informed Consent: further education needed Reason for continued inpatient stay Substantial Risk for: rapid decompensation Time Spent With Patient Time: Total time managing care of this patient today ____ minutes.
[2023-06-10 20:05] VITALS: BP 130/88; PULSE 98; RESP 18; TEMP 36.8; O2SAT 97
[2023-06-11] MEDS: Levothyroxine Sodium 50 MCG TABLET PO (06:36)
[2023-06-11] MEDS: lamoTRIgine 100 MG TABLET 150 MG PO (08:49)
--- NOTE | 2023-06-11 11:26 | HO.PSYCHPN ---
Subjective Subjective Date of Service: 06/11/23 Reason For Visit: Psychosis Subjective Notes: Conditional Voluntary Healthcare Proxy: No Guardianship: No Medical Problems Affecting Mental Status: No Interim History: Reports feeling anxious, depressed, stressed. Reports cough, congestion, lungs feeling tight which started after 12pm today. ARVIN trejox. Missing home and family Declined EEG today as she was not feeling well. Snakes continue to be seen at night, coming in the screen . Pt reports this is one consistent snake, not present during the day. Medication Compliance: Yes Side effects from medications: No Attending Groups: Intermittent Review of Systems Acute medical concerns: No Medical Review of Systems: unchanged Mental Status Exam Mental Status Exam Patient Appearance: Appropriate Patient Orientation: Person, Place, Time and Situation Level of Consciousness: Alert Patient Behavior: Appropriate, Talkative, Cooperative and Good Eye Contact Mood Description: Constricted Affect Description: Constricted Patient Cognition Impaired: No Ability to Follow Directions: Good Speech Pattern: Spontaneous Speech Memory Description: Intact Hallucinations: Auditory and Visual Thought Process: Distracted Thought Content: positive for Circumstantial, positive for Suicidal Ideation (denies) and positive for Homicidal Ideation (denies) Depressive Symptoms: Difficulty Sleeping and Difficulty Concentrating Abnormal Motor Activity Signs and Symptoms: Restlessness Judgement: Fair Diagnostics Vital Signs (24Hr): Vital Signs - 24 hr 06/10/23 20:05 Temperature 98.2 F Pulse Rate 98 Respiratory Rate 18 Blood Pressure 130/88 Pulse Oximetry 97 Oxygen Delivery Method Room Air BMI result Body Mass Index 23.0 Labs 06/02/23 12:23 06/02/23 12:23 Labs: Laboratory Results - last 48 hr 06/10/23 10:48 Vitamin B12 750 Folate 8.8 T.pallidum Ab (EIA) Nonreactive HIV 1&2 Ab/P24 Ag 4thGn Nonreactive Imaging Radiology Impressions: ITS Impressions Head CT 06/10/23 10:42 IMPRESSION: 1. No evidence of acute intracranial hemorrhage or edematous territorial infarction. 2. Mild underlying microangiopathy and generalized cerebral volume loss. Medications Medications Current Medications Acetaminophen (Acetaminophen 325 Mg Tablet) 650 mg PO Q6H PRN PRN Reason: Headache/Pain Mild Scale (1-3) Last Admin: 06/08/23 14:15 Dose: 650 mg Al Hydroxide/Mg Hydroxide (Magnesium Hydrox/Alum Hydrox 30 Ml Oral.Susp) 30 ml PO Q6H PRN PRN Reason: Heartburn/Nausea Last Admin: 06/09/23 09:12 Dose: 30 ml Ibuprofen (Ibuprofen 400 Mg Tablet) 400 mg PO Q6H PRN PRN Reason: Pain, Mild (Pain Scale 1-3) Last Admin: 06/10/23 20:25 Dose: 400 mg Lamotrigine (Lamotrigine 100 Mg Tablet) 150 mg PO DAILY [facility] Last Admin: 06/11/23 08:49 Dose: 150 mg Levothyroxine Sodium (Levothyroxine Sodium 50 Mcg Tablet) 50 mcg PO DAILY@0600 [facility] Last Admin: 06/11/23 06:36 Dose: 50 mcg Magnesium Hydroxide (Milk Of Magnesia 30 Ml Oral.Susp) 30 ml PO DAILY PRN PRN Reason: Constipation Nicotine Polacrilex (Nicotine Polacrilex 2 Mg Gum) 4 mg BUCCAL Q2H PRN PRN Reason: Nicotine Cravings Olanzapine (Olanzapine 2.5 Mg Tablet) 2.5 mg PO TID PRN PRN Reason: agitation Last Admin: 06/10/23 12:06 Dose: 2.5 mg Olanzapine (Olanzapine 2.5 Mg Tablet) 2.5 mg PO DAILY [facility] Last Admin: 06/11/23 08:49 Dose: 2.5 mg Olanzapine (Olanzapine Odt 10 Mg Tab.Rapdis) 20 mg TRANSLINGU BEDTIME [facility] Last Admin: 06/10/23 20:25 Dose: 20 mg Trazodone HCl (Trazodone Hcl 50 Mg Tablet) 50 mg PO BEDTIME MRX1 PRN PRN Reason: Insomnia Allergies Allergies Allergy/AdvReac Type Severity Reaction Status Date / Time depakote AdvReac Severe encephalopa Uncoded 06/04/23 10:02 thy Assessment & Plan Assessment & Plan (1) Schizoaffective disorder, bipolar type: Status: Acute Code(s): F25.0 - Schizoaffective disorder, bipolar type Plan Mrs. Stover is a 62 year-old woman with hx of Schizoaffective Disorder who was brought to [facility] due to increase paranoid ideas, along with seeing snakes, which she senses someone is sending to harm her. She was barricating herself in the room and not letting daughter come insight. We discussed risks, benefits and alternative treatment options. 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 PLAN 1. Admit to M5, CV, 15 minutes checks for safety 2. start olanzapine 10mg po BID 3. Obtain collateral information 4. Aftercare planning. 06/04 continue tx. 06/05 lower olanzapine due to orth hotn and unsteady gait to 5mg po daily and 10mg po qhs. d/c ativan, d/c temazepam. 06/06 continue tx. 06/08/23-continue current regime and plan. Three day notice filed. 06/09/23-Dementia assessement- B12,Folate, CAT Brain, RPR, HIV, EEG. TSH, CBC,ChemPanel, UA are all unremarkable 06/11/23 CXR Prozac 5 mg daily Patient educated on: therapeutic strategies Informed Consent: further education needed Reason for continued inpatient stay Substantial Risk for: rapid decompensation Time Spent With Patient Time: Total time managing care of this patient today ____ minutes.
[2023-06-11 12:51] VITALS: BP 132/79; PULSE 100; RESP 16; TEMP 36.1; O2SAT 98
[2023-06-11 16:35] VITALS: BP 135/86; PULSE 88; RESP 16; TEMP 36.3; O2SAT 100
[2023-06-12 07:00] VITALS: BP 137/65; PULSE 98; RESP 16; TEMP 35.8; O2SAT 97
[2023-06-12] MEDS: Acetaminophen 325 MG TABLET 650 MG PO ×2 (08:32→19:54)
[2023-06-12 15:53] VITALS: BP 130/69; PULSE 104; RESP 16; TEMP 36.2; O2SAT 99
--- NOTE | 2023-06-12 16:35 | HO.PSYCHPN ---
Subjective Subjective Date of Service: 06/12/23 Reason For Visit: Psychosis Subjective Notes: Conditional Voluntary Interim History: Pt seen, discussed with team. Plan of care reviewed. Pt visable in milieu. Reports she is sleeping and eating well. States she continues to see the snake at night. Team points out that there is a shadow on her screen which resembles a snake and they have done reality testing with her. Reports no other symptoms-family meeting planned for next week to discuss discharge. Medication Compliance: Yes Side effects from medications: No Attending Groups: Intermittent Review of Systems Acute medical concerns: No Medical Review of Systems: unchanged Mental Status Exam Mental Status Exam Patient Appearance: Appropriate Patient Orientation: Person, Place, Time and Situation Level of Consciousness: Alert Patient Behavior: Appropriate, Talkative, Cooperative and Good Eye Contact Mood Description: Constricted Affect Description: Constricted Patient Cognition Impaired: No Ability to Follow Directions: Good Speech Pattern: Spontaneous Speech Memory Description: Intact Hallucinations: Auditory and Visual Thought Process: Distracted Thought Content: positive for Circumstantial, positive for Suicidal Ideation (denies) and positive for Homicidal Ideation (denies) Depressive Symptoms: Difficulty Sleeping and Difficulty Concentrating Abnormal Motor Activity Signs and Symptoms: Restlessness Judgement: Fair Diagnostics Vital Signs (24Hr): Vital Signs - 24 hr 06/12/23 07:00 06/12/23 15:53 Temperature 96.5 F L 97.2 F Pulse Rate 98 104 H Respiratory Rate 16 16 Blood Pressure 137/65 130/69 Pulse Oximetry 97 99 Oxygen Delivery Method Room Air Room Air BMI result Body Mass Index 23.0 Labs 06/02/23 12:23 06/02/23 12:23 Imaging Radiology Impressions: ITS Impressions Head CT 06/10/23 10:42 IMPRESSION: 1. No evidence of acute intracranial hemorrhage or edematous territorial infarction. 2. Mild underlying microangiopathy and generalized cerebral volume loss. Chest X-Ray 06/11/23 18:45 IMPRESSION: The lungs and pleural spaces are clear. Osteoporosis. Medications Medications Current Medications Acetaminophen (Acetaminophen 325 Mg Tablet) 650 mg PO Q6H PRN PRN Reason: Headache/Pain Mild Scale (1-3) Last Admin: 06/12/23 08:32 Dose: 650 mg Al Hydroxide/Mg Hydroxide (Magnesium Hydrox/Alum Hydrox 30 Ml Oral.Susp) 30 ml PO Q6H PRN PRN Reason: Heartburn/Nausea Last Admin: 06/09/23 09:12 Dose: 30 ml Fluoxetine HCl (Fluoxetine Hcl Oral Solution 20 Mg/5 Ml Solution) 5 mg PO DAILY [facility] Last Admin: 06/12/23 08:15 Dose: 5 mg Guaifenesin/Dextromethorphan (Guaifenesin Dm 200/20/10 Ml 10 Ml Syrup) 10 ml PO Q6H PRN PRN Reason: Cough Ibuprofen (Ibuprofen 400 Mg Tablet) 400 mg PO Q6H PRN PRN Reason: Pain, Mild (Pain Scale 1-3) Last Admin: 06/10/23 20:25 Dose: 400 mg Lamotrigine (Lamotrigine 100 Mg Tablet) 150 mg PO DAILY [facility] Last Admin: 06/12/23 08:14 Dose: 150 mg Levothyroxine Sodium (Levothyroxine Sodium 50 Mcg Tablet) 50 mcg PO DAILY@0600 [facility] Last Admin: 06/12/23 06:26 Dose: 50 mcg Magnesium Hydroxide (Milk Of Magnesia 30 Ml Oral.Susp) 30 ml PO DAILY PRN PRN Reason: Constipation Nicotine Polacrilex (Nicotine Polacrilex 2 Mg Gum) 4 mg BUCCAL Q2H PRN PRN Reason: Nicotine Cravings Olanzapine (Olanzapine 2.5 Mg Tablet) 2.5 mg PO TID PRN PRN Reason: agitation Last Admin: 06/10/23 12:06 Dose: 2.5 mg Olanzapine (Olanzapine 2.5 Mg Tablet) 2.5 mg PO DAILY [facility] Last Admin: 06/12/23 08:15 Dose: 2.5 mg Olanzapine (Olanzapine Odt 10 Mg Tab.Rapdis) 20 mg TRANSLINGU BEDTIME [facility] Last Admin: 06/11/23 20:22 Dose: 20 mg Trazodone HCl (Trazodone Hcl 50 Mg Tablet) 50 mg PO BEDTIME MRX1 PRN PRN Reason: Insomnia Allergies Allergies Allergy/AdvReac Type Severity Reaction Status Date / Time depakote AdvReac Severe encephalopa Uncoded 06/04/23 10:02 thy Assessment & Plan Assessment & Plan (1) Schizoaffective disorder, bipolar type: Status: Acute Code(s): F25.0 - Schizoaffective disorder, bipolar type Plan Mrs. Stover is a 62 year-old woman with hx of Schizoaffective Disorder who was brought to [facility] due to increase paranoid ideas, along with seeing snakes, which she senses someone is sending to harm her. She was barricating herself in the room and not letting daughter come insight. We discussed risks, benefits and alternative treatment options. Pt agrees to increase dose of olanzapine- will give disintegrating tablets- for now 10mg po BID- but as gets more stable may switch to bedtime to lower dose as director long term care may be too sedating for her. PLAN 1. Admit to M5, CV, 15 minutes checks for safety 2. start olanzapine 10mg po BID 3. Obtain collateral information 4. Aftercare planning. 06/04 continue tx. 06/05 lower olanzapine due to orth hotn and unsteady gait to 5mg po daily and 10mg po qhs. d/c ativan, d/c temazepam. 06/06 continue tx. 06/08/23-continue current regime and plan. Three day notice filed. 06/09/23-Dementia assessement- B12,Folate, CAT Brain, RPR, HIV, EEG. TSH, CBC,ChemPanel, UA are all unremarkable 06/11/23 CXR Prozac 5 mg daily 06/12/23 continue tx Informed Consent: further education needed Reason for continued inpatient stay Substantial Risk for: rapid decompensation Time Spent With Patient Time: Total time managing care of this patient today ____ minutes.
[2023-06-12] MEDS: Magnesium Hydrox/Alum Hydrox 30 ML ORAL.SUSP PO (20:40)
[2023-06-13] MEDS: Acetaminophen 325 MG TABLET 650 MG PO (06:32)
[2023-06-13 09:03] VITALS: BP 143/71; PULSE 80; RESP 16; TEMP 36.2; O2SAT 98
--- NOTE | 2023-06-13 13:41 | P.PNPSI_ITS ---
Subjective Subjective Date of Service: 06/13/23 Reason For Visit: Psychosis Subjective Notes: Conditional Voluntary Healthcare Proxy: No Guardianship: No Medical Problems Affecting Mental Status: No Interim History: Pt seen, discussed with the team. Pt denies issues of concern. Denies medicine SE. She reports she has a mammogram scheduled for 06/16 with [facility] and would like to attend. She has anxiety about it as there is a family history of breast cancer, although she has always been negative. She is looking forward to her family meeting on 06/15. Medication Compliance: Yes Side effects from medications: No Attending Groups: Yes Review of Systems Acute medical concerns: No Medical Review of Systems: unchanged Mental Status Exam Mental Status Exam Patient Appearance: Appropriate Patient Orientation: Person, Place, Time and Situation Level of Consciousness: Alert Patient Behavior: Appropriate, Talkative, Cooperative and Good Eye Contact Mood Description: Constricted Affect Description: Constricted Patient Cognition Impaired: No Ability to Follow Directions: Good Speech Pattern: Spontaneous Speech Memory Description: Intact Hallucinations: Auditory and Visual Thought Process: Distracted Thought Content: positive for Circumstantial, positive for Suicidal Ideation (denies) and positive for Homicidal Ideation (denies) Depressive Symptoms: Difficulty Sleeping and Difficulty Concentrating Abnormal Motor Activity Signs and Symptoms: Restlessness Judgement: Fair Diagnostics Vital Signs (24Hr): Vital Signs - 24 hr 06/12/23 15:53 06/13/23 09:03 Temperature 97.2 F 97.2 F Pulse Rate 104 H 80 Respiratory Rate 16 16 Blood Pressure 130/69 143/71 H Pulse Oximetry 99 98 Oxygen Delivery Method Room Air Room Air BMI result Body Mass Index 23.0 Labs 06/02/23 12:23 06/02/23 12:23 Imaging Radiology Impressions: ITS Impressions Head CT 06/10/23 10:42 IMPRESSION: 1. No evidence of acute intracranial hemorrhage or edematous territorial infarction. 2. Mild underlying microangiopathy and generalized cerebral volume loss. Chest X-Ray 06/11/23 18:45 IMPRESSION: The lungs and pleural spaces are clear. Osteoporosis. Medications Medications Current Medications Acetaminophen (Acetaminophen 325 Mg Tablet) 650 mg PO Q6H PRN PRN Reason: Headache/Pain Mild Scale (1-3) Last Admin: 06/13/23 06:32 Dose: 650 mg Al Hydroxide/Mg Hydroxide (Magnesium Hydrox/Alum Hydrox 30 Ml Oral.Susp) 30 ml PO Q6H PRN PRN Reason: Heartburn/Nausea Last Admin: 06/12/23 20:40 Dose: 30 ml Fluoxetine HCl (Fluoxetine Hcl Oral Solution 20 Mg/5 Ml Solution) 5 mg PO DAILY [facility] Last Admin: 06/13/23 07:57 Dose: 5 mg Guaifenesin/Dextromethorphan (Guaifenesin Dm 200/20/10 Ml 10 Ml Syrup) 10 ml PO Q6H PRN PRN Reason: Cough Ibuprofen (Ibuprofen 400 Mg Tablet) 400 mg PO Q6H PRN PRN Reason: Pain, Mild (Pain Scale 1-3) Last Admin: 06/10/23 20:25 Dose: 400 mg Lamotrigine (Lamotrigine 100 Mg Tablet) 150 mg PO DAILY [facility] Last Admin: 06/13/23 07:57 Dose: 150 mg Levothyroxine Sodium (Levothyroxine Sodium 50 Mcg Tablet) 50 mcg PO DAILY@0600 [facility] Last Admin: 06/13/23 06:30 Dose: 50 mcg Magnesium Hydroxide (Milk Of Magnesia 30 Ml Oral.Susp) 30 ml PO DAILY PRN PRN Reason: Constipation Nicotine Polacrilex (Nicotine Polacrilex 2 Mg Gum) 4 mg BUCCAL Q2H PRN PRN Reason: Nicotine Cravings Olanzapine (Olanzapine 2.5 Mg Tablet) 2.5 mg PO TID PRN PRN Reason: agitation Last Admin: 06/10/23 12:06 Dose: 2.5 mg Olanzapine (Olanzapine 2.5 Mg Tablet) 2.5 mg PO DAILY [facility] Last Admin: 06/13/23 07:57 Dose: 2.5 mg Olanzapine (Olanzapine Odt 10 Mg Tab.Rapdis) 20 mg TRANSLINGU BEDTIME [facility] Last Admin: 06/12/23 19:54 Dose: 20 mg Trazodone HCl (Trazodone Hcl 50 Mg Tablet) 50 mg PO BEDTIME MRX1 PRN PRN Reason: Insomnia Allergies Allergies Allergy/AdvReac Type Severity Reaction Status Date / Time depakote AdvReac Severe encephalopa Uncoded 06/04/23 10:02 thy Assessment & Plan Assessment & Plan (1) Schizoaffective disorder, bipolar type: Status: Acute Code(s): F25.0 - Schizoaffective disorder, bipolar type Plan Mrs. Stover is a 62 year-old woman with hx of Schizoaffective Disorder who was brought to [facility] due to increase paranoid ideas, along with seeing snakes, which she senses someone is sending to harm her. She was barricating herself in the room and not letting daughter come insight. We discussed risks, benefits and alternative treatment options. Pt agrees to increase dose of olanzapine- will give disintegrating tablets- for now 10mg po BID- but as gets more stable may switch to bedtime to lower dose as half-way may be too sedating for her. PLAN 1. Admit to M5, CV, 15 minutes checks for safety 2. start olanzapine 10mg po BID 3. Obtain collateral information 4. Aftercare planning. 06/04 continue tx. 06/05 lower olanzapine due to orth hotn and unsteady gait to 5mg po daily and 10mg po qhs. d/c ativan, d/c temazepam. 06/06 continue tx. 06/08/23-continue current regime and plan. Three day notice filed. 06/09/23-Dementia assessement- B12,Folate, CAT Brain, RPR, HIV, EEG. TSH, CBC,ChemPanel, UA are all unremarkable 06/11/23 CXR Prozac 5 mg daily 06/13/23 Continue current regime and plan. Patient educated on: therapeutic strategies and medical condition Informed Consent: further education needed Reason for continued inpatient stay Substantial Risk for: rapid decompensation Time Spent With Patient Time: Total time managing care of this patient today ____ minutes.
[2023-06-13 18:00] VITALS: BP 111/76; PULSE 118; RESP 18; TEMP 36.8; O2SAT 97
[2023-06-14 08:21] VITALS: BP 113/67; PULSE 113; RESP 18; TEMP 37.5; O2SAT 98
[2023-06-14] MEDS: Magnesium Hydrox/Alum Hydrox 30 ML ORAL.SUSP PO ×2 (11:42→23:05)
--- NOTE | 2023-06-14 13:30 | HO.PSYCHPN ---
Subjective Subjective Date of Service: 06/14/23 Reason For Visit: Psychosis Subjective Notes: Conditional Voluntary Medical Problems Affecting Mental Status: No Interim History: Pt seen, discussed with the team. Visable in the milieu. Engaged in activities with her peers. Denies issues of concern today. Denies medicine SE. Reminds junior copywriter of her mammogram on 06/16. Medication Compliance: Yes Side effects from medications: No Attending Groups: Yes Review of Systems Acute medical concerns: No Medical Review of Systems: unchanged Mental Status Exam Mental Status Exam Patient Appearance: Appropriate Patient Orientation: Person, Place, Time and Situation Level of Consciousness: Alert Patient Behavior: Appropriate, Talkative, Cooperative and Good Eye Contact Mood Description: Constricted Affect Description: Constricted Patient Cognition Impaired: No Ability to Follow Directions: Good Speech Pattern: Spontaneous Speech Memory Description: Intact Hallucinations: Auditory and Visual Thought Process: Distracted Thought Content: positive for Circumstantial, positive for Suicidal Ideation (denies) and positive for Homicidal Ideation (denies) Depressive Symptoms: Difficulty Sleeping and Difficulty Concentrating Abnormal Motor Activity Signs and Symptoms: Restlessness Judgement: Fair Diagnostics Vital Signs (24Hr): Vital Signs - 24 hr 06/13/23 18:00 06/14/23 08:21 Temperature 98.3 F 99.5 F Pulse Rate 118 H 113 H Respiratory Rate 18 18 Blood Pressure 111/76 113/67 Pulse Oximetry 97 98 Oxygen Delivery Method Room Air Room Air BMI result Body Mass Index 23.0 Labs 06/02/23 12:23 06/02/23 12:23 Imaging Radiology Impressions: ITS Impressions Head CT 06/10/23 10:42 IMPRESSION: 1. No evidence of acute intracranial hemorrhage or edematous territorial infarction. 2. Mild underlying microangiopathy and generalized cerebral volume loss. Chest X-Ray 06/11/23 18:45 IMPRESSION: The lungs and pleural spaces are clear. Osteoporosis. Medications Medications Current Medications Acetaminophen (Acetaminophen 325 Mg Tablet) 650 mg PO Q6H PRN PRN Reason: Headache/Pain Mild Scale (1-3) Last Admin: 06/13/23 06:32 Dose: 650 mg Al Hydroxide/Mg Hydroxide (Magnesium Hydrox/Alum Hydrox 30 Ml Oral.Susp) 30 ml PO Q6H PRN PRN Reason: Heartburn/Nausea Last Admin: 06/14/23 11:42 Dose: 30 ml Fluoxetine HCl (Fluoxetine Hcl Oral Solution 20 Mg/5 Ml Solution) 5 mg PO DAILY [facility] Last Admin: 06/14/23 08:50 Dose: 5 mg Guaifenesin/Dextromethorphan (Guaifenesin Dm 200/20/10 Ml 10 Ml Syrup) 10 ml PO Q6H PRN PRN Reason: Cough Ibuprofen (Ibuprofen 400 Mg Tablet) 400 mg PO Q6H PRN PRN Reason: Pain, Mild (Pain Scale 1-3) Last Admin: 06/10/23 20:25 Dose: 400 mg Lamotrigine (Lamotrigine 100 Mg Tablet) 150 mg PO DAILY [facility] Last Admin: 06/14/23 08:48 Dose: 150 mg Levothyroxine Sodium (Levothyroxine Sodium 50 Mcg Tablet) 50 mcg PO DAILY@0600 [facility] Last Admin: 06/14/23 06:30 Dose: 50 mcg Magnesium Hydroxide (Milk Of Magnesia 30 Ml Oral.Susp) 30 ml PO DAILY PRN PRN Reason: Constipation Nicotine Polacrilex (Nicotine Polacrilex 2 Mg Gum) 4 mg BUCCAL Q2H PRN PRN Reason: Nicotine Cravings Olanzapine (Olanzapine 2.5 Mg Tablet) 2.5 mg PO TID PRN PRN Reason: agitation Last Admin: 06/10/23 12:06 Dose: 2.5 mg Olanzapine (Olanzapine 2.5 Mg Tablet) 2.5 mg PO DAILY [facility] Last Admin: 06/14/23 08:48 Dose: 2.5 mg Olanzapine (Olanzapine Odt 10 Mg Tab.Rapdis) 20 mg TRANSLINGU BEDTIME [facility] Last Admin: 06/13/23 21:55 Dose: 20 mg Trazodone HCl (Trazodone Hcl 50 Mg Tablet) 50 mg PO BEDTIME MRX1 PRN PRN Reason: Insomnia Allergies Allergies Allergy/AdvReac Type Severity Reaction Status Date / Time depakote AdvReac Severe encephalopa Uncoded 06/04/23 10:02 thy Assessment & Plan Assessment & Plan (1) Schizoaffective disorder, bipolar type: Status: Acute Code(s): F25.0 - Schizoaffective disorder, bipolar type Plan Mrs. Stover is a 62 year-old woman with hx of Schizoaffective Disorder who was brought [place] [facility] due to increase paranoid ideas, along with seeing snakes, which she senses someone is sending to harm her. She was barricating herself in the room and not letting daughter come insight. We discussed risks, benefits and alternative treatment options. Pt agrees to increase dose of olanzapine- will give disintegrating tablets- for now 10mg po BID- but as gets more stable may switch to bedtime to lower dose as skilled nursing may be too sedating for her. PLAN 1. Admit to M5, CV, 15 minutes checks for safety 2. start olanzapine 10mg po BID 3. Obtain collateral information 4. Aftercare planning. 06/04 continue tx. 06/05 lower olanzapine due to orth hotn and unsteady gait to 5mg po daily and 10mg po qhs. d/c ativan, d/c temazepam. 06/06 continue tx. 06/08/23-continue current regime and plan. Three day notice filed. 06/09/23-Dementia assessement- B12,Folate, CAT Brain, RPR, HIV, EEG. TSH, CBC,ChemPanel, UA are all unremarkable 06/11/23 CXR Prozac 5 mg daily 06/14/23 Continue current regime and plan. Family meetin 06/15/23. Informed Consent: further education needed Reason for continued inpatient stay Substantial Risk for: rapid decompensation Time Spent With Patient Time: Total time managing care of this patient today ____ minutes.
[2023-06-14 20:15] VITALS: BP 118/68; PULSE 90; RESP 16; TEMP 36.6; O2SAT 98
[2023-06-14] MEDS: Acetaminophen 325 MG TABLET 650 MG PO (21:46)
[2023-06-15 08:00] VITALS: BP 137/79; PULSE 95; RESP 16; TEMP 36.8; O2SAT 99
[2023-06-15] MEDS: Acetaminophen 325 MG TABLET 650 MG PO (09:07)
--- NOTE | 2023-06-15 16:45 | P.PNPSI_ITS ---
Subjective Subjective Date of Service: 06/15/23 Reason For Visit: Psychosis Subjective Notes: Conditional Voluntary Interim History: Meeting with pt and daughter. I feel OK. Diagnostics and meds reviewed. Pt will discharge 06/16. She will visit family in [place] on 06/30 for ~2 weeks. Daughter believes she looks sedate- will decrease a.m. Olanzapine. Discussed origin of hallucinations -worry, concern daughter believes. By history, pt saw worms. Invega Sustenna was effective, however, pt refuses IM History of these sx is 15 years. Will scheduled eye exam and neuro follow up Medication Compliance: Yes Side effects from medications: No Attending Groups: Intermittent Review of Systems Acute medical concerns: No Medical Review of Systems: unchanged Mental Status Exam Mental Status Exam Patient Appearance: Appropriate Patient Orientation: Person, Place, Time and Situation Level of Consciousness: Alert Patient Behavior: Appropriate, Talkative, Cooperative and Good Eye Contact Mood Description: Constricted Affect Description: Constricted Patient Cognition Impaired: No Ability to Follow Directions: Good Speech Pattern: Spontaneous Speech Memory Description: Intact Hallucinations: Auditory and Visual Thought Process: Distracted Thought Content: positive for Circumstantial, positive for Suicidal Ideation (denies) and positive for Homicidal Ideation (denies) Depressive Symptoms: Difficulty Sleeping and Difficulty Concentrating Abnormal Motor Activity Signs and Symptoms: Restlessness Judgement: Fair Diagnostics Vital Signs (24Hr): Vital Signs - 24 hr 06/14/23 20:15 06/15/23 08:00 Temperature 97.8 F 98.3 F Pulse Rate 90 95 Respiratory Rate 16 16 Blood Pressure 118/68 137/79 Pulse Oximetry 98 99 Oxygen Delivery Method Room Air Room Air BMI result Body Mass Index 23.0 Labs 06/02/23 12:23 06/02/23 12:23 Imaging Radiology Impressions: ITS Impressions Head CT 06/10/23 10:42 IMPRESSION: 1. No evidence of acute intracranial hemorrhage or edematous territorial infarction. 2. Mild underlying microangiopathy and generalized cerebral volume loss. Chest X-Ray 06/11/23 18:45 IMPRESSION: The lungs and pleural spaces are clear. Osteoporosis. Medications Medications Current Medications Acetaminophen (Acetaminophen 325 Mg Tablet) 650 mg PO Q6H PRN PRN Reason: Headache/Pain Mild Scale (1-3) Last Admin: 06/15/23 09:07 Dose: 650 mg Al Hydroxide/Mg Hydroxide (Magnesium Hydrox/Alum Hydrox 30 Ml Oral.Susp) 30 ml PO Q6H PRN PRN Reason: Heartburn/Nausea Last Admin: 06/14/23 23:05 Dose: 30 ml Fluoxetine HCl (Fluoxetine Hcl Oral Solution 20 Mg/5 Ml Solution) 5 mg PO DAILY [facility] Last Admin: 06/15/23 09:02 Dose: 5 mg Guaifenesin/Dextromethorphan (Guaifenesin Dm 200/20/10 Ml 10 Ml Syrup) 10 ml PO Q6H PRN PRN Reason: Cough Ibuprofen (Ibuprofen 400 Mg Tablet) 400 mg PO Q6H PRN PRN Reason: Pain, Mild (Pain Scale 1-3) Last Admin: 06/10/23 20:25 Dose: 400 mg Lamotrigine (Lamotrigine 100 Mg Tablet) 150 mg PO DAILY [facility] Last Admin: 06/15/23 09:01 Dose: 150 mg Levothyroxine Sodium (Levothyroxine Sodium 50 Mcg Tablet) 50 mcg PO DAILY@0600 [facility] Last Admin: 06/15/23 06:36 Dose: 50 mcg Magnesium Hydroxide (Milk Of Magnesia 30 Ml Oral.Susp) 30 ml PO DAILY PRN PRN Reason: Constipation Nicotine Polacrilex (Nicotine Polacrilex 2 Mg Gum) 4 mg BUCCAL Q2H PRN PRN Reason: Nicotine Cravings Olanzapine (Olanzapine 2.5 Mg Tablet) 2.5 mg PO TID PRN PRN Reason: agitation Last Admin: 06/10/23 12:06 Dose: 2.5 mg Olanzapine (Olanzapine 2.5 Mg Tablet) 2.5 mg PO DAILY [facility] Last Admin: 06/15/23 09:02 Dose: 2.5 mg Olanzapine (Olanzapine Odt 10 Mg Tab.Rapdis) 20 mg TRANSLINGU BEDTIME [facility] Last Admin: 06/14/23 21:39 Dose: 20 mg Trazodone HCl (Trazodone Hcl 50 Mg Tablet) 50 mg PO BEDTIME MRX1 PRN PRN Reason: Insomnia Allergies Allergies Allergy/AdvReac Type Severity Reaction Status Date / Time depakote AdvReac Severe encephalopa Uncoded 06/04/23 10:02 thy Assessment & Plan Assessment & Plan (1) Schizoaffective disorder, bipolar type: Status: Acute Code(s): F25.0 - Schizoaffective disorder, bipolar type Plan Mrs. Stover is a 62 year-old woman with hx of Schizoaffective Disorder who was brought [place] [facility] due to increase paranoid ideas, along with seeing snakes, which she senses someone is sending to harm her. She was barricating herself in the room and not letting daughter come insight. We discussed risks, benefits and alternative treatment options. Pt agrees to increase dose of olanzapine- will give disintegrating tablets- for now 10mg po BID- but as gets more stable may switch to bedtime to lower dose as group home may be too sedating for her. PLAN 1. Admit to M5, CV, 15 minutes checks for safety 2. start olanzapine 10mg po BID 3. Obtain collateral information 4. Aftercare planning. 06/04 continue tx. 06/05 lower olanzapine due to orth hotn and unsteady gait to 5mg po daily and 10mg po qhs. d/c ativan, d/c temazepam. 06/06 continue tx. 06/08/23-continue current regime and plan. Three day notice filed. 06/09/23-Dementia assessement- B12,Folate, CAT Brain, RPR, HIV, EEG. TSH, CBC,ChemPanel, UA are all unremarkable 06/11/23 CXR Prozac 5 mg daily 06/12/23 continue tx 06/15/23-Discontinue Olanzapine 2.5 mg a.m. Discharge 06/16/23. Patient educated on: medication risk/benefits and medical condition Guardian/Caregiver educated on: medication risk/benefits and therapeutic strategies Informed Consent: understands and further education needed Reason for continued inpatient stay Substantial Risk for: stable for discharge Time Spent With Patient Time: Total time managing care of this patient today ____ minutes.
[2023-06-15 18:00] VITALS: BP 143/80; PULSE 99; RESP 18; TEMP 36.6; O2SAT 97
[2023-06-16 08:00] VITALS: BP 134/78; PULSE 102; RESP 16; TEMP 36.1; O2SAT 95
--- NOTE | 2023-06-16 15:13 | PM.PSYDC ---
DS: Providers Provider Date of Service: 06/16/23 Date of admission: 06/03/23 14:12 Date of discharge: 06/16/23 Primary care physician: Unknown Physician Admitting clinician: Consuelo Haley Attending physician on admission: Sesar Blackburn Attending physician on discharge: Sesar Blackburn Discharging clinician: Carol Jacobsen DS: Diagnosis Discharge Diagnosis (1) Schizoaffective disorder, bipolar type: Status: Acute DS: Medications Discharge Medications Home Medications: Previous Rx's Medication Instructions Recorded fluoxetine 10 mg tablet 5 mg (1/2 x 10 mg) PO DAILY #15 06/16/23 tabs lamotrigine 150 mg tablet 150 mg PO QAM #30 tabs 06/16/23 levothyroxine 50 mcg tablet 50 mcg PO DAILY #30 tabs 06/16/23 olanzapine 10 mg disintegrating 20 mg (2 x 10 mg) translingual 06/16/23 tablet BEDTIME #30 tabs trazodone 50 mg tablet 50 mg PO BEDTIME MRX1 PRN Insomnia 06/16/23 #30 tabs Mental Status Exam Mental Status Exam Patient Appearance: Appropriate Patient Orientation: Person, Place, Time and Situation Level of Consciousness: Alert Patient Behavior: Appropriate, Talkative, Cooperative and Good Eye Contact Mood Description: Constricted Affect Description: Constricted Patient Cognition Impaired: No Ability to Follow Directions: Good Speech Pattern: Spontaneous Speech Memory Description: Intact Hallucinations: Auditory and Visual Thought Process: Distracted Thought Content: positive for Circumstantial, positive for Suicidal Ideation (denies) and positive for Homicidal Ideation (denies) Depressive Symptoms: Difficulty Sleeping and Difficulty Concentrating Abnormal Motor Activity Signs and Symptoms: Restlessness Judgement: Fair Data Data Completed and Pending Completed studies during hospitalization [Text1]: 06/10/23 10:48 Vitamin B12 750 Folate 8.8 T.pallidum Ab (EIA) Nonreactive HIV 1&2 Ab/P24 Ag 4thGn Nonreactive 06/02/23 Unknown Urine clean catch - Urine galvez top Urine Culture - Final Imaging Diagnostic Imaging Impressions Head CT 06/10/23 10:42 IMPRESSION: 1. No evidence of acute intracranial hemorrhage or edematous territorial infarction. 2. Mild underlying microangiopathy and generalized cerebral volume loss. Chest X-Ray 06/11/23 18:45 IMPRESSION: The lungs and pleural spaces are clear. Osteoporosis. DS: Summary Hospital Course Hospital Course: Admission to adult psychiatry for exacerbation of schizoaffective disorder, bipolar type. Family report a history of symptoms for ~15 years with a consistent sx of visual perceptual alterations of snakes. Medications were assessed and adjusted. Pt's daughter reported that the origin of the perceptual alterations they had learned over many years are pt's worry and concern about family. Pt planning a trip to family in [place] on 06/30 for a few weeks. By history, Invega Sustenna was effective, however, pt refuses all IM medication suggestions. Pt will follow up with PCP for neurology follow up. An eye appt was made with her regular provider which family reports is overdue. Pt is discharged reporting some relief of presenting symptoms. Time spent discussing smoking cessation with patient: 3 to 10 minutes Status at Discharge Functional status at discharge: independent ambulation Overall status at discharge: patient is progressing back to baseline Time Spent with Patient Time attestation: Total time managing care of this patient today ____ minutes. Time spent: Greater than 30 minutes Discharge Plan Discharge Anticipated Discharge Date/Time: 06/16/23 12:00 Patient Disposition: Home, Self-Care Discharge Diagnosis: Schizoaffective Disorder, Bipolar Type Referrals: [facility] Psychiatry w Dr. Recio [Other] - 07/06/23 2:00 pm (Telehealth) [facility] [Other] - 06/18/23 4:30 pm (IN OFFICE) [facility] Therapy w Sahra Moss [Other] - 06/18/23 2:00 pm (Telehealth) Discharge Medications: New trazodone 50 mg Tablet 50 mg PO BEDTIME MRX1 PRN (Reason: Insomnia) Qty: 30 0RF olanzapine 10 mg Tablet,Disintegrating 20 mg translingual BEDTIME Qty: 30 0RF fluoxetine 10 mg tablet 5 mg PO DAILY Qty: 15 0RF Continued lamotrigine 150 mg tablet 150 mg PO QAM Qty: 30 0RF levothyroxine 50 mcg tablet 50 mcg PO DAILY Qty: 30 0RF Discontinued olanzapine [Zyprexa] 7.5 mg tablet 7.5 mg PO BID temazepam 15 mg capsule 15 mg PO BEDTIME Discharge Orders: Discharge Order (Routine); Ordered 06/16/23 Ordered By: Carol Jacobsen Diet: Advance to usual diet Activity on Discharge: As tolerated Stand Alone Forms: Patient Portal Discharge page, Community Support Care Plan Goals: Mood and Behavioral Stabilization Health Concerns: Mood and Behavioral Stabilization Plan of Treatment: Attend scheduled appointments Take medications as directed [facility] [place] [phone] September 09, 2023 10am appointment For a neurology consult, [facility] requests your primary care provider call with that referral. [phone]. Assessment: Alert, oriented, non manic, non psychotic, non suicidal, non homicidal Visual perceptual alterations persist, however pt reports are decreased. Discharge Date/Time: 06/16/23 11:04
== END 2023-06-16 11:04 | disposition home or self-care (01) | DRG 885 ==
LOC: HO.ED 17:31 → HO.PM5 06-03 14:16
PROVIDERS: Physician Assistant; Admitting Provider Psychiatry & Neurology Psychiatry; Emergency Provider Emergency Medicine; Responsible Provider Social Worker; Visit Provider Clinical Nurse Specialist Psychiatric/Mental Health, Adult
DX: F25.0 Schizoaffective disorder, bipolar type (principal); Z20.822 Contact with and (suspected) exposure to COVID-19; Z79.890 Hormone replacement therapy; Z79.899 Other long term (current) drug therapy
CPT/HCPCS: 36415; 70450; 71046; 80053; 80061; 80143; 80179; 80307; 81001; 82607; 82746; 83036; 84443; 85025; 86780; 87086; 87389; 87635; 93005; 99284

== ENCOUNTER → 2023-06-03 14:12 | Outpatient (BNV) | payer OTHER, SELFPAY | PROVIDERS: Admitting Provider Psychiatry & Neurology Psychiatry; Emergency Provider Emergency Medicine; Responsible Provider Social Worker; Visit Provider Social Worker | DX: F25.0 Schizoaffective disorder, bipolar type (principal) | CPT/HCPCS: 90792; 99231; 99232; 99239 ==